=== PATIENT | female | born 1955 | race Caucasian/White ===

== ENCOUNTER 2016-08-08 07:01 | Observation (INO) | payer OTHER ==
[2016-08-08] MEDS ORDERED: Lopressor 25MG Tab PO ONE (07:10)
[2016-08-08] MEDS ORDERED: BABY ASPIRIN 81 MG CHEW PO ONE (07:10)
[2016-08-08] MEDS ORDERED: NITRO-BID 2% UD PACKETS TOP ONE (07:10)
--- NOTE | 2016-08-08 07:17 | ERPHSYRPT ---
- History of Present Illness Time Seen by Provider: 08/08/16 07:09 Historian: patient, family Exam Limitations: no limitations Patient Subjective Stated Complaint: PT REPORTS CHEST PAIN RADIATING TO BILATERAL NECK ET UPPER BACK BEGINNING YESTERDAY-PAIN INCREASES WITH DEEP BREATHING Triage Nursing Assessment: PT PALE WARM ET DRY-A & O X 3-RESP EASY ET NONLABORED -RIGHT RADIAL PULSE REGULAR ET STRONG Physician History: patient complains of CP, onset yesterday am; woke her up; some relief with tylenol; no asa or ntg; stayed constant until worsened this am and came in; some neck and jaw pain last thursday; no sob; no fever; no trauma; no prior hx; strong family hx of heart disease; no nausea or diaphoresis; no other complaints ; no syncope Timing/Duration: yesterday, day(s) (episode of neck and jaw pain Thursday), gradual onset, worse Activities at Onset: rest Quality: aching Location: substernal Chest Pain Radiation: no radiation Severity of Pain-Max: moderate (6/10) Severity of Pain-Current: moderate (6/10) Modifying Factors: Improves With: breathing (aggravates pain), exertion ( aggravates pain), lying down (helps) Associated Symptoms: heartburn, hurts to breathe Prior Chest Pain/Cardiac Workup: no prior chest pain, no prior cardiac workup Nitro Today/Relief: no nitro taken today, provided by ED Aspirin Treatment Today: no aspirin today, provided by ED Allergies/Adverse Reactions: duloxetine [From Cymbalta] Allergy (Intermediate, Verified 08/08/16 07:14) Home Medications: Lisinopril 20 mg [Zestril 20 MG] 20 mg PO DAILY 05/05/15 [History] Phenytoin Sod Extended 100 mg* [Dilantin 100 MG] 100 mg PO 5XD 05/05/15 [ History] Sennosides [Senna Laxative] 8.6 mg PO DAILY 05/05/15 [History] Nitroglycerin 0.4 mg (Ed) [Nitrostat 0.4 MG (ED)] 0.4 mg SL UD 05/07/15 [ History] Dexlansoprazole [Dexilant] 60 mg PO DAILY 12/06/15 [History] Methylphenidate HCl [Ritalin] 20 mg PO TID 08/08/16 [History] Sertraline HCl [Zoloft] 150 mg PO DAILY 08/08/16 [History] Tramadol HCl 50 mg [Ultram 50 mg] 50 mg PO BID 08/08/16 [History] Trospium Chloride [Trospium Chloride ER] 60 mg PO DAILY 08/08/16 [History] Hx Tetanus, Diphtheria Vaccination/Date Given: No Hx Influenza Vaccination/Date Given: Yes (2015) Hx Pneumococcal Vaccination/Date Given: Yes Immunizations Up to Date: Yes - Review of Systems Constitutional: No Symptoms Eyes: No Symptoms Ears, Nose, & Throat: No Symptoms Respiratory: No Cough, No Cyanosis, No Dyspnea, No Wheezing Cardiac: Chest Pain, No Edema, No Palpitations, No Syncope Abdominal/Gastrointestinal: No Abdominal Pain, No Nausea, No Vomiting, No Diarrhea Genitourinary Symptoms: No Symptoms Musculoskeletal: Arthralgias, No Neck Pain, No Fall, No Injury Skin: No Symptoms Neurological: Seizure (history), No Focal Weakness, No Paralysis, No Parasthesia , No Speech Changes Psychological: No Symptoms Endocrine: No Symptoms Hematologic/Lymphatic: No Symptoms Immunological/Allergic: No Symptoms - Past Medical History Pertinent Past Medical History: Yes Neurological History: Seizures ENT History: Other Cardiac History: Angina, Hypertension Respiratory History: No Pertinent History Endocrine Medical History: No Pertinent History Musculoskeletal History: Fibromyalgia, Fractures, Osteoporosis GI Medical History: GERD, Other History: Other Psycho-Social History: Depression Female Reproductive Disorders: No Pertinent History Other Medical History: BLISTER BEHIND L RETINA\. constipation - Past Surgical History Past Surgical History: Yes Neuro Surgical History: No Pertinent History Cardiac: No Pertinent History Respiratory: No Pertinent History Gastrointestinal: Other Genitourinary: No Pertinent History Musculoskeletal: Joint Replacement, Orthopedic Surgery Female Surgical History: Tubal Ligation Other Surgical History: gastroplasty, right shoulder, bilateral hip/knee surgeries. - Social History Smoking Status: Former smoker Exposure to second hand smoke: No Alcohol Use: None Drug Use: none Patient Lives Alone: No Significant Family History: heart disease, hypertension - Female History Hx Now: No - Nursing Vital Signs Temperature: 98.1 F Temperature Source: Oral Pulse Rate: 99 Respiratory Rate: 22 Pain Intensity: 6 - Physical Exam General Appearance: moderate distress, alert, thin Eye Exam: PERRL/EOMI, eyes nml inspection, No photophobia Ears, Nose, Throat Exam: normal ENT inspection, TMs normal, pharynx normal, moist mucous membranes Neck Exam: normal inspection, non-tender, supple, full range of motion, No meningismus, No carotid bruit, No JVD Respiratory Exam: normal breath sounds, lungs clear, airway intact, No chest tenderness, No respiratory distress, No crackles/rales, No rhonchi, No wheezing , No pleural rub Cardiovascular Exam: regular rate/rhythm, normal heart sounds, normal peripheral pulses, tachycardia (101), capillary refill <2 sec, No murmur, No friction rub Gastrointestinal/Abdomen Exam: soft, normal bowel sounds, No tenderness, No distention, No mass, No guarding, No pulsatile mass, No rebound, No organomegaly Pelvic Exam: deferred Rectal Exam: deferred Back Exam: normal inspection, normal range of motion, No CVA tenderness, No vertebral tenderness, No rash Extremity Exam: normal inspection, normal range of motion, pelvis stable, No franky's sign, No pedal edema Neurologic Exam: alert, oriented x 3, cooperative, career services coordinator II-XII nml as tested, normal mood/affect, nml cerebellar function, nml station & gait Skin Exam: normal color, warm, dry, No rash SpO2 Interpretation: normal SpO2: 98 Oxygen Delivery: Room Air - Course Nursing assessment & vital signs reviewed: Yes EKG Interpreted by Me: RATE (84), Sinus Rhythm, NORMAL AXIS, NORMAL INTERVALS, NORMAL QRS, NORMAL ST-T, Other (compared to old EKG from 02-04-12; no change) Rhythm Strip: Rate (84), Normal Sinus Rhythm - Radiology Exams Chest X-ray Interpretation: Interpreted by me, Negative, No Pneumonia, No Pneumothorax , Nml Heart Size, No Infiltrates, Nml Mediastinum, Other (old surgical repair left shoulder) Ordered Tests: Active Orders 24 hr Category Date Time Status Art Objects 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 STAT Care 08/08/16 07:10 Active EKG-ER Only STAT Care 08/08/16 07:10 Active IV Insertion STAT Care 08/08/16 07:10 Active Oxygen-ED Only NASAL CANNULA 2 lpm Care 08/08/16 07:10 Active Pulse Oximetry (ED) STAT Care 08/08/16 07:10 Active Re-Check Vital Signs STAT Care 08/08/16 07:10 Active CHEST 1 VIEW (PORTABLE) Stat Exams 08/08/16 07:10 Taken CBC W DIFF Stat Lab 08/08/16 07:27 Completed CMP Stat Lab 08/08/16 07:27 Completed NT PRO BNP Stat Lab 08/08/16 07:27 Completed PROTIME WITH INR Stat Lab 08/08/16 07:27 Completed TROPONIN Q3H Lab 08/08/16 07:15 Completed TROPONIN Q3H Lab 08/08/16 10:15 Ordered TROPONIN Q3H Lab 08/08/16 13:15 Ordered TROPONIN Q3H Lab 08/08/16 16:15 Ordered TROPONIN Q3H Lab 08/08/16 19:15 Ordered Transfer Order Routine Transfer 08/08/16 08:38 Ordered Medication Summary Generic Name Dose Route Start Last Admin Trade Name Freq PRN Reason Stop Dose Admin Sodium Chloride 1,000 mls @ 50 mls/hr 08/08/16 07:15 08/08/16 07:38 Sodium Chloride 0.9% 1000 Ml IV 09/07/16 07:14 50 mls/hr .Q20H PASCUAL Administration Discontinued Medications Generic Name Dose Route Start Last Admin Trade Name Freq PRN Reason Stop Dose Admin Aspirin 324 mg 08/08/16 07:10 08/08/16 07:38 Baby Aspirin 81 Mg Chew PO 08/08/16 07:11 324 mg STAT ONE Administration Aspirin Confirm 08/08/16 07:36 Baby Aspirin 81 Mg Chew Administered 08/08/16 07:37 Dose 324 mg .ROUTE .STK-MED ONE Famotidine 20 mg 08/08/16 08:15 Pepcid 20 Mg Vial IV 08/08/16 08:16 STAT ONE Sodium Chloride Confirm 08/08/16 07:36 Sodium Chloride 0.9% 1000 Ml Administered 08/08/16 07:37 Dose 1,000 mls @ ud .ROUTE .STK-MED ONE Metoprolol Tartrate 25 mg 08/08/16 07:10 08/08/16 07:38 Lopressor 25mg Tab PO 08/08/16 07:11 25 mg STAT ONE Administration Metoprolol Tartrate Confirm 08/08/16 07:36 Lopressor 25mg Tab Administered 08/08/16 07:37 Dose 25 mg .ROUTE .STK-MED ONE Morphine Sulfate 2 mg 08/08/16 08:15 Morphine Sulfate 2 Mg Inj IV 08/08/16 08:16 STAT ONE Nitroglycerin 1 gm 08/08/16 07:10 08/08/16 07:38 Nitro-Bid 2% Ud Packets TOP 08/08/16 07:11 1 gm STAT ONE Administration Nitroglycerin Confirm 08/08/16 07:36 Nitro-Bid 2% Ud Packets Administered 08/08/16 07:37 Dose 1 gm .ROUTE .STK-MED ONE Ondansetron HCl 4 mg 08/08/16 08:15 Zofran 4 Mg/2 Ml Vial IV 08/08/16 08:16 STAT ONE Lab/Rad Data: Laboratory Result Diagrams 08/08/16 07:27 08/08/16 07:27 Laboratory Results 08/08/16 08/08/16 08/08/16 Range/Units 07:27 07:27 07:27 WBC 5.4 (4.0-10.5) K/mm3 RBC 4.38 (4.1-5.4) M/mm3 Hgb 10.8 L (12.0-16.0) gm/dl Hct 35.1 (35-47) % MCV 80.1 (78-100) fl MCH 24.6 L (26-32) pg MCHC 30.8 L (32-36) g/dl RDW 15.1 H (11.5-14.0) % Plt Count 259 (150-450) K/mm3 MPV 9.5 (6-9.5) fl Gran % 65.8 (36.0-66.0) % Lymphocytes % 19.4 L (24.0-44.0) % Monocytes % 9.9 (0.0-12.0) % Eosinophils % 4.5 (0.00-5.0) % Basophils % 0.4 (0.0-0.4) % Basophils # 0.02 (0-0.4) INR 0.95 (0.8-3.0) Sodium 142 (136-145) mEq/L Potassium 3.8 (3.5-5.1) mEq/L Chloride 103 (98-107) mEq/L Carbon Dioxide 24.5 (21-32) mEq/L Anion Gap 18.2 H (5-15) MEQ/L BUN 4 L (9-20) mg/dL Creatinine 0.55 (0.55-1.30) mg/dl Estimated GFR > 60 ML/MIN Glucose 95 (70-110) MG/DL Calcium 9.0 (8.5-10.1) mg/dL Total Bilirubin 0.2 (0.2-1.0) mg/dL AST 24 (15-37) U/L ALT 19 (12-78) U/L Alkaline Phosphatase 81 (46-116) U/L Troponin I (0.000-0.056) ng/ml NT-Pro-B Natriuret Pep 98 (0-125) pg/ml Serum Total Protein 7.3 (6.4-8.2) gm/dL Albumin 3.5 (3.4-5.0) g/dL 08/08/16 Range/Units 07:15 WBC (4.0-10.5) K/mm3 RBC (4.1-5.4) M/mm3 Hgb (12.0-16.0) gm/dl Hct (35-47) % MCV (78-100) fl MCH (26-32) pg MCHC (32-36) g/dl RDW (11.5-14.0) % Plt Count (150-450) K/mm3 MPV (6-9.5) fl Gran % (36.0-66.0) % Lymphocytes % (24.0-44.0) % Monocytes % (0.0-12.0) % Eosinophils % (0.00-5.0) % Basophils % (0.0-0.4) % Basophils # (0-0.4) INR (0.8-3.0) Sodium (136-145) mEq/L Potassium (3.5-5.1) mEq/L Chloride (98-107) mEq/L Carbon Dioxide (21-32) mEq/L Anion Gap (5-15) MEQ/L BUN (9-20) mg/dL Creatinine (0.55-1.30) mg/dl Estimated GFR ML/MIN Glucose (70-110) MG/DL Calcium (8.5-10.1) mg/dL Total Bilirubin (0.2-1.0) mg/dL AST (15-37) U/L ALT (12-78) U/L Alkaline Phosphatase (46-116) U/L Troponin I < 0.017 (0.000-0.056) ng/ml NT-Pro-B Natriuret Pep (0-125) pg/ml Serum Total Protein (6.4-8.2) gm/dL Albumin (3.4-5.0) g/dL reviewed - Progress Progress: improved (after meds), re-examined (after meds) Air Movement: good Progress Note: 08/08/16 07:19 EKG done and wnl; lab and cxr pending; O2 applied; meds given; sats good; at bedside; will monitor and recheck 08/08/16 07:36 CXR NAD; CBC wnl wbc; anemia H/;H = 10.8/35.1 low indices; VS ok 08/08/16 07:52 recheck and vS improved; pain getting some relief, INR wnl; other labs pending 08/08/16 08:16 rechecked; renal fx, lytes; troponin all wnl; pain improved but still present; vs ok; will medicate and recheck; will consult dr Kalpana Osuna for disposition 08/08/16 08:21 Dr Kalpana Osuna consulted and will admit; Patient and family notified 08/08/16 08:43 patient notified of admission; questions answered Blood Culture(s) Obtained: No Antibiotics given: No Discussed with : Tommy (Consulted and accepted for admission) Counseled pt/family regarding: lab results, diagnosis, need for follow-up, rad results - Departure Time of Disposition: 08:45 Departure Disposition: Observation Clinical Impression: Chest pain at rest, Anemia, Hypertension Condition: Serious Critical Care Time: No Referrals: RENAY OSUNA [Primary Care Provider] -
[2016-08-08 07:31] LABS: BASOPHIL % 0.4 % (0.0-0.4); Eosinophil % 4.5 % (0.00-5.0); Granulocytes % 65.8 % (36.0-66.0); Lymphocytes % 19.4 % (24.0-44.0); Mean Cell Volume 80.1 fl (78-100); Mean Platelet Volume 9.5 fl (6-9.5); Monocytes % 9.9 % (0.0-12.0); Platelet Count 259 K/mm3 (150-450); Red Blood Count 4.38 M/mm3 (4.1-5.4); Red Cell Distribution Width 15.1 % (11.5-14.0); White Blood Count 5.4 K/mm3 (4.0-10.5)
[2016-08-08 07:32] LABS: Mean Corpuscular Hemoglobin 24.6 pg (26-32)
[2016-08-08] MEDS ORDERED: Sodium Chloride 0.9% 1000 ML 1,000 ML ONE (07:36)
[2016-08-08] MEDS ORDERED: NITRO-BID 2% UD PACKETS ONE (07:36)
[2016-08-08] MEDS ORDERED: Lopressor 25MG Tab ONE (07:36)
[2016-08-08] MEDS ORDERED: BABY ASPIRIN 81 MG CHEW ONE (07:36)
[2016-08-08] MEDS: Sodium Chloride 0.9% 1000 ML 1,000 ML IV SCH (07:38)
[2016-08-08 07:43] LABS: INR 0.95 (0.8-3.0); PROTIME 10.7 SECONDS (9.95-12.35)
[2016-08-08 07:57] LABS: ALBUMIN 3.5 g/dL (3.4-5.0); ALKALINE PHOSPHATASE 81 U/L (46-116); ANION GAP 18.2 MEQ/L (5-15); BILIRUBIN,TOTAL 0.2 mg/dL (0.2-1.0); BLOOD UREA NITROGEN 4 mg/dL (9-20); CHLORIDE 103 mEq/L (98-107); Carbon Dioxide 24.5 mEq/L (21-32); Glucose 95 MG/DL (70-110); Potassium 3.8 mEq/L (3.5-5.1); SGOT/AST 24 U/L (15-37); SGPT/ALT 19 U/L (12-78); SODIUM 142 mEq/L (136-145); Total Protein 7.3 gm/dL (6.4-8.2)
[2016-08-08] MEDS ORDERED: MORPHINE SULFATE 2 MG INJ IV ONE (08:15)
[2016-08-08] MEDS ORDERED: Pepcid 20 MG VIAL IV ONE ×2 (08:15→08:46)
[2016-08-08] MEDS ORDERED: Zofran 4 MG/2 ML VIAL IV ONE (08:15)
[2016-08-08] MEDS ORDERED: Zofran 4 MG/2 ML VIAL ONE (08:45)
[2016-08-08] MEDS ORDERED: MORPHINE SULFATE 2 MG INJ ONE (08:46)
--- NOTE | 2016-08-08 09:04 | XRAY ---
Indication: Chest pain. Comparison: July 22, 2010 Portable chest remains clear. Heart and mediastinal structures within normal limits for AP portable technique. Bony thorax intact again with osteopenia and degenerative changes. There is now old left proximal humeral fracture with intact orthopedic hardware. Impression: Nonacute chest with chronic features.
[2016-08-08] MEDS ORDERED: Senokot-S Tablet PO PRN (09:50)
[2016-08-08] MEDS ORDERED: MILK OF MAGNESIA 30 ML PO PRN (09:50)
[2016-08-08] MEDS ORDERED: MAALOX ES 30 ML UNIT DOSE PO PRN (09:50)
[2016-08-08] MEDS: MORPHINE SULFATE 2 MG INJ IV PRN ×3 (11:37→19:59)
[2016-08-08] MEDS: NITRO-BID 2% UD PACKETS TOP SCH ×2 (12:58→22:18)
[2016-08-08] MEDS ORDERED: SENOKOT 8.6 MG PO PRN (14:31)
[2016-08-08] MEDS: Dilantin 100 MG PO SCH ×3 (15:08→22:18)
[2016-08-08] MEDS: ULTRAM 50 MG PO PRN ×2 (15:19→22:28)
[2016-08-08] MEDS ORDERED: solu-MEDROL 125 MG IV ONE (17:12)
--- NOTE | 2016-08-08 17:15 | PCM.HP ---
History of Present Illness - Chief Complaint Chief Complaint: CHEST PAIN R/O Date: 08/08/16 History of Present Illness: is a 61 year old female. who has been having intermittent chest pains with deep breathing, but also pains in her neck and then some aching in her shoulder joints as well. She denies coughing or shortness of breath or orthopnea. She has not had swelling or calf pain. She had a cardiac cath many years ago and was told she has some disease but no intervention at that time and no f/u testing since then. She Has no fever, chills and no new medications. - Review of Systems Constitutional: No Fever, No Chills Eyes: No Symptoms Ears, Nose, & Throat: No Symptoms Respiratory: No Cough, No Short Of Breath Cardiac: Chest Pain, No Edema, No Palpitations, No Syncope, No Orthopnea, No PND Abdominal/Gastrointestinal: No Abdominal Pain, No Nausea, No Vomiting, No Diarrhea Genitourinary Symptoms: No Dysuria Musculoskeletal: No Back Pain, No Neck Pain Skin: No Rash Neurological: No Dizziness, No Focal Weakness, No Sensory Changes Psychological: No Symptoms Endocrine: No Symptoms Hematologic/Lymphatic: No Symptoms Immunological/Allergic: No Symptoms Medications & Allergies Home Medications: Home Medication List Dexlansoprazole [Dexilant] 60 mg PO DAILY 08/08/16 [History Confirmed 08/08/16] Estradiol [Estrace] 1 mg PO DAILY 08/08/16 [History Confirmed 08/08/16] Lisinopril 20 mg [Zestril 20 MG] 20 mg PO DAILY 08/08/16 [History Confirmed 08/08/16] Methylphenidate HCl [Ritalin] 20 mg PO TID 08/08/16 [History Confirmed 08/08/16] Phenytoin Sod Extended 100 mg* [Dilantin 100 MG] 100 mg PO 5XD 08/08/16 [ History Confirmed 08/08/16] Sennosides [Senna] 1 - 2 tab PO DAILY 08/08/16 [History Confirmed 08/08/16] Sertraline HCl 50 mg [Zoloft 50 mg Tablet] 150 mg PO DAILY 08/08/16 [ History Confirmed 08/08/16] Tramadol HCl 50 mg [Ultram 50 mg] 50 mg PO BID 08/08/16 [History Confirmed 08/08/16] Trospium Chloride [Trospium Chloride ER] 60 mg PO BID 08/08/16 [History Confirmed 08/08/16] Allergies/Adverse Reactions: Allergies Allergy/AdvReac Type Severity Reaction Status Date / Time duloxetine [From Cymbalta] Allergy Intermediate Verified 08/08/16 07:14 - Past Medical History Past Medical History: Yes Neurological History: Seizures ENT History: Other Cardiac History: Angina, Hypertension Respiratory History: No Pertinent History Endocrine Medical History: No Pertinent History Musculoskelatal History: Fibromyalgia, Fractures, Osteoporosis GI Medical History: GERD, Other History: Other Pyscho-Social History: Depression Reproductive Disorders: No Pertinent History Comment: BLISTER BEHIND BOTH RETINA\. NARCOLEPSY. constipation - Female History Are you now?: No - Past Surgical History Past Surgical History: Yes Neuro Surgical History: No Pertinent History Cardiac History: No Pertinent History Respiratory Surgery: No Pertinent History GI Surgical History: Other Genitourinary Surgical Hx: No Pertinent History Musculskeletal Surgical Hx: Joint Replacement, Orthopedic Surgery Female Surgical History: Tubal Ligation Other Surgical History: gastroplasty, right shoulder, bilateral hip/knee surgeries. LT ARM, LT FOOT - Social History Smoking Status: Former smoker Exposure to second hand smoke: No Alcohol: None Drug Use: none Significant Family History: heart disease, hypertension - Physical Exam Vital Signs: Vital Signs - 24 hr Temp Pulse Pulse Resp BP Pulse Ox 08/08/16 14:53 56 L 18 98 08/08/16 11:34 98.1 F 75 18 157/70 92 L 08/08/16 10:05 97.6 F 68 18 146/76 99 08/08/16 09:02 70 16 109/63 100 08/08/16 08:45 98.1 F 99 H 22 98 08/08/16 07:45 74 16 145/62 99 08/08/16 07:18 99 08/08/16 07:11 98.1 F 08/08/16 07:03 99 H 95 H 22 162/77 98 Oxygen-Last 24 hours O2 Percentage 2 Liters = 28% O2 Percentage 2 Liters = 28% O2 Percentage 2 Liters = 28% General Appearance: no apparent distress, alert Neurologic Exam: alert, oriented x 3, cooperative, normal mood/affect, nml cerebellar function, nml station & gait, sensation nml, No motor deficits Eye Exam: PERRL/EOMI, eyes nml inspection Ears, Nose, Throat Exam: normal ENT inspection, TMs normal, pharynx normal, moist mucous membranes Neck Exam: normal inspection, non-tender, supple, full range of motion Respiratory Exam: normal breath sounds, lungs clear, No respiratory distress Cardiovascular Exam: regular rate/rhythm, normal heart sounds, normal peripheral pulses Gastrointestinal/Abdomen Exam: soft, normal bowel sounds, No tenderness, No mass Back Exam: normal inspection, normal range of motion, No CVA tenderness, No vertebral tenderness Extremity Exam: normal inspection, normal range of motion, pelvis stable Skin Exam: normal color, warm, dry, No rash Lymphatic Exam: No adenopathy Results - Labs Lab/Micro Results: Lab Results-Last 24 Hours 08/08/16 08/08/16 Range/Units 11:00 13:15 Troponin I < 0.017 < 0.017 (0.000-0.056) ng/ml - Other Procedures and Tests Respiratory Therapy 08/08/16 14:53 Oxygen NASAL CANNULA 2 lpm 08/08/16 15:06 EKG ONCE 08/09/16 05:00 EKG ONCE 08/10/16 05:00 EKG ONCE 08/11/16 05:00 EKG ONCE Assessment/Plan (1) Chest pain Current Visit: Yes Status: Chronic Assessment & Plan: with her hormone therapy will add on a D-Dimer she has no other vital sign abnormalities so will hold off the CT right now unless the D-dimer is positive. The troponins have been negative and serial ekg remains normal. With the pleuritic nature pain and the also arthralgias like pain in her shoulders she will give a dose of solumedrol to see if this helps she has aspirin lovenox and teds for dvt ppx. Code(s): R07.9 - CHEST PAIN, UNSPECIFIED (2) Anemia Current Visit: Yes Status: Acute Assessment & Plan: check iron levels Code(s): D64.9 - ANEMIA, UNSPECIFIED (3) Hypertension Current Visit: Yes Status: Acute Code(s): I10 - ESSENTIAL (PRIMARY) HYPERTENSION (4) Fibromyalgia Current Visit: Yes Status: Chronic (5) Narcolepsy Current Visit: Yes Status: Chronic Code(s): G47.419 - NARCOLEPSY WITHOUT CATAPLEXY (6) Seizure Current Visit: Yes Status: Chronic Code(s): R56.9 - UNSPECIFIED CONVULSIONS (7) Osteoporosis Current Visit: Yes Status: Chronic Code(s): M81.0 - AGE-RELATED OSTEOPOROSIS W/O CURRENT PATHOLOGICAL FRACTURE (8) GERD (gastroesophageal reflux disease) Current Visit: Yes Status: Chronic Code(s): K21.9 - GASTRO-ESOPHAGEAL REFLUX DISEASE WITHOUT ESOPHAGITIS (9) Depression Current Visit: Yes Status: Chronic Code(s): F32.9 - MAJOR DEPRESSIVE DISORDER, SINGLE EPISODE, UNSPECIFIED
[2016-08-08] MEDS: TYLENOL 325 MG PO PRN (18:44)
[2016-08-08] MEDS ORDERED: TROSPIUM CHLORIDE 60 MG PO SCH (22:00)
[2016-08-08] MEDS: Pepcid 20 MG PO SCH (22:18)
[2016-08-09] MEDS: Sodium Chloride 0.9% 1000 ML 1,000 ML IV SCH ×2 (04:10→23:42)
[2016-08-09] MEDS: MORPHINE SULFATE 2 MG INJ IV PRN ×5 (04:37→22:54)
[2016-08-09] MEDS: Zofran 4 MG/2 ML VIAL IV PRN ×2 (04:50→09:07)
[2016-08-09] MEDS: TYLENOL 325 MG PO PRN (04:50)
[2016-08-09] MEDS: NITRO-BID 2% UD PACKETS TOP SCH (06:04)
[2016-08-09] MEDS: Dilantin 100 MG PO SCH ×5 (06:04→22:40)
[2016-08-09] MEDS: ENOXAPARIN SODIUM SQ SCH (09:14)
[2016-08-09] MEDS: Ecotrin 325 MG PO SCH (09:17)
[2016-08-09] MEDS: ZOLOFT 50 MG TABLET PO SCH (09:17)
[2016-08-09] MEDS: Pepcid 20 MG PO SCH ×2 (09:17→22:40)
[2016-08-09] MEDS: Protonix 40MG Tablet PO SCH (09:17)
[2016-08-09] MEDS: Ditropan XL 5 MG PO SCH (09:17)
[2016-08-09] MEDS: Zestril 20 MG PO SCH (09:17)
[2016-08-09] MEDS ORDERED: NON-FORMULARY ITEM (Dexlansoprazole [Dexilant] 60 MG) PO SCH (10:00)
[2016-08-09] MEDS ORDERED: PNEUMOVAX 23 IM ONE (10:00)
[2016-08-09] MEDS: Phenergan 25 MG INJ IV PRN (10:00)
--- NOTE | 2016-08-09 10:25 | PCM.NOTE ---
Date and Time: 08/09/16 1019 Subjective Assessment: She has had some nausea and vomitied x 2 today. She denies any nausea or vomiting at home. She denies diarrhea or abdominal pain. She reports her pain is between her shoulders. She denies any recent falls. She states that she used to be on percocet but because of her insurance, she cannot be on pain medication until she sees a paint tinter which is scheduled for early September 2016. She would like to be on a regular diet. She denies shortness of breath or current chest pain. She reports she has a hx of fibromyalgia. - Review of Systems Constitutional: No Symptoms Eyes: No Symptoms Ears, Nose, & Throat: No Symptoms Respiratory: No Symptoms Cardiac: No Symptoms Abdominal/Gastrointestinal: No Symptoms Genitourinary Symptoms: No Symptoms Musculoskeletal: Back Pain, Neck Pain Skin: No Symptoms Neurological: No Symptoms Objective Exam General Appearance: no apparent distress, alert Neurologic Exam: alert, cooperative, normal mood/affect Skin Exam: normal color, warm, dry, No rash Lymphatic Exam: inguinal node tender (R) Respiratory Exam: normal breath sounds, No crackles/rales, No rhonchi, No wheezing Cardiovascular Exam: regular rate/rhythm, normal heart sounds, No murmur, No friction rub, No gallop Gastrointestinal/Abdomen Exam: soft, normal bowel sounds, No tenderness, No distention, No mass, No guarding Extremity Exam: normal inspection, other (no c/c/e) Back Exam: No rash, No point tenderness OBJECTIVE DATA Vital Signs: Vital Signs - 24 hr Temp Pulse Resp BP Pulse Ox 08/09/16 08:08 97 08/09/16 07:13 97.6 F 68 20 125/58 97 08/09/16 04:00 98.1 F 73 16 114/66 98 08/08/16 23:40 97.4 F 92 H 22 122/58 94 L 08/08/16 19:48 97.8 F 75 18 136/66 97 08/08/16 19:39 78 22 96 08/08/16 16:00 97.1 F 71 18 138/65 95 08/08/16 14:53 56 L 18 98 08/08/16 11:34 98.1 F 75 18 157/70 92 L Oxygen-Last 24 hours O2 Percentage 2 Liters = 28% O2 Percentage 2 Liters = 28% O2 Percentage 2 Liters = 28% O2 Percentage 2 Liters = 28% Pain Assessment - Last Documented Pain Intensity 6 Pain Scale Used 0-10 Pain Scale Intake and Output: Intake & Output 08/07/16 08/08/16 08/09/16 08/10/16 06:59 06:59 06:59 06:59 Intake Total 1987 360 Output Total 4300 Balance -2313 360 Weight 65.544 kg Lab Results: Lab Results-Last 24 Hours 08/08/16 08/08/16 08/08/16 Range/Units 11:00 13:15 16:29 ESR (0-20) mm/hr D-Dimer (0.00-0.49) mg/L Iron (50-175) ug/dl TIBC (250-450) ug/dl Iron Saturation (20-39) % Ferritin (8-388) Troponin I < 0.017 < 0.017 < 0.017 (0.000-0.056) ng/ml Triglycerides (30-200) mg/dL Cholesterol (100-200) mg/dL LDL Cholesterol (5-99) mg/dL HDL Cholesterol (35-60) mg/dL Heart Disease Risk Ratio 08/08/16 08/08/16 08/08/16 Range/Units 16:30 16:30 20:00 ESR (0-20) mm/hr D-Dimer (0.00-0.49) mg/L Iron 25 L (50-175) ug/dl TIBC 386 (250-450) ug/dl Iron Saturation 6.5 L (20-39) % Ferritin 7 L (8-388) Troponin I < 0.017 (0.000-0.056) ng/ml Triglycerides (30-200) mg/dL Cholesterol (100-200) mg/dL LDL Cholesterol (5-99) mg/dL HDL Cholesterol (35-60) mg/dL Heart Disease Risk Ratio 08/08/16 08/08/16 08/09/16 Range/Units 20:00 20:00 04:55 ESR 35 H (0-20) mm/hr D-Dimer 0.367 (0.00-0.49) mg/L Iron (50-175) ug/dl TIBC (250-450) ug/dl Iron Saturation (20-39) % Ferritin (8-388) Troponin I (0.000-0.056) ng/ml Triglycerides 68 (30-200) mg/dL Cholesterol 177 (100-200) mg/dL LDL Cholesterol 72 (5-99) mg/dL HDL Cholesterol 102 H (35-60) mg/dL Heart Disease Risk Ratio 1.7 Radiology Exams: Radiology Procedures Category Date Time Status LUMBAR LIMITED (2 OR 3 VIEWS) Routine Exams 08/09/16 10:18 Ordered Multi-Disciplinary Progress Notes: Multi-Disciplinary Progress Notes 08/09/16 02:22 Respiratory Note by Roberto Carlos Dasilva DOCUMENTED AND COMPLETED AN EKG THAT I CONFIRMED WAS DONE IN [facility]ARE [facility] . CHARGE SHOULD DROP WHEN CHARGES ARE DONE FOR 08/09/16. Initialized on 08/09/16 02:22 - END OF NOTE Assessment/Plan (1) Chest pain at rest Current Visit: Yes Status: Acute Assessment & Plan: She has ruled out for acute AK. EKG with sinus bradycardia this AM. No ST or T wave changes. Serial troponins have been negative and no events on telemetry. D/C nitro paste. Code(s): R07.9 - CHEST PAIN, UNSPECIFIED (2) Back pain Current Visit: Yes Status: Acute Assessment & Plan: Will check thoracic spine X-ray to rule out compression fracture and amylase and lipase to rule out pancreatitis. Code(s): M54.9 - DORSALGIA, UNSPECIFIED (3) Fibromyalgia Current Visit: Yes Status: Chronic (4) Vomiting alone Current Visit: Yes Status: Acute Assessment & Plan: Continue zofran and phenergan. May improve with removal of nitro paste. Code(s): R11.11 - VOMITING WITHOUT NAUSEA (5) Iron deficiency anemia Current Visit: Yes Status: Acute Assessment & Plan: Start ferrous sulfate and check stool for blood. Code(s): D50.9 - IRON DEFICIENCY ANEMIA, UNSPECIFIED
[2016-08-09 10:50] LABS: LIPASE 101 U/L (73-393)
[2016-08-09] MEDS: FEOSOL 325 MG PO SCH ×2 (14:00→22:40)
[2016-08-09] MEDS: ULTRAM 50 MG PO PRN ×2 (14:00→22:39)
--- NOTE | 2016-08-09 20:30 | XRAY ---
Indication: Upper back pain. No known injury. Comparison: None Frontal/lateral thoracic spine demonstrates 12 typical rib bearing thoracic segments with mild osteopenia, minimal multilevel anterior endplate spurring, minimal scoliosis, minimal T10/T11 anterior wedging deformity either developmental versus old injury, and epigastric postsurgical changes. No other bony, articular, or soft tissue abnormalities.
[2016-08-10] MEDS: MORPHINE SULFATE 2 MG INJ IV PRN ×5 (02:22→13:03)
[2016-08-10] MEDS: Dilantin 100 MG PO SCH ×5 (06:14→22:36)
[2016-08-10] MEDS: TYLENOL 325 MG PO PRN ×2 (08:37→17:03)
[2016-08-10] MEDS: Zestril 20 MG PO SCH (09:31)
[2016-08-10] MEDS: ENOXAPARIN SODIUM SQ SCH (09:31)
[2016-08-10] MEDS: Ditropan XL 5 MG PO SCH (09:31)
[2016-08-10] MEDS: ZOLOFT 50 MG TABLET PO SCH (09:31)
[2016-08-10] MEDS: Pepcid 20 MG PO SCH ×2 (09:32→22:36)
[2016-08-10] MEDS: FEOSOL 325 MG PO SCH ×3 (09:32→22:36)
[2016-08-10] MEDS: Protonix 40MG Tablet PO SCH (09:32)
[2016-08-10] MEDS: Ecotrin 325 MG PO SCH (09:32)
[2016-08-10] MEDS: Phenergan 25 MG INJ IV PRN (10:02)
--- NOTE | 2016-08-10 10:48 | PCM.NOTE ---
Date and Time: 08/10/16 1043 Subjective Assessment: She reports she has pain at the bottom of her ribs in her abdomen on both sides but maybe a little worse on the right side. She reports she continues to have nausea. She was able to eat yesterday. She denies diarrhea. She reports the pain in her abdomen is a hard ache and is constant. She reports she had dyspnea when she was off of her oxygen when she had pain. She has had a little bit of a dry cough. She is not sure if her upper abdominal pain is worse with eating or not. She is concerned about her gallbladder. - Review of Systems Constitutional: No Symptoms Eyes: No Symptoms Ears, Nose, & Throat: No Symptoms Respiratory: Cough Cardiac: No Symptoms Abdominal/Gastrointestinal: Abdominal Pain, Nausea, Vomiting, No Diarrhea, No Constipation Genitourinary Symptoms: No Symptoms Musculoskeletal: Other (chronic pain) Skin: No Symptoms Objective Exam General Appearance: other (nauseated, holding trash can) Neurologic Exam: alert, cooperative, normal mood/affect Skin Exam: normal color, warm, dry, No rash Respiratory Exam: normal breath sounds, lungs clear, No respiratory distress, No crackles/rales, No rhonchi, No wheezing Cardiovascular Exam: regular rate/rhythm, normal heart sounds, No murmur, No friction rub, No gallop Gastrointestinal/Abdomen Exam: soft, normal bowel sounds, tenderness, other ( mild right upper quadrant tenderness, no rigidity), No distention, No mass, No guarding Extremity Exam: normal inspection, other (no c/c/e) OBJECTIVE DATA Vital Signs: Vital Signs - 24 hr Temp Pulse Resp BP Pulse Ox 08/10/16 07:50 97 08/10/16 07:15 98.5 F 96 H 22 138/64 96 08/10/16 03:59 98.6 F 90 20 142/56 96 08/09/16 23:37 99.3 F 94 H 18 135/65 96 08/09/16 19:56 98 H 16 97 08/09/16 19:36 99.4 F 86 20 116/64 96 08/09/16 16:04 97.8 F 96 H 18 110/53 97 08/09/16 11:31 97.7 F 55 L 20 89/68 98 Oxygen-Last 24 hours O2 Percentage 2 Liters = 28% O2 Percentage 2 Liters = 28% O2 Percentage 2 Liters = 28% Pain Assessment - Last Documented Pain Intensity 4 Pain Scale Used 0-10 Pain Scale Intake and Output: Intake & Output 08/08/16 08/09/16 08/10/16 08/11/16 06:59 06:59 06:59 06:59 Intake Total 1986 2955 540 Output Total 5917 1238 1950 Balance -2313 -2793 -810 Weight 65.544 kg 67.132 kg Lab Results: Lab Results-Last 24 Hours 08/09/16 Range/Units 05:00 Amylase 25 (25-115) U/L Lipase 101 (73-393) U/L Radiology Exams: Radiology Procedures Category Date Time Status GALLBLADDER [US] Routine Exams 08/10/16 10:40 Ordered THORACIC SPINE (AP,LAT,SWIMM) Routine Exams 08/09/16 10:31 Completed Multi-Disciplinary Progress Notes: Multi-Disciplinary Progress Notes 08/10/16 08:06 Respiratory Note by Era Miguel room air spo2 97 no sob will leave o2 off. Initialized on 08/10/16 08:06 - END OF NOTE Assessment/Plan (1) Chest pain at rest Current Visit: Yes Status: Acute Assessment & Plan: Ruled out for acute MA. EKG normal today. With continued nausea, will check troponin again this AM. If this is negative, can discontinue tele. Code(s): R07.9 - CHEST PAIN, UNSPECIFIED (2) Back pain Current Visit: Yes Status: Acute Assessment & Plan: Amylase and lipase were normal yesterday. Code(s): M54.9 - DORSALGIA, UNSPECIFIED (3) Fibromyalgia Current Visit: Yes Status: Chronic (4) Vomiting alone Current Visit: Yes Status: Acute Assessment & Plan: Continue phenergan as needed. Zofran does not seem to help with her nausea. Code(s): R11.11 - VOMITING WITHOUT NAUSEA (5) Iron deficiency anemia Current Visit: Yes Status: Acute Assessment & Plan: Iron started. Code(s): D50.9 - IRON DEFICIENCY ANEMIA, UNSPECIFIED (6) Abdominal pain Current Visit: Yes Status: Acute Assessment & Plan: Check gallbladder US today. If negative, consider HIDA scan or upper endoscopy. Check CMP and CBC today. Code(s): R10.9 - UNSPECIFIED ABDOMINAL PAIN
[2016-08-10 11:14] LABS: BASOPHIL % 0.4 % (0.0-0.4); Eosinophil % 2.5 % (0.00-5.0); Granulocytes % 64.9 % (36.0-66.0); Mean Cell Volume 82.4 fl (78-100); Mean Platelet Volume 8.9 fl (6-9.5); Monocytes % 11.2 % (0.0-12.0); Platelet Count 242 K/mm3 (150-450); Red Blood Count 3.81 M/mm3 (4.1-5.4); Red Cell Distribution Width 15.3 % (11.5-14.0); White Blood Count 6.9 K/mm3 (4.0-10.5)
[2016-08-10 12:11] LABS: ALBUMIN 2.9 g/dL (3.4-5.0); ALKALINE PHOSPHATASE 66 U/L (46-116); BILIRUBIN,TOTAL 0.2 mg/dL (0.2-1.0); BLOOD UREA NITROGEN 3 mg/dL (9-20); CHLORIDE 105 mEq/L (98-107); Carbon Dioxide 28.2 mEq/L (21-32); Glucose 110 MG/DL (70-110); Potassium 3.7 mEq/L (3.5-5.1); SGOT/AST 17 U/L (15-37); SGPT/ALT 15 U/L (12-78); SODIUM 143 mEq/L (136-145); Total Protein 6.6 gm/dL (6.4-8.2)
[2016-08-10 12:28] LABS: Mean Corpuscular Hemoglobin 24.6 pg (26-32)
[2016-08-10] MEDS ORDERED: Sodium Chloride 0.9% 500 ML 500 ML IV ONE (14:35)
[2016-08-10] MEDS: ULTRAM 50 MG PO PRN (15:54)
[2016-08-10] MEDS ORDERED: CITROMA 296 ML PO ONE (16:13)
[2016-08-10] MEDS: NORCO 5/325 MG PO PRN ×2 (18:27→22:36)
--- NOTE | 2016-08-10 20:07 | XRAY ---
Indication: Right upper quadrant pain. Two-dimensional right upper quadrant abdominal sonogram performed. Comparison: September 18, 2015 Gallbladder again moderately distended without gallstones, wall thickening, or pericholecystic fluid. Common bile duct measures 5.5 mm. Bowel gas obscures the pancreas. Visualized portions of the liver homogeneous in echogenicity. No ascites. Right kidney measures 11.2 cm in length and appears sonographically normal. Impression: Again distended gallbladder without gallstones or biliary distention. Pancreas obscured due to overlying bowel gas. CT may yield further information if there remains further clinical concern. Comment: Preliminary report was given.
[2016-08-11] MEDS: NORCO 5/325 MG PO PRN ×4 (02:56→15:17)
[2016-08-11] MEDS: Sodium Chloride 0.9% 10 ML FLUSH Syringe IV SCH ×2 (06:16→14:03)
[2016-08-11] MEDS: Dilantin 100 MG PO SCH ×3 (06:16→14:01)
[2016-08-11] MEDS ORDERED: CITROMA 296 ML PO PRN (08:00)
[2016-08-11] MEDS: Ditropan XL 5 MG PO SCH (10:03)
[2016-08-11] MEDS: ENOXAPARIN SODIUM SQ SCH (10:04)
[2016-08-11] MEDS: Pepcid 20 MG PO SCH (10:04)
[2016-08-11] MEDS: FEOSOL 325 MG PO SCH ×2 (10:04→14:01)
[2016-08-11] MEDS: ZOLOFT 50 MG TABLET PO SCH (10:04)
[2016-08-11] MEDS: Ecotrin 325 MG PO SCH (10:04)
[2016-08-11] MEDS: Protonix 40MG Tablet PO SCH (10:04)
--- NOTE | 2016-08-11 13:35 | XRAY ---
Indication: Neck, chest, and upper back pain. Multiple contiguous axial images obtained through the chest using 80 cc Isovue 370 contrast and PE protocol. Comparison: None There is good opacification of the pulmonary arteries. No filling defect or pulmonary embolus. Heart is not enlarged. No pericardial effusion. Aorta is normal in course and caliber. Incidental aberrant right subclavian artery coursing retroesophageal. Right hilar calcified node. No pathologic mediastinal/hilar lymphadenopathy. Small hiatal hernia. Examination of the lung parenchyma demonstrates bilateral dependent atelectasis, left base fibrosis/scarring, and tiny left effusion. No suspicious pulmonary mass, nodule, infiltrate, or consolidation. Bony thorax intact with minimal degenerative changes throughout the spine. Limited upper abdomen demonstrates previous gastric bypass surgery, moderate scattered colonic fecal debris, and mild fatty liver. Impression: 1. Negative for pulmonary embolus. 2. Bilateral atelectasis, left base fibrosis/scarring, and tiny left effusion. No acute cardiopulmonary abnormalities. 3. Incidental fatty liver, small hiatal hernia, previous gastric bypass surgery, fecal stasis, fatty liver, and aberrant right subclavian artery. CT DI 17.54.
[2016-08-11 15:20] VITALS: BP 132/77; PULSE 78; O2SAT 96
--- NOTE | 2016-08-11 17:51 | PCM.DCORD ---
- Discharge Discharge Date: 08/11/16 Disposition: Home, Self-Care Condition: Stable Prescriptions: New Prednisone 10 mg [Deltasone 10 mg] 10 mg PO DAILY #26 tablet Continue Estradiol [Estrace] 1 mg PO DAILY Tramadol HCl 50 mg [Ultram 50 mg] 50 mg PO BID Sennosides [Senna] 1 - 2 tab PO DAILY Trospium Chloride [Trospium Chloride ER] 60 mg PO BID Sertraline HCl 50 mg [Zoloft 50 mg Tablet] 150 mg PO DAILY Phenytoin Sod Extended 100 mg* [Dilantin 100 MG] 100 mg PO 5XD Methylphenidate HCl [Ritalin] 20 mg PO TID Dexlansoprazole [Dexilant] 60 mg PO DAILY Discontinued Lisinopril 20 mg [Zestril 20 MG] 20 mg PO DAILY Follow up with: RENAY OSUNA [Primary Care Provider] -
--- NOTE | 2016-08-12 18:17 | PCM.DS ---
Discharge Summary Date of Admission: 08/08/16 09:48 Date of Discharge: 08/11/16 Admitting Physician: RENAY OSUNA Primary Care Provider: RENAY OSUNA Allergies Allergies duloxetine [From Cymbalta] Allergy (Intermediate, Verified 08/08/16 07:14) Hospital Summary - Hospital Course Hospital Course: She presented with pain with breathing in the chest and neck as well as some nausea and intermittent upper abdominal pains as well. She was placed in observation for chest pain rule out D dimer was done that was negative her troponins were trended and negative there were no ekg changes. She was given solumedrol the first nigth with no change but developed more nausea and vomiting over the weekend and ruq pain that showed distended gallbladder but otherwise unremarkable exam. She was still having the symptoms not much better on Thursday a CT PE protocol was done that did not show any significant cause for the pain. She was stable at this time and was discharged with a prednisone taper for pleuritic pain and will set up outpatient hida to further evaluate for possible chronic cholecystitis contributing. She has chronic constipation and did not have a bowel movement while in the hospital and she states she only typically goes once a week for the last many years. She reports a normal colonoscopy she thinks 5 years ago no previous egd. Her blood pressure was running low and her lisinopril was d/c and remained in the normal range after this. - Vitals & Intake/Output Vital Signs: Vital Signs Temperature 97.8 F 08/11/16 15:19 Pulse Rate 78 08/11/16 15:19 Respiratory Rate 18 08/11/16 15:19 Blood Pressure 132/77 08/11/16 15:19 O2 Sat by Pulse Oximetry 96 08/11/16 15:19 Oxygen-Last Documented O2 Percentage 2 Liters = 28% Intake & Output: Intake & Output 08/10/16 08/11/16 08/12/16 08/13/16 11:59 11:59 11:59 11:59 Intake Total 3380 2010 600 Output Total 7000 3600 1000 Balance -5409 -4336 -400 Weight 67.132 kg - Lab Result Diagrams: 08/10/16 11:11 08/10/16 11:11 - Radiology Exams Ordered Rad Exams-Entire Visit: Radiology Procedures Category Date Time Status CHEST WITH CONTRAST [CT] Routine Exams 08/11/16 07:57 Completed - Procedures and Test Procedures and Tests throughout Hospitalization: Therapy Orders & Screens 08/08/16 14:53 Oxygen NASAL CANNULA 2 lpm Comment: Diagnosis: CHEST PAIN R/O 08/08/16 15:06 EKG ONCE Comment: Diagnosis: CHEST PAIN R/O 08/09/16 05:00 EKG ONCE Comment: Diagnosis: CHEST PAIN R/O 08/10/16 05:00 EKG ONCE Comment: Diagnosis: CHEST PAIN R/O 08/11/16 05:00 EKG ONCE Comment: Diagnosis: CHEST PAIN R/O Discharge Exam General Appearance: no apparent distress Neurologic Exam: alert, oriented x 3, cooperative, other (she has rhythmic movements of mouth and tongue consistent with tardive dyskinesia), No confusion Skin Exam: warm, dry, No rash Eye Exam: pale conjunctivae, No scleral icterus Ears, Nose, Throat Exam: pharynx normal, No dry mucous membranes Neck Exam: non-tender, supple Respiratory Exam: lungs clear, No chest tenderness, No respiratory distress Cardiovascular Exam: regular rate/rhythm, No murmur Gastrointestinal/Abdomen Exam: soft, normal bowel sounds, tenderness (minimal), No distention, No mass Extremity Exam: normal inspection, No calf tenderness, No pedal edema Final Diagnosis/Problem List - Final Discharge Diagnosis/Problem (1) Chest pain Status: Chronic (2) Anemia Status: Acute (3) Hypertension Status: Acute (4) Fibromyalgia Status: Chronic (5) Narcolepsy Status: Chronic (6) Seizure Status: Chronic (7) Osteoporosis Status: Chronic (8) GERD (gastroesophageal reflux disease) Status: Chronic (9) Depression Status: Chronic - Discharge Discharge Date: 08/11/16 Disposition: Home, Self-Care Condition: Stable Prescriptions: New Prednisone 10 mg [Deltasone 10 mg] 10 mg PO DAILY #26 tablet Continue Estradiol [Estrace] 1 mg PO DAILY Tramadol HCl 50 mg [Ultram 50 mg] 50 mg PO BID Sennosides [Senna] 1 - 2 tab PO DAILY Trospium Chloride [Trospium Chloride ER] 60 mg PO BID Sertraline HCl 50 mg [Zoloft 50 mg Tablet] 150 mg PO DAILY Phenytoin Sod Extended 100 mg* [Dilantin 100 MG] 100 mg PO 5XD Methylphenidate HCl [Ritalin] 20 mg PO TID Dexlansoprazole [Dexilant] 60 mg PO DAILY Discontinued Lisinopril 20 mg [Zestril 20 MG] 20 mg PO DAILY Instructions: Atypical Chest Pain Follow up with: RENAY OSUNA [Primary Care Provider] - Call for Appointment (FOLLOW-UP IN 1 WEEK, CALL FOR APT IN AM ) Forms: Discharge Instructions
== END 2016-08-11 18:30 | disposition home or self-care (01) ==
LOC: ED 07:01 → MED SURG 09:48
PROVIDERS: ADMIT Family Medicine; ATTEND Family Medicine
DX: R07.9 Chest pain, unspecified (principal); D50.9 Iron deficiency anemia, unspecified; I10 Essential (primary) hypertension; M79.7 Fibromyalgia; G47.419 Narcolepsy without cataplexy; R56.9 Unspecified convulsions; M81.0 Age-related osteoporosis without current pathological fracture; K21.9 Gastro-esophageal reflux disease without esophagitis; F32.9 Major depressive disorder, single episode, unspecified; M54.9 Dorsalgia, unspecified; R11.11 Vomiting without nausea; R10.9 Unspecified abdominal pain; Z79.899 Other long term (current) drug therapy
CPT/HCPCS: 36000; 36415; 71010; 71260; 72072; 76705; 80053; 82150; 82728; 83540; 83550; 83690; 83880; 84484; 85025; 85379; 85610; 85652; 90732; 93005; 93041; 93268; 94760; 96360; 96361; 96374; 96375; 99284; 99285; G0378; J1650; J2270; J2405; J2550; J2930

== ENCOUNTER 2018-01-09 12:20 | Emergency (ER) | payer OTHER ==
[2018-01-09 12:30] VITALS: BP 170/96; PULSE 62; O2SAT 99
[2018-01-09] MEDS ORDERED: solu-MEDROL 125 MG IM ONE (12:38)
[2018-01-09] MEDS ORDERED: solu-MEDROL 125 MG ONE (12:39)
--- NOTE | 2018-01-09 12:44 | ERPHSYRPT ---
- History of Present Illness Time Seen by Provider: 01/09/18 12:32 Source: patient Exam Limitations: no limitations Patient Subjective Stated Complaint: Lower back pain with radiation down right hip Triage Nursing Assessment: Pt presents to the ED with complaints of lower back pain with radiation down right leg, worse with movement. Pt states hx of complaint x1 year with worsening yesterday. Pt states "I just need a shot and some steroids." Pt denies new injury, no distress noted, skin pwd Physician History: 62-year-old white female who states she has chronic back pain radiating down her posterior right hip. Arrives with complaint of worsening pain since yesterday she denies any new injury. She states that she has had an MRI about a year ago. She states that she has gotten injections of steroids and then sent home with steroids in the past secondary to this from her family doctor. She is not having any neurologic changes. Pain is located in the right low sacral area and radiates down her right hip. Past medical history includes joint replacement (bilateral knees, fibromyalgia, fractures, osteoporosis, GERD, depression, she states she had a blister behind her left retina in the past, constipation Past surgical history includes tubal ligation, Adan plasty, right shoulder surgery, bilateral hip surgeries, bilateral knee replacements social history former smoker Timing/Duration: other (chronic pain in her back worse since yesterday) Severity: moderate Modifying Factors: Improves With: nothing Associated Symptoms: denies symptoms Allergies/Adverse Reactions: duloxetine [From Cymbalta] Allergy (Intermediate, Verified 01/09/18 12:26) amitriptyline [From Elavil] Allergy (Verified 01/09/18 12:26) Home Medications: Dexlansoprazole [Dexilant] 60 mg PO DAILY 08/08/16 [History] Estradiol [Estrace] 1 mg PO DAILY 08/08/16 [History] Phenytoin Sod Extended 100 mg* [Dilantin 100 MG] 100 mg PO 5XD 08/08/16 [ History] Trospium Chloride [Trospium Chloride ER] 60 mg PO DAILY 08/08/16 [History] Fluticasone Propionate [Flonase NASAL] 16 gm NS DAILY 11/21/16 [History] Amlodipine Besylate 5 mg PO DAILY 01/09/18 [History] Ferrous Sulfate 325 mg PO DAILY 01/09/18 [History] Metoprolol Succinate [Toprol Xl] 50 mg PO DAILY 01/09/18 [History] Hx Tetanus, Diphtheria Vaccination/Date Given: No Hx Influenza Vaccination/Date Given: Yes Hx Pneumococcal Vaccination/Date Given: Yes Immunizations Up to Date: Yes - Review of Systems Constitutional: No Fever, No Chills Eyes: No Symptoms Ears, Nose, & Throat: No Symptoms Respiratory: No Cough, No Dyspnea Cardiac: No Chest Pain, No Edema, No Syncope Abdominal/Gastrointestinal: No Abdominal Pain, No Nausea, No Vomiting, No Diarrhea Genitourinary Symptoms: No Dysuria Musculoskeletal: Back Pain Skin: No Rash Neurological: No Dizziness, No Focal Weakness, No Sensory Changes Psychological: No Symptoms Endocrine: No Symptoms All Other Systems: Reviewed and Negative - Past Medical History Pertinent Past Medical History: Yes Neurological History: Seizures ENT History: Other Cardiac History: No Pertinent History Respiratory History: No Pertinent History Endocrine Medical History: No Pertinent History Musculoskeletal History: Arthritis, Fibromyalgia, Fractures, Osteoporosis GI Medical History: GERD, Other History: Other Psycho-Social History: Depression Female Reproductive Disorders: No Pertinent History Other Medical History: Partial seizures - Past Surgical History Past Surgical History: Yes Neuro Surgical History: No Pertinent History Cardiac: No Pertinent History Respiratory: No Pertinent History Gastrointestinal: Other Genitourinary: No Pertinent History Musculoskeletal: Joint Replacement, Orthopedic Surgery Female Surgical History: Tubal Ligation Other Surgical History: gastroplasty, right shoulder, bilateral hip/knee surgeries. LT ARM, LT FOOT - Social History Smoking Status: Former smoker Exposure to second hand smoke: Yes Alcohol Use: None Drug Use: none Patient Lives Alone: No Significant Family History: heart disease, hypertension - Female History Hx Now: No - Nursing Vital Signs Nursing Vital Signs: Initial Vital Signs Temperature 97.5 F 01/09/18 12:25 Pulse Rate 62 01/09/18 12:25 Respiratory Rate 15 01/09/18 12:25 Blood Pressure 170/96 01/09/18 12:25 O2 Sat by Pulse Oximetry 99 01/09/18 12:25 Pain Scale Pain Intensity [Back] 6 Pain Intensity 6 - Physical Exam General Appearance: mild distress Eye Exam: PERRL/EOMI, eyes nml inspection Ears, Nose, Throat Exam: normal ENT inspection, TMs normal, pharynx normal, moist mucous membranes Neck Exam: normal inspection, non-tender, supple, full range of motion Respiratory Exam: normal breath sounds, lungs clear, No respiratory distress Cardiovascular Exam: regular rate/rhythm, normal heart sounds, normal peripheral pulses Gastrointestinal/Abdomen Exam: soft, normal bowel sounds, No tenderness, No mass Back Exam: other (tender with palpation low sacral area midline) Extremity Exam: normal inspection, normal range of motion, pelvis stable Neurologic Exam: alert, oriented x 3, cooperative, packing clerk II-XII nml as tested, normal mood/affect, nml cerebellar function, nml station & gait, sensation nml, No motor deficits Skin Exam: normal color, warm, dry, No rash Lymphatic Exam: No adenopathy SpO2 Interpretation: normal (99%) SpO2: 99 Oxygen Delivery: Room Air - Course Nursing assessment & vital signs reviewed: Yes Ordered Tests: Medication Summary Generic Name Dose Route Start Last Admin Trade Name Mpq PRN Reason Stop Dose Admin Methylprednisolone Sodium Succinate 125 mg 01/09/18 12:38 Solu-Medrol 125 Mg IM 01/09/18 12:39 STAT ONE - Progress Progress: improved Progress Note: 01/09/18 12:42 62-year-old white female with history of chronic back pain radiating down her right leg who has had an MRI in the past. Arrives with complaint of similar pain since yesterday she denies any new injuries. She states she usually receives steroids injections for this and prednisone. She does not want any pain medications at this time she is requesting a steroid injection and prednisone. On physical examination she is tender in the low mid sacral region she has full range of motion to extremities. Sensation is intact to the lower extremities dorsal pedal posterior tibial pulses are intact 2 over 4 . She has good capillary refill to her toes. Will go ahead and give patient Solu-Medrol 125 mg IV set patient up with a prednisone 20 mg 2 tablets orally for 3 days then 1 tablet orally for 3 days. Patient to follow back up with her family doctor. Return for acute distress or for severe symptoms. - Departure Time of Disposition: 12:45 Departure Disposition: Home Clinical Impression: Back pain Qualifiers: Back pain location: low back pain Chronicity: unspecified Back pain laterality : right Sciatica presence: with sciatica Sciatica laterality: sciatica of right side Qualified Code(s): M54.41 - Lumbago with sciatica, right side Condition: Fair Critical Care Time: No Referrals: RENAY OSUNA [Primary Care Provider] - Instructions: Sciatica (DC) Additional Instructions: Return home. Prednisone as directed. Follow-up with your family doctor. Cold packs to area 24-48 hours. Return for acute distress or for severe symptoms.
== END 2018-01-09 12:54 | disposition home or self-care (01) ==
LOC: ED 12:20
DX: M54.41 Lumbago with sciatica, right side (principal); Z79.899 Other long term (current) drug therapy
CPT/HCPCS: 96372; 99283; J2930

== ENCOUNTER 2019-03-14 10:28 | Day surgery (SDC) | payer MEDICARE ==
[~2019-03-14 10:28] MED LIST: Sodium Chloride 0.9% 1000 ML 1,000 ML ONE
[2019-03-14] MEDS ORDERED: Sodium Chloride 0.9% 1000 ML 1,000 ML IV SCH (10:30)
[2019-03-14] MEDS ORDERED: Sodium Chloride 0.9% 1000 ML 1,000 ML ONE (12:34)
[2019-03-14] MEDS ORDERED: DIPRIVAN 200 MG/20 ML IV ONE (12:56)
[2019-03-14 13:53] VITALS: PULSE 92
[2019-03-14 14:24] VITALS: BP 110/61
[2019-03-14 14:36] VITALS: O2SAT 94
--- NOTE | 2019-03-15 09:55 | OP ---
SURGERY DATE: 03/14/19 SURGERY TIME: 1304 PREOPERATIVE DIAGNOSIS: 1. ABDOMINAL PAIN. 2. NAUSEA. 3. DECREASED APPETITE. POSTOPERATIVE DIAGNOSIS: 1. ANATOMICAL CHANGES CONSISTENT WITH PRIOR GASTRIC BYPASS SURGERY WITH GASTRITIS. 2. MODERATE SIZED 4 CM HIATAL HERNIA. 3. GASTROESOPHAGEAL REFLUX DISEASE WITH MILD DISTAL ESOPHAGITIS. PROCEDURE: 1. EGD with biopsies. SURGEON: Dr. Blanka Blanton. ANESTHESIA: MAC. ESTIMATED BLOOD LOSS: Minimal. COMPLICATIONS: None. SPECIMENS: 1. Distal esophageal biopsies, rule out Jacobo's disease. PROCEDURE DETAILS: This is a patient who presents due to multiple abdominal complaints. She has had prior EGD with Dr. Clark. However, continues to have symptoms despite having her gallbladder removed and she is having some nausea as well as some decreased appetite as well. Risks, benefits, and alternatives regarding EGD consent all confirmed with her and reviewed. She was then brought back to the endoscopy suite. Laid in the left lateral decubitus position. Complete time-out performed. The scope gently introduced into the mouth, oropharynx, down into the esophagus and into the stomach pouch. Her esophagus had some distal inflammatory changes consistent with reflux esophagitis, possible some early Jacobo's disease posteriorly. Her stomach pouch appeared to be to me slightly larger than a standard 30 ounce pouch, but not much bigger than this and it was somewhat linear likely because the stomach is up in the chest due to the hiatal hernia. I am unable to really closely visualize the cardiac aspect of the stomach because I can't retroflex due to the gastric bypass surgery, but she does have immediately encountered inflammation throughout her stomach pouch as well as one small AVM that didn't appear to have any old blood or new blood on it. This was very tiny and looked like a small telangiectasia here, but she did have some old blood by the area of inflammation close to the anastomosis. Her anastomosis was widely patent. The candy cane limb looks normal. The jejunal limb looks normal. I do not see any ulcers here. The scope was then carefully withdrawn. I didn't find any other lesions. She does have some extra gastric folds likely consistent with her multiple surgeries, but I do not see any masses concerning for malignancy. As we withdraw the scope to the distal esophagus, I took multiple distal esophageal biopsies to rule out Jacobo's disease. These sites are hemostatic and then the scope was completely removed. The patient has an approximate 4 cm sliding type hiatal hernia.
== END 2019-03-14 14:30 | disposition home or self-care (01) ==
LOC: SDC 10:28
PROVIDERS: ATTEND Surgery
DX: K29.70 Gastritis, unspecified, without bleeding (principal); K44.9 Diaphragmatic hernia without obstruction or gangrene; K21.0 Gastro-esophageal reflux disease with esophagitis; Z98.84 Bariatric surgery status
CPT/HCPCS: J2704

== ENCOUNTER 2019-08-21 20:18 | Emergency (ER) | payer MEDICARE ==
--- NOTE | 2019-08-21 21:09 | ERPHSYRPT ---
- History of Present Illness Time Seen by Provider: 08/21/19 21:05 Source: patient, family Exam Limitations: no limitations Patient Subjective Stated Complaint: pt states that she was walking from the bathroom to dinning room and just fell, pt states she has a walker and is suppose to use it, pt states that she started new medication for seizures, pt states that medication makes her dizzy, pt states that she call MD and he advised she stop taking it, the new medication is lamtrigine 100 mg BID, pt states thursday was her last dose, pt states that left foot hurts Triage Nursing Assessment: pt was wheeled into the er, pt is axo x3, pt has laceration to rt eyebrow, laceration measures 2 cm x 0.5 cm, scant amout of blood present, pt is hypertensive, no deformities present to left foot, PERRL Physician History: pt got dizzy and fell which has been side effect of new med; no LOC but hit right roman catholic with small lac - neuro is intact ; tender neck and left foot; abd abd chest all nontender other ext nontender with full ROM; Occurred: just prior to arrival Reason for Fall: lost balance, became dizzy Injuries/Pain Location: head, face, neck, lower extremity (left foot) Loss of Consciousness: no loss of consciousness Severity of Pain-Max: mild Severity of Pain-Current: mild Modifying Factors: Improves With: nothing Associated Symptoms (Fall): denies symptoms Allergies/Adverse Reactions: duloxetine [From Cymbalta] Allergy (Intermediate, Verified 08/21/19 20:50) amitriptyline [From Elavil] Allergy (Verified 08/21/19 20:50) Home Medications: Dexlansoprazole [Dexilant] 60 mg PO DAILY 08/08/16 [History] Phenytoin Sod Extended 100 mg* [Dilantin 100 MG] 100 mg PO 5XD 08/08/16 [ History] Amlodipine Besylate 5 mg PO DAILY 01/09/18 [History] Metoprolol Succinate [Toprol Xl] 50 mg PO DAILY 01/09/18 [History] Albuterol 2 puffs IH Q4H PRN PRN 08/21/19 [History] Fexofenadine/Pseudoephedrine [Betina-D 12 Hour Tablet] 1 tab PO BID 08/21/19 [ History] Fluticasone/Salmeterol Disc [Advair 250-50 Diskus 14 Dose] 1 puff IH DAILY 08/21/19 [History] Teriparatide [Forteo] 600 mg SQ 08/21/19 [History] Tramadol HCl 50 mg [Ultram 50 mg] 50 mg PO BID 08/21/19 [History] lamoTRIgine [Lamotrigine] 100 mg PO DAILY 08/21/19 [History] Hx Tetanus, Diphtheria Vaccination/Date Given: No Hx Influenza Vaccination/Date Given: Yes Hx Pneumococcal Vaccination/Date Given: No - Review of Systems Constitutional: No Fever, No Chills Eyes: No Symptoms Ears, Nose, & Throat: No Symptoms Respiratory: No Cough, No Dyspnea Cardiac: No Chest Pain, No Edema, No Syncope Abdominal/Gastrointestinal: No Abdominal Pain, No Nausea, No Vomiting, No Diarrhea Genitourinary Symptoms: No Dysuria Musculoskeletal: Neck Pain, Fall, Injury, Joint Pain (left foot), No Back Pain Skin: No Rash Neurological: Dizziness (prior to fall), Headache, No Focal Weakness, No Sensory Changes Psychological: No Symptoms Endocrine: No Symptoms All Other Systems: Reviewed and Negative - Past Medical History Pertinent Past Medical History: Yes Neurological History: Seizures ENT History: Other Cardiac History: Hypertension Respiratory History: COPD Endocrine Medical History: No Pertinent History Musculoskeletal History: Arthritis, Fibromyalgia, Fractures, Osteoporosis GI Medical History: GERD, Other History: Other Psycho-Social History: Depression Female Reproductive Disorders: No Pertinent History Other Medical History: Partial seizures, liver disease - Past Surgical History Past Surgical History: Yes Neuro Surgical History: No Pertinent History Cardiac: No Pertinent History Respiratory: No Pertinent History Gastrointestinal: Cholecystectomy, Other Genitourinary: No Pertinent History Musculoskeletal: Joint Replacement, Orthopedic Surgery Female Surgical History: Tubal Ligation Other Surgical History: gastroplasty, right shoulder, bilateral hip/knee surgeries. LT ARM fx with hdwe, LT and RT FOOT with hdwe - Social History Smoking Status: Former smoker Exposure to second hand smoke: No Alcohol Use: None Drug Use: none Patient Lives Alone: No Significant Family History: heart disease, hypertension - Female History Hx Now: No - Nursing Vital Signs Nursing Vital Signs: Initial Vital Signs Temperature 97.8 F 08/21/19 20:35 Respiratory Rate 18 08/21/19 20:35 Blood Pressure 160/75 08/21/19 20:35 Pain Scale Pain Intensity 7 - [place] Com[place] Score Best Eye Response (Chey): (4) open spontaneously Best Verbal Response ([place]): (5) oriented Best Motor Response ([place]): (6) obeys commands [place] Total: 15 - Physical Exam General Appearance: no apparent distress, alert Head Injury: lacerations (right lateral above eye) Eye Exam: PERRL/EOMI ENT Exam: airway nml Neck Exam: normal inspection, pain on movement of neck, tenderness, tender lateral Respiratory/Chest Exam: normal breath sounds, No chest tenderness, No respiratory distress Cardiovascular Exam: normal heart sounds, regular rate/rhythm Gastrointestinal Exam: soft, No tenderness, No distention, No guarding, No ecchymosis Back Exam: normal inspection, No vertebral tenderness Extremity Exam: normal inspection, pelvis stable, joint swelling (left dorsal lateral foot), No deformities Peripheral Pulses: carotid (R): 2+, carotid (L): 2+, femoral (R): 2+, femoral (L ): 2+, dorsalis-pedis (R): 2+, dorsalis-pedis (L): 2+ Neurologic Exam: alert, oriented x 3, cooperative, maintenance apprentice 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 nml as tested, sensation nml, No motor deficits Skin Exam: normal color, warm, dry Procedures - Laceration/Wound Repair Right Frontal Wound Location: Right, forehead Wound Length (cm): 3 Wound's Depth, Shape: linear Wound Explored: no foreign body noted Irrigated: Yes (NS) Hibiclens Prep: No Anesthesia: local, 1% Lidocaine Volume Anesthetic (ccs): 2 Wound Debrided: minimal Wound Repaired With: sutures Suture Size/Type: 5-0, prolene Number of Sutures: 3 Layer Closure?: No Sterile Dressing Applied?: Yes Splint Applied?: No Sling Applied?: No - Course Nursing assessment & vital signs reviewed: Yes Ordered Tests: Active Orders 24 hr Category Date Time Status Sutures STAT Care 08/21/19 21:13 Active FOOT (MINIMUM 3 VIEWS) Stat Exams 08/21/19 21:10 Taken TROPONIN Q3H Lab 08/22/19 00:15 Ordered TROPONIN Q3H Lab 08/22/19 03:15 Ordered TROPONIN Q3H Lab 08/22/19 06:15 Ordered TROPONIN Q3H Lab 08/22/19 09:15 Ordered Medication Summary Discontinued Medications Generic Name Dose Route Start Last Admin Trade Name Jason PRN Reason Stop Dose Admin Diphtheria/Tetanus/Acell Pertussis 0.5 ml 08/21/19 21:13 08/21/19 22:02 Adacel Vial IM 08/21/19 21:14 0.5 ml .ONCE ONE Administration Diphtheria/Tetanus/Acell Pertussis Confirm 08/21/19 22:01 Adacel Vial Administered 08/21/19 22:02 Dose 0.5 ml IM .STK-MED ONE Sodium Chloride 1,000 mls @ 999 mls/hr 08/21/19 21:11 08/21/19 21:41 Sodium Chloride 0.9% 1000 Ml IV 08/21/19 22:11 Not Given .Q1H1M STA Lidocaine HCl Confirm 08/21/19 22:21 Xylocaine 1% Hcl 20 Ml Mdv Administered 08/21/19 22:22 Dose 1 ml .ROUTE .STK-MED ONE - Progress Progress: improved, re-examined Progress Note: 08/21/19 21:33 pt declines dizziness w/u at this time and iv and any trauma w/u except left foot or any CT scans after risk /benefit discussed and has a normal mental status with the capacity to make this choice; 08/21/19 21:35 I explained that we could not well exclude much of the concerning pathology which could both relate to her dizziness episodes and effects from her fall and head trauma; 08/21/19 21:48 Counseled pt/family regarding: lab results, diagnosis, need for follow-up, rad results - Departure Departure Disposition: Home Clinical Impression: Laceration, Concussion, Sprain Condition: Good Critical Care Time: No Referrals: JUDY WALDEN DO [Primary Care Provider] - Instructions: Concussion, Adult (DC), Closed Head Injury (DC), Laceration Repair With Stitches (DC), Sprain (DC) Additional Instructions: sutures can be removed in [address] return meantime if any concerns use walker; elevate foot when possible and use ice; there may be ligament injury or occult fracture in the foot as well ; see you dr if foot not improving next few days; Prescriptions: Mupirocin [Bactroban OINTMENT] 22 gm TP BID #1 tube
[2019-08-21] MEDS ORDERED: Sodium Chloride 0.9% 1000 ML 1,000 ML IV STA (21:11)
[2019-08-21] MEDS ORDERED: Adacel Vial IM ONE ×2 (21:13→22:01)
[2019-08-21] MEDS ORDERED: XYLOCAINE 1% HCL 20 ML MDV ONE (22:21)
[2019-08-21 23:13] VITALS: BP 145/78; PULSE 77; O2SAT 100
--- NOTE | 2019-08-22 08:55 | XRAY ---
Indication: Pain following fall. Comparison: None 3 nonweightbearing views of the left foot demonstrates osteopenia and minimally bridging 5th metatarsal proximal shaft fracture with intact fixation screw. No other bony, articular, or soft tissue abnormalities.
== END 2019-08-21 23:13 | disposition home or self-care (01) ==
LOC: ED 20:18
DX: S01.81XA Laceration without foreign body of other part of head, initial encounter (principal); S06.0X9A Concussion with loss of consciousness of unspecified duration, initial encounter; S93.602A Unspecified sprain of left foot, initial encounter; W19.XXXA Unspecified fall, initial encounter; Z79.899 Other long term (current) drug therapy; R42 Dizziness and giddiness; R51 Headache; M54.2 Cervicalgia; M79.672 Pain in left foot
CPT/HCPCS: 12013; 73630; 90471; 90715; 99284

== ENCOUNTER 2020-03-24 09:44 | Emergency (ER) | payer MEDICARE ==
[2020-03-24] MEDS ORDERED: MORPHINE SULFATE 4 MG INJ IV ONE ×2 (10:16→12:52)
[2020-03-24] MEDS ORDERED: Zofran 4 MG/2 ML VIAL IV ONE ×2 (10:16→12:52)
[2020-03-24] MEDS ORDERED: MORPHINE SULFATE 4 MG INJ ONE ×2 (10:27→12:57)
[2020-03-24] MEDS ORDERED: Zofran 4 MG/2 ML VIAL ONE ×2 (10:27→12:57)
[2020-03-24 10:52] VITALS: O2SAT 98
[2020-03-24] MEDS ORDERED: ZOFRAN ODT 4 MG ONE (10:57)
[2020-03-24] MEDS ORDERED: NORCO 5/325 MG ONE (10:58)
[2020-03-24] MEDS ORDERED: ZOFRAN ODT 4 MG PO ONE (11:11)
[2020-03-24] MEDS ORDERED: NORCO 5/325 MG PO ONE (11:11)
[2020-03-24 11:24] LABS: Absolute Neutrophil Ct (ANC) 4.53 (1.4-6.9); BASOPHIL % 0.2 % (0.0-0.4); Basophil (Absolute #) 0.01 (0-0.4); Eosinophil % 4.6 % (0.00-5.0); Eosinophil (Absolute #) 0.28 (0-0.5); Hematocrit 41.1 % (35-47); Hemoglobin 13.4 gm/dl (12.0-16.0); Lymphocyte (Absolute #) 0.77 (1.0-4.6); Lymphocytes % 12.8 % (24.0-44.0); Mean Cell Volume 95.1 fl (78-100); Mean Corpuscular Hgb Concent. 32.6 g/dl (32-36); Mean Platelet Volume 10.4 fl (7.5-11.0); Monocyte (Absolute #) 0.44 (0.0-1.3); Monocytes % 7.3 % (0.0-12.0); Neutrophil % 75.1 % (36.0-66.0); Platelet Count 175 K/mm3 (150-450); Red Blood Count 4.32 M/mm3 (4.1-5.4)
[2020-03-24 11:36] LABS: ALBUMIN 4.7 g/dL (3.5-5.0); ALKALINE PHOSPHATASE 87 U/L (38-126); ANION GAP 13.2 MEQ/L (5-15); BLOOD UREA NITROGEN 12 mg/dL (7-17); CHLORIDE 99 mmol/L (98-107); Carbon Dioxide 27 mmol/L (22-30); Creatinine 1 0.43 mg/dL (0.52-1.04); EST GLOMERULAR FILTRATION RATE > 60.0 ML/MIN; Glucose 105 mg/dL (74-106); Potassium 4.5 mmol/L (3.5-5.1); SGOT/AST 71 U/L (14-36); SGPT/ALT 50 U/L (0-35); SODIUM 135 mmol/L (137-145); Total Protein 7.9 g/dL (6.3-8.2)
[2020-03-24 11:47] LABS: Slide Review 1 YES
--- NOTE | 2020-03-24 12:11 | ERPHSYRPT ---
- History of Present Illness Time Seen by Provider: 03/24/20 10:06 Source: patient, EMS Exam Limitations: no limitations Patient Subjective Stated Complaint: Pt states "I fell last night around 10 pm and hit my head and back. My right upper back is killing me." Triage Nursing Assessment: Pt presented alert and oriented X 3, skin pwd Pt able to move all extremeties. Pt has hematoma noted to right buddhist area. Her right upper back is tender to touch, no bruising, no swelling noted. Physician History: 65 years old female with history of hypertension, hyperlipidemia COPD, issues with balance at her baseline presented in the ER with chief complaint of right posterior back/ chest pain after she had a ground-level fall when trying to grab her walker and her legs gave away yesterday. She hit her chest against the table edge and hit her head against the floor. No loss of consciousness. She has a small bruise on the right buddhist area. Denies any dizziness lightheadedness, nausea vomiting or diarrhea. No abdominal pain. Denies any palpitations or shortness of breath. Pain is moderate to severe intensity, sharp in nature, aggravated with minimal movements, deep breathing and better with being still. Occurred: yesterday Reason for Fall: lost balance Injuries/Pain Location: head, chest, back Loss of Consciousness: no loss of consciousness Quality: sharpness Severity of Pain-Max: moderate Severity of Pain-Current: moderate Modifying Factors: Improves With: movement Associated Symptoms (Fall): back pain, chest pain, headache, No abdominal pain, No confusion, No extremity injury, No muscle spasms, No neck pain, No shortness of breath, No slurred speech, No vision changes Allergies/Adverse Reactions: duloxetine [From Cymbalta] Allergy (Intermediate, Verified 08/21/19 20:50) amitriptyline [From Elavil] Allergy (Verified 08/21/19 20:50) Home Medications: Dexlansoprazole [Dexilant] 60 mg PO DAILY 08/08/16 [History] Phenytoin Sod Extended 100 mg* [Dilantin 100 MG] 100 mg PO 5XD 08/08/16 [History] Amlodipine Besylate 5 mg PO DAILY 01/09/18 [History] Metoprolol Succinate [Toprol Xl] 50 mg PO DAILY 01/09/18 [History] Albuterol 2 puffs IH Q4H PRN PRN 08/21/19 [History] Fexofenadine/Pseudoephedrine [Betina-D 12 Hour Tablet] 1 tab PO BID 08/21/19 [History] Fluticasone/Salmeterol Disc [Advair 250-50 Diskus 14 Dose] 1 puff IH DAILY 08/21/19 [History] Teriparatide [Forteo] 600 mg SQ DAILY 08/21/19 [History] Tramadol HCl 50 mg [Ultram 50 mg] 50 mg PO BID 08/21/19 [History] lamoTRIgine [Lamotrigine] 100 mg PO DAILY 08/21/19 [History] Hx Tetanus, Diphtheria Vaccination/Date Given: No Hx Influenza Vaccination/Date Given: Yes Hx Pneumococcal Vaccination/Date Given: No Immunizations Up to Date: Yes Travel Risk - International Travel Have you traveled outside of the country in past 3 weeks: No - Coronavirus Screening Are you exhibiting any of the following symptoms?: No Close contact with a COVID-19 positive Pt in past 14-21 Days: No - Review of Systems Constitutional: No Symptoms Eyes: No Symptoms Ears, Nose, & Throat: No Symptoms Respiratory: No Symptoms Abdominal/Gastrointestinal: No Symptoms Genitourinary Symptoms: No Symptoms Musculoskeletal: Back Pain, Injury Skin: No Symptoms Neurological: Headache Psychological: No Symptoms Endocrine: No Symptoms Hematologic/Lymphatic: No Symptoms Immunological/Allergic: No Symptoms - Past Medical History Pertinent Past Medical History: Yes Neurological History: Seizures ENT History: Other Cardiac History: Hypertension Respiratory History: COPD Endocrine Medical History: No Pertinent History Musculoskeletal History: Arthritis, Fibromyalgia, Fractures, Osteoporosis GI Medical History: GERD, Other History: Other Psycho-Social History: Depression Female Reproductive Disorders: No Pertinent History Other Medical History: Partial seizures, liver disease - Past Surgical History Past Surgical History: Yes Neuro Surgical History: No Pertinent History Cardiac: No Pertinent History Respiratory: No Pertinent History Gastrointestinal: Cholecystectomy, Other Genitourinary: No Pertinent History Musculoskeletal: Joint Replacement, Orthopedic Surgery Female Surgical History: Tubal Ligation Other Surgical History: gastroplasty, right shoulder, bilateral hip/knee surgeries. LT ARM fx with hdwe, LT and RT FOOT with hdwe - Social History Smoking Status: Former smoker Exposure to second hand smoke: No Alcohol Use: None Drug Use: none Patient Lives Alone: No Significant Family History: heart disease, hypertension - Female History Hx Now: No - Nursing Vital Signs Nursing Vital Signs: Initial Vital Signs Temperature 98.4 F 03/24/20 09:45 Pulse Rate 69 03/24/20 09:45 Respiratory Rate 20 03/24/20 09:45 Blood Pressure 157/67 03/24/20 09:45 O2 Sat by Pulse Oximetry 97 03/24/20 09:45 Pain Scale Pain Intensity [Right Back] 10 Pain Intensity 6 - [place] Coma Score Best Eye Response (Chey): (4) open spontaneously Best Verbal Response ([place]): (5) oriented Best Motor Response ([place]): (6) obeys commands [place] Total: 15 - Physical Exam General Appearance: no apparent distress, alert Head Injury: contusions (Nickel sized area in the right temporal area with bruising and contusion. No step in deformity.), tenderness, No raccoon eyes, No swelling Eye Exam: PERRL/EOMI, eyes nml inspection ENT Exam: airway nml, evidence of ENT injury, No dental injury Neck Exam: supple, trachea midline, full range of motion, normal alignment Respiratory/Chest Exam: chest tenderness (To lower posterior chest wall. 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 as tested, normal mood/affect, nml cerebellar function, sensation nml, No motor deficits Skin Exam: normal color SpO2 Interpretation: normal SpO2: 98 O2 Delivery: Room Air - Course EKG Interpreted by Me: RATE (60), Sinus Rhythm, NORMAL AXIS, NORMAL INTERVALS, NORMAL QRS Ordered Tests: Active Orders 24 hr Category Date Time Status Zapata [Catheter-Story Zapata] STAT Care 03/24/20 13:00 Completed IV Insertion STAT Care 03/24/20 10:16 Completed ABDOMEN AND PELVIS W/0 CONTRAS [CT] Stat Exams 03/24/20 13:22 Completed CERVICAL SPINE WO CONTRAST [CT] Stat Exams 03/24/20 11:33 Completed CHEST WITHOUT CONTRAST [CT] Stat Exams 03/24/20 11:33 Completed HEAD WITHOUT CONTRAST [CT] Stat Exams 03/24/20 11:29 Completed CBC W DIFF Stat Lab 03/24/20 10:15 Completed CMP Stat Lab 03/24/20 11:20 Completed TROPONIN Q3H Lab 03/24/20 10:15 Completed Medication Summary Discontinued Medications Generic Name Dose Route Start Last Admin Trade Name Mpq PRN Reason Stop Dose Admin Hydrocodone Bitart/Acetaminophen Confirm 03/24/20 10:58 [place] 5/325 Mg Administered 03/24/20 10:59 Dose 1 tab .ROUTE .STK-MED ONE Hydrocodone Bitart/Acetaminophen 1 tab 03/24/20 11:11 03/24/20 11:12 [place] 5/325 Mg PO 03/24/20 11:12 1 tab STAT ONE Administration Sodium Chloride 1,000 mls @ 125 mls/hr 03/24/20 13:00 03/24/20 13:01 Sodium Chloride 0.9% 1000 Ml IV 04/23/20 12:59 125 mls/hr .Q8H PASCUAL Administration Sodium Chloride Confirm 03/24/20 12:57 Sodium Chloride 0.9% 1000 Ml Administered 03/24/20 12:58 Dose 1,000 mls @ ud .ROUTE .STK-MED ONE Morphine Sulfate 4 mg 03/24/20 10:16 03/24/20 10:54 Morphine Sulfate 4 Mg Inj IV 03/24/20 10:17 Not Given STAT ONE Morphine Sulfate Confirm 03/24/20 10:27 Morphine Sulfate 4 Mg Inj Administered 03/24/20 10:28 Dose 4 mg .ROUTE .STK-MED ONE Morphine Sulfate 4 mg 03/24/20 12:52 03/24/20 13:01 Morphine Sulfate 4 Mg Inj IV 03/24/20 12:53 4 mg STAT ONE Administration Morphine Sulfate Confirm 03/24/20 12:57 Morphine Sulfate 4 Mg Inj Administered 03/24/20 12:58 Dose 4 mg .ROUTE .STK-MED ONE Ondansetron HCl 4 mg 03/24/20 10:16 03/24/20 10:54 Zofran 4 Mg/2 Ml Vial IV 03/24/20 10:17 Not Given STAT ONE Ondansetron HCl Confirm 03/24/20 10:27 Zofran 4 Mg/2 Ml Vial Administered 03/24/20 10:28 Dose 4 mg .ROUTE .STK-MED ONE Ondansetron HCl Confirm 03/24/20 10:57 Zofran Odt 4 Mg Administered 03/24/20 10:58 Dose 4 mg .ROUTE .STK-MED ONE Ondansetron HCl 4 mg 03/24/20 11:11 03/24/20 11:12 Zofran Odt 4 Mg PO 03/24/20 11:12 4 mg STAT ONE Administration Ondansetron HCl 4 mg 03/24/20 12:52 03/24/20 13:01 Zofran 4 Mg/2 Ml Vial IV 03/24/20 12:53 4 mg STAT ONE Administration Ondansetron HCl Confirm 03/24/20 12:57 Zofran 4 Mg/2 Ml Vial Administered 03/24/20 12:58 Dose 4 mg .ROUTE .STK-MED ONE Lab/Rad Data: Laboratory Result Diagrams 03/24/20 10:15 03/24/20 11:20 Laboratory Results 03/24/20 03/24/20 03/24/20 Range/Units 11:20 10:15 10:15 WBC 6.0 (4.0-10.5) K/mm3 RBC 4.32 (4.1-5.4) M/mm3 Hgb 13.4 (12.0-16.0) gm/dl Hct 41.1 (35-47) % MCV 95.1 (78-100) fl MCH 31.0 (26-32) pg MCHC 32.6 (32-36) g/dl RDW 13.0 (11.5-14.0) % Plt Count 175 (150-450) K/mm3 MPV 10.4 (7.5-11.0) fl Gran % 75.1 H (36.0-66.0) % Eos # (Auto) 0.28 (0-0.5) Absolute Lymphs (auto) 0.77 L (1.0-4.6) Absolute Monos (auto) 0.44 (0.0-1.3) Lymphocytes % 12.8 L (24.0-44.0) % Monocytes % 7.3 (0.0-12.0) % Eosinophils % 4.6 (0.00-5.0) % Basophils % 0.2 (0.0-0.4) % Absolute Granulocytes 4.53 (1.4-6.9) Basophils # 0.01 (0-0.4) Sodium 135 L (137-145) mmol/L Potassium 4.5 (3.5-5.1) mmol/L Chloride 99 (98-107) mmol/L Carbon Dioxide 27 (22-30) mmol/L Anion Gap 13.2 (5-15) MEQ/L BUN 12 (7-17) mg/dL Creatinine 0.43 L (0.52-1.04) mg/dL Estimated GFR > 60.0 ML/MIN Glucose 105 (74-106) mg/dL Calcium 10.0 (8.4-10.2) mg/dL Total Bilirubin 0.50 (0.2-1.3) mg/dL AST 71 H (14-36) U/L ALT 50 H (0-35) U/L Alkaline Phosphatase 87 (38-126) U/L Troponin I < 0.012 (0.000-0.034) ng/mL Serum Total Protein 7.9 (6.3-8.2) g/dL Albumin 4.7 (3.5-5.0) g/dL Slides for Path Review YES - Progress Progress: improved, pain not gone completely, re-examined Progress Note: 03/24/20 12:19 65 years old is evaluated for ground-level fall with hitting her chest/back against a table and hitting her head against the ground with no loss of consciousness. She has remarkable tenderness in the right posterior chest and some in the spine. She is given symptomatic treatment for pain. She is maint aining oxygen saturation at room air around 95%. Not in any distress. Stable vitals. Nonfocal neuro exam. I have obtained CT head which showed 10 x 6 mm area of hyper attenuation in left frontal lobe worrisome for intraparenchymal hemorrhage. CT cervical spine is negative. CT chest showed nondisplaced fracture of right L1 and L2 transverse process and also displaced fractures of right posterior ninth/10th/11th/12th rib. Patient is feeling better on reevaluation. . Discussed with Carlton Haines at [facility], patient is not accepted because [facility] is on diversion because of lack of ICU beds. [facility] is called, discussed with Dr. Betancur and patient is accepted for transfer. Patient agrees with plan. Discussed with .: Other Will see patient in: ED Counseled pt/family regarding: lab results, diagnosis, rad results - Departure Departure Disposition: Transfer Clinical Impression: Intracranial bleed, Multiple rib fractures involving four or more ribs Lumbar transverse process fracture Qualifiers: Encounter type: initial encounter Fracture type: closed Qualified Code(s): S32.009A - Unspecified fracture of unspecified lumbar vertebra, initial encounter for closed fracture Fall Qualifiers: Encounter type: initial encounter Qualified Code(s): W19.XXXA - Unspecified fall, initial encounter Condition: Fair Critical Care Time: Yes Critical Care Time(excluding separately billable procedures): Critical 75-104 mins Referrals: JUDY WALDEN DO [Primary Care Provider] -
[2020-03-24] MEDS ORDERED: Sodium Chloride 0.9% 1000 ML 1,000 ML ONE (12:57)
[2020-03-24 13:00] VITALS: BP 161/78; PULSE 65
[2020-03-24] MEDS ORDERED: Sodium Chloride 0.9% 1000 ML 1,000 ML IV SCH (13:00)
--- NOTE | 2020-03-24 17:52 | XRAY ---
Indication: Right frontal/temporal pain and abrasion following fall. Multiple contiguous axial images obtained through the head without contrast. Comparison: None. Age-appropriate global atrophy. Query subcentimeter focus of subtle subcortical hyperattenuation in the left frontal lobe, possible parenchymal contusion/hemorrhage. No abnormal extra-axial fluid collection or mass effect. Fourth ventricle is midline without hydrocephalus. [place]-white matter differentiation preserved. Tiny left frontal scalp soft tissue swelling/hematoma. Bony calvarium intact. Paranasal sinuses and mastoid air cells are clear. Impression: Tiny left frontal scalp soft tissue swelling/hematoma. Query underlying subcentimeter left frontal lobe contusion/hemorrhage. Comment: Preliminary interpretation was made by [facility]. No critical discrepancy.
--- NOTE | 2020-03-24 17:54 | XRAY ---
Indication: Neck pain following fall. Multiple contiguous axial images obtained through the cervical spine. Sagittal and coronal reformatted images obtained. Comparison: None. Axial images negative for acute fracture, suspicious bony lesions, or spinal canal stenosis. Minimal C3-C4 and C5-C6 endplate spurring. Mild/moderate multilevel bilateral degenerative facet hypertrophy. Sagittal and coronal reformatted images demonstrates normal alignment with minimal C3-C4 disc space narrowing. No acute compression fracture, subluxation, or jumped facet. Normal appearing craniocervical junction. Visualized noncontrasted soft tissues demonstrates moderate bilateral carotid calcifications. CT head and CT chest reported separately. Impression: 1. Negative acute fracture/subluxation. 2. Incidental multilevel degenerative changes and bilateral carotid calcifications. Comment: Preliminary interpretation was made by [facility]. No critical discrepancy.
--- NOTE | 2020-03-24 17:58 | XRAY ---
Indication: Right posterior rib pain following fall. Multiple contiguous axial images obtained through the chest without contrast as ordered. Comparison: August 11, 2016. Osseous structures remain demineralized with mild degenerative changes throughout the spine and old proximal left humerus fracture. There are mildly displaced fractures of the posterior right 9-12 ribs with small hemothorax. Remaining lungs are hyperinflated with minimal left base dependent atelectasis. No suspicious pulmonary mass, infiltrates, or pneumothorax. Heart is not enlarged. Aorta remains mildly atherosclerotic without aneurysmal dilatation. Stable right hilar calcified node. No pathologic mediastinal lymphadenopathy. Stable small hiatal hernia. CT abdomen/pelvis reported separately. Impression: 1. New right posterior 9-12 rib fractures with hemothorax. 2. Stable hiatal hernia, chronic bony findings, and old granulomatous disease. Comment: Preliminary interpretation was made by [facility]. No critical discrepancy.
--- NOTE | 2020-03-24 18:05 | XRAY ---
Indication: Right posterior rib pain following fall. Multiple contiguous axial images obtained through the abdomen and pelvis without contrast as ordered. Comparison: March 01, 2019. CT chest reported separately. Again gastric bypass surgery, cholecystectomy, and hysterectomy. Noncontrasted stomach and bowel loops appear nonobstructed. Interval worsening moderate diffuse fecal debris throughout again greatest in the transverse colon. No free fluid/air. New Zapata catheter drains the urinary bladder. Remaining liver, pancreas, spleen, adrenal glands, kidneys, ureters, and bladder appear unremarkable for noncontrast exam. Stable moderate aortoiliac calcifications without AAA. Osseous structures again demonstrates osteopenia, mild degenerative changes throughout the spine, mild dextroscoliosis, and old bilateral proximal femur fractures. New finding for old right L1 and L2 transverse process fractures. Impression: 1. Worsening fecal stasis. 2. New findings for old right L1/L2 transverse process fractures and Zapata catheter in situ. 3. Remaining CT abdomen/pelvis without contrast exam is negative. Comment: Preliminary interpretation was made by [facility]. No critical discrepancy.
== END 2020-03-24 13:50 | disposition short-term general hospital (02) ==
LOC: ED 09:44
DX: S32.009A Unspecified fracture of unspecified lumbar vertebra, initial encounter for closed fracture (principal); I62.9 Nontraumatic intracranial hemorrhage, unspecified; S22.41XA Multiple fractures of ribs, right side, initial encounter for closed fracture; I10 Essential (primary) hypertension; E78.5 Hyperlipidemia, unspecified; J44.9 Chronic obstructive pulmonary disease, unspecified; W01.190A Fall on same level from slipping, tripping and stumbling with subsequent striking against furniture, initial encounter; M54.9 Dorsalgia, unspecified; R07.9 Chest pain, unspecified; R51 Headache; Z79.899 Other long term (current) drug therapy
CPT/HCPCS: 36000; 36415; 70450; 71250; 72125; 74176; 80053; 84484; 85025; 96374; 96375; 99285; J2270; J2405; Q0162; A9270-GY

== ENCOUNTER 2020-07-24 08:02 | Day surgery (SDC) | payer MEDICARE ==
[~2020-07-24 08:02] MED LIST changes: +Ak-Dilate OPHTHALMIC*** 1.065 ML, Cyclogyl 1% OPHTH SOL 5 ML 1.065 ML, GATIFLOXACIN 0.5... OP ONE; +BETADINE 5% OPHTHALMIC 30 ML OP ONE; +Lactated Ringers 1,000 ML IV ONE; +Lactated Ringers 1,000 ML IV SCH; +NON-FORMULARY ITEM OP ONE; -Sodium Chloride 0.9% 1000 ML 1,000 ML ONE; +TETRACAINE 0.5% STERI-UNIT SOL OP ONE; +cefUROXime sodium 0.005 GM in Sodium Chloride Flush 30 ML*** 0.5 ML IJ SCH
[2020-07-24] MEDS ORDERED: Epinephrine Preservative Free 1 MG/ML INTRAOP ONE (09:00)
[2020-07-24] MEDS ORDERED: LIDOCAINE HCL 1% 50 MG/5 ML VL PF IJ ONE (09:00)
[2020-07-24] MEDS ORDERED: Zofran 4 MG/2 ML VIAL IV PRN (09:00)
[2020-07-24] MEDS ORDERED: ACETAZOLAMIDE 250 MG TABLET PO ONE (09:00)
[2020-07-24] MEDS ORDERED: DIPRIVAN 200 MG/20 ML IV ONE (10:43)
[2020-07-24 11:54] VITALS: BP 144/85; PULSE 81; O2SAT 99
== END 2020-07-24 12:00 | disposition home or self-care (01) ==
LOC: SDC 08:02
PROVIDERS: ATTEND Ophthalmology
DX: H25.811 Combined forms of age-related cataract, right eye (principal); J44.9 Chronic obstructive pulmonary disease, unspecified; Z79.899 Other long term (current) drug therapy; R56.9 Unspecified convulsions; M79.7 Fibromyalgia
CPT/HCPCS: C1780; J0171; J2001; J2704; A9270-GY

== ENCOUNTER 2020-09-18 07:52 | Day surgery (SDC) | payer MEDICARE ==
[2020-09-18] MEDS ORDERED: Lactated Ringers 1,000 ML IV ONE (08:11)
[2020-09-18] MEDS ORDERED: NON-FORMULARY ITEM OP ONE (08:30)
[2020-09-18] MEDS ORDERED: TETRACAINE 0.5% STERI-UNIT SOL OP ONE ×2 (08:30)
[2020-09-18] MEDS ORDERED: Lactated Ringers 1,000 ML IV SCH (08:30)
[2020-09-18] MEDS ORDERED: BETADINE 5% OPHTHALMIC 30 ML OP ONE (08:30)
[2020-09-18] MEDS ORDERED: cefUROXime sodium 0.005 GM in Sodium Chloride Flush 30 ML*** 0.5 ML IJ SCH (08:30)
[2020-09-18] MEDS ORDERED: Ak-Dilate OPHTHALMIC*** 1.065 ML, Cyclogyl 1% OPHTH SOL 5 ML 1.065 ML, GATIFLOXACIN 0.5... OP ONE ×4 (08:30)
[2020-09-18] MEDS ORDERED: ROBINUL ONE (09:24)
[2020-09-18] MEDS ORDERED: DIPRIVAN 200 MG/20 ML IV ONE (09:24)
[2020-09-18] MEDS ORDERED: ACETAZOLAMIDE 250 MG TABLET PO ONE ×2 (09:30→13:00)
[2020-09-18] MEDS ORDERED: Zofran 4 MG/2 ML VIAL IV PRN ×2 (09:30→13:00)
[2020-09-18] MEDS ORDERED: Epinephrine Preservative Free 1 MG/ML INTRAOP ONE (10:00)
[2020-09-18] MEDS ORDERED: LIDOCAINE HCL 1% 50 MG/5 ML VL PF IJ ONE (10:00)
[2020-09-18 11:19] VITALS: O2SAT 97
[2020-09-18 11:34] VITALS: BP 134/88; PULSE 70
== END 2020-09-18 11:30 | disposition home or self-care (01) ==
LOC: SDC 07:52
PROVIDERS: ATTEND Ophthalmology
DX: H25.812 Combined forms of age-related cataract, left eye (principal)
CPT/HCPCS: C1780; J0171; J2001; J2704; A9270-GY

== ENCOUNTER 2020-12-19 15:53 | Day surgery (SDC) | payer MEDICARE ==
[2012-06-12 17:07] VITALS: BP 142/81
[2020-12-19] MEDS ORDERED: Xylocaine 1% Vial 30 ML PF IJ ONE (15:54)
[2020-12-19] MEDS ORDERED: Decadron 4 MG INJ IV ONE (15:54)
[2020-12-19] MEDS ORDERED: Sodium Chloride 0.9(Preservative Free) 10 ML IJ ONE (15:54)
[2020-12-19] MEDS ORDERED: Lactated Ringers 1,000 ML IV ONE (16:07)
--- NOTE | 2020-12-19 18:53 | XRAY ---
Indication: Cervical JAIME. Intraoperative fluoroscopy provided for 35 seconds. Single digital spot image submitted for interpretation demonstrates posterior needle tip projecting cervical thoracic junction. Small amount of contrast injected for needle tip placement. Correlate with intraoperative findings/report.
--- NOTE | 2020-12-20 10:13 | XRAY ---
35 seconds of fluoroscopy was used in surgery for a cervical JAIME.
== END 2020-12-19 18:04 | disposition home or self-care (01) ==
LOC: SDC-PAIN 15:53
PROVIDERS: ATTEND Psychiatry & Neurology Pain Medicine
DX: M54.12 Radiculopathy, cervical region (principal); F41.9 Anxiety disorder, unspecified; F32.9 Major depressive disorder, single episode, unspecified; I10 Essential (primary) hypertension; J44.9 Chronic obstructive pulmonary disease, unspecified; Z79.899 Other long term (current) drug therapy
CPT/HCPCS: 62321; 72040; 77003; J1100; J2001; Q9966

== ENCOUNTER 2021-01-23 14:48 | Day surgery (SDC) | payer MEDICARE ==
[2012-06-12 17:07] VITALS: BP 142/81
[2021-01-23] MEDS ORDERED: Decadron 4 MG INJ IV ONE (14:49)
[2021-01-23] MEDS ORDERED: LIDOCAINE HCL 2% 100 MG/5 ML IJ ONE (14:49)
[2021-01-23] MEDS ORDERED: DIPRIVAN 200 MG/20 ML IV ONE (15:56)
[2021-01-23] MEDS ORDERED: Lactated Ringers 1,000 ML IV ONE (15:57)
--- NOTE | 2021-01-23 16:54 | XRAY ---
27 seconds fluoroscopy time in surgery for left C2-C5 MBB.
--- NOTE | 2021-01-23 17:00 | XRAY ---
Indication: Left C2-C5 MBB. Intraoperative fluoroscopy provided for 27 seconds. 2 digital spot image submitted for interpretation demonstrates posterior needle tips projecting over the expected left C2-C5 nerve roots. Correlate with intraoperative findings/report.
== END 2021-01-23 16:40 | disposition home or self-care (01) ==
LOC: SDC-PAIN 14:48
PROVIDERS: ATTEND Psychiatry & Neurology Pain Medicine
DX: M47.812 Spondylosis without myelopathy or radiculopathy, cervical region (principal); Z79.899 Other long term (current) drug therapy
CPT/HCPCS: 64490; 64491; 64492; 72040; 77002; J1100; J2704

== ENCOUNTER 2021-03-27 14:46 | Day surgery (SDC) | payer MEDICARE ==
[2012-06-12 17:07] VITALS: BP 142/81
[2021-03-27] MEDS ORDERED: Decadron 4 MG INJ IJ ONE (14:47)
[2021-03-27] MEDS ORDERED: BUPIVACAINE 0.5% VIAL IJ ONE (14:47)
[2021-03-27] MEDS ORDERED: DIPRIVAN 200 MG/20 ML IV ONE (16:15)
[2021-03-27] MEDS ORDERED: Lactated Ringers 1,000 ML IV ONE (16:18)
--- NOTE | 2021-03-28 11:20 | XRAY ---
28 seconds fluoroscopy time in surgery for left C2-C5 MBB.
--- NOTE | 2021-03-30 23:13 | XRAY ---
Indication: Left C2-C3, C3-C4, and C4-C5 MBB. Intraoperative fluoroscopy was provided for 28 seconds. 2 digital spot images submitted for interpretation demonstrate posterior needle tips projected over the expected left C2-C5 nerve roots. Correlate with intraoperative findings/report.
== END 2021-03-27 16:45 | disposition home or self-care (01) ==
LOC: SDC-PAIN 14:46
PROVIDERS: ATTEND Psychiatry & Neurology Pain Medicine
DX: M47.812 Spondylosis without myelopathy or radiculopathy, cervical region (principal); Z79.899 Other long term (current) drug therapy
CPT/HCPCS: 64490; 64491; 64492; 72040; 77002; J1100; J2704

== ENCOUNTER 2021-04-24 14:45 | Day surgery (SDC) | payer MEDICARE ==
[2012-06-12 17:07] VITALS: BP 142/81
[2021-04-24] MEDS ORDERED: LIDOCAINE HCL 2% 100 MG/5 ML IJ ONE (14:46)
[2021-04-24] MEDS ORDERED: Decadron 4 MG INJ IV ONE (14:46)
[2021-04-24] MEDS ORDERED: Lactated Ringers 1,000 ML IV ONE (16:32)
[2021-04-24] MEDS ORDERED: DIPRIVAN 200 MG/20 ML IV ONE (16:44)
--- NOTE | 2021-04-24 20:39 | XRAY ---
Indication: Right C2-C5 MBB. Intraoperative fluoroscopy provided for 17 seconds. 2 digital spot images submitted for interpretation demonstrate posterior needle tips projecting over the expected right C2-C5 nerve roots. Correlate with intraoperative findings/report.
--- NOTE | 2021-04-25 14:59 | XRAY ---
17 seconds of fluoroscopy was used in surgery for a right C2-C5 MBB.
== END 2021-04-24 17:10 | disposition home or self-care (01) ==
LOC: SDC-PAIN 14:45
PROVIDERS: ATTEND Psychiatry & Neurology Pain Medicine
DX: M47.812 Spondylosis without myelopathy or radiculopathy, cervical region (principal); Z79.899 Other long term (current) drug therapy
CPT/HCPCS: 64490; 64491; 64492; 72040; 77002; J1100; J2704

== ENCOUNTER 2022-08-08 12:19 | Observation (INO) | payer MEDICARE ==
--- NOTE | 2022-08-08 13:13 | ERPHSYRPT ---
- History of Present Illness Time Seen by Provider: 08/08/22 13:07 Historian: patient, family, EMS Exam Limitations: no limitations Patient Subjective Stated Complaint: C/O chest pain and SOB that started approx one hour prior to arriving to the ER. Patient indicates she was exerting herself at home doing household things and washing her hair when she suddenly got dizzy, broke out into a sweat, became SOB, and started having chest pain. Triage Nursing Assessment: Patient arrived by ambulance. She was wearing 02 @ 2L per N/C upon arrival with labored breathing noted. 02 sats 87% on the 2 L while patient was speaking with nurse but would increase to 97% when patient was silent and focusing on her breathing. Patient's 02 increased to 4L while she was speaking with staff to do initial assessment. NO cough noted. Lungs clear with right lower lobe slightly diminished and slight wheezing noted with expiration to left upper lobe. She is alert and oriented and answering questions appropriately. Edema noted to BLE with left a little worse that the right. Physician History: Independent interviews with pt, EMS and family confirm Hx: Pt developed CP today with dizziness and new O2 requirement. Had aching all over yesterday. No fever, cough or exposures to anyone sick known. Diaphoretic [employer], Took NTG at home partial relief and again by EMS partial relief, given [facility] today. PMHx of fibromyalgia but this was different. Denies any prior cardiac Hx. CHest clear, Neuro without deficits. Fund benign. Abd soft nontender without peritoneal signs or masses. Ext without edema. No rash. Ordered CBC, CMP, Trops EKG, Covid/Flu/RSV, CXR BNP, D DImer, reviewed results and discussed with pt and family. Timing/Duration: today Activities at Onset: activity (washing hair) Quality: burning, fullness, pressure Location: substernal, central Chest Pain Radiation: no radiation Severity of Pain-Max: moderate Severity of Pain-Current: moderate Modifying Factors: Improves With: nitroglycerin, oxygen Associated Symptoms: heartburn, shortness of breath, dizziness Prior Chest Pain/Cardiac Workup: no prior chest pain Nitro Today/Relief: 0.4 mg x 2, provided by EMS, provided at home, mild relief Aspirin Treatment Today: 81 mg x 4, provided by EMS Allergies/Adverse Reactions: amitriptyline [From Elavil] Allergy (Severe, Verified 08/08/22 12:25) aggitation/angry duloxetine [From Cymbalta] Allergy (Severe, Verified 08/08/22 12:25) Nausea and Vomiting Home Medications: Dexlansoprazole [Dexilant] 60 mg PO DAILY 08/08/16 [History] Metoprolol Succinate [Toprol Xl] 25 mg PO DAILY 01/09/18 [History] Albuterol 2 puffs IH Q4H PRN PRN 08/21/19 [History] Fexofenadine/Pseudoephedrine [Betina-D 12 Hour Tablet] 1 tab PO BID 08/21/19 [History] Tramadol HCl 50 mg [Ultram 50 mg] 50 mg PO TID 08/21/19 [History] Escitalopram Oxalate [Lexapro] 10 mg PO DAILY 07/17/20 [History] Meloxicam 1 tab PO DAILY 07/17/20 [History] Hx Tetanus, Diphtheria Vaccination/Date Given: Yes Hx Influenza Vaccination/Date Given: Yes Hx Pneumococcal Vaccination/Date Given: No Immunizations Up to Date: Yes Travel Risk - International Travel Have you traveled outside of the country in past 3 weeks: No - Coronavirus Screening Are you exhibiting any of the following symptoms?: Yes Symptoms: Shortness of Breath Close contact with a COVID-19 positive Pt in past 14-21 Days: No - Vaccine Status Have you recieved a Covid-19 vaccination: No - Review of Systems Constitutional: No Fever, No Chills Eyes: No Symptoms Ears, Nose, & Throat: No Symptoms Respiratory: Dyspnea, No Cough Cardiac: Chest Pain, No Edema, No Syncope Abdominal/Gastrointestinal: No Abdominal Pain, No Nausea, No Vomiting, No Diarrhea Genitourinary Symptoms: No Dysuria Musculoskeletal: No Back Pain, No Neck Pain Skin: No Rash Neurological: Dizziness, No Focal Weakness, No Sensory Changes Psychological: No Symptoms Endocrine: No Symptoms Hematologic/Lymphatic: No Symptoms Immunological/Allergic: No Symptoms All Other Systems: Reviewed and Negative - Past Medical History Pertinent Past Medical History: Yes Neurological History: Seizures ENT History: Cataracts, Macular Degeneration, Other Cardiac History: Hypertension Respiratory History: COPD Endocrine Medical History: No Pertinent History, Liver Disease Musculoskeletal History: Arthritis, Fibromyalgia, Fractures, Osteoporosis GI Medical History: GERD, Gallbladder Disease, Other History: Other Psycho-Social History: Depression Female Reproductive Disorders: No Pertinent History Other Medical History: Partial seizures, Brain bleed from fall on march - Past Surgical History Past Surgical History: Yes Neuro Surgical History: No Pertinent History Cardiac: No Pertinent History Respiratory: No Pertinent History Gastrointestinal: Cholecystectomy, Other Genitourinary: No Pertinent History Musculoskeletal: Joint Replacement, Orthopedic Surgery Female Surgical History: Tubal Ligation Other Surgical History: gastroplasty, right shoulder, bilateral hip/knee surgeries, colonoscopy, LT and RT FOOT - Social History Smoking Status: Former smoker Exposure to second hand smoke: No Alcohol Use: None Drug Use: none Patient Lives Alone: No Significant Family History: heart disease, hypertension - Nursing Vital Signs Nursing Vital Signs: Initial Vital Signs Temperature 97.3 F 08/08/22 12:28 Pulse Rate 85 08/08/22 12:28 Respiratory Rate 14 08/08/22 12:28 Blood Pressure 113/56 08/08/22 12:28 O2 Sat by Pulse Oximetry 98 08/08/22 12:28 Pain Scale Pain Intensity 0 - Physical Exam General Appearance: no apparent distress, alert Eye Exam: PERRL/EOMI, eyes nml inspection Ears, Nose, Throat Exam: normal ENT inspection, moist mucous membranes Neck Exam: normal inspection, non-tender, supple, full range of motion Respiratory Exam: normal breath sounds, lungs clear, No respiratory distress Cardiovascular Exam: regular rate/rhythm, normal heart sounds, normal peripheral pulses Gastrointestinal/Abdomen Exam: soft, No tenderness, No mass Pelvic Exam: deferred Rectal Exam: deferred Back Exam: normal inspection, No CVA tenderness, No vertebral tenderness Extremity Exam: normal inspection, normal range of motion Neurologic Exam: alert, oriented x 3, cooperative, normal mood/affect, sensation nml, No motor deficits Skin Exam: normal color, warm, dry SpO2 Interpretation: hypoxic SpO2: 98 O2 Delivery: Nasal Cannula - Course Nursing assessment & vital signs reviewed: Yes EKG Interpreted by Me: Sinus Rhythm, NORMAL AXIS, NORMAL INTERVALS, NORMAL QRS, NORMAL ST-T - Radiology Exams Chest X-ray Interpretation: Reviewed by me, Discussed w/ radiologist, No Infiltrates, Other (chronic per radiology reading) Ordered Tests: Active Orders 24 hr Category Date Time Status EKG-ER Only STAT Care 08/08/22 13:17 Active IV Insertion STAT Care 08/08/22 13:17 Active CHEST 1 VIEW (PORTABLE) Stat Exams 08/08/22 13:18 Completed AMYLASE Stat Lab 08/08/22 13:45 Completed CBC W DIFF Stat Lab 08/08/22 13:45 Completed CMP Stat Lab 08/08/22 13:45 Completed D-DIMER QUANTITATIVE Stat Lab 08/08/22 13:45 Completed LIPASE Stat Lab 08/08/22 13:45 Completed Lactic Acid Stat Lab 08/08/22 13:39 Completed NT PRO BNP Stat Lab 08/08/22 13:45 Completed TROPONIN Q4H Lab 08/08/22 13:45 Completed TROPONIN Q4H Lab 08/08/22 15:15 Received TROPONIN Q4H Lab 08/08/22 21:30 Ordered UA W/RFX UR CULTURE Stat Lab 08/08/22 15:05 Completed Medication Summary Generic Name Dose Route Start Last Admin Trade Name Freq PRN Reason Stop Dose Admin Sodium Chloride 1,000 mls @ 100 mls/hr 08/08/22 13:30 08/08/22 13:39 Sodium Chloride 0.9% 1000 Ml IV 09/07/22 13:29 100 mls/hr .Q10H PASCUAL Administration Discontinued Medications Generic Name Dose Route Start Last Admin Trade Name Freq PRN Reason Stop Dose Admin Diphenhydramine HCl 25 mg 08/08/22 13:17 08/08/22 13:41 Diphenhydramine Hcl 50 Mg/Ml Vial IV 08/08/22 13:18 25 mg STAT ONE Administration Diphenhydramine HCl Confirm 08/08/22 13:38 Diphenhydramine Hcl 50 Mg/Ml Vial Administered 08/08/22 13:39 Dose 50 mg .ROUTE .STK-MED ONE Famotidine 20 mg 08/08/22 13:17 08/08/22 13:41 Famotidine 20 Mg/1 Vial IV 08/08/22 13:18 20 mg STAT ONE Administration Famotidine Confirm 08/08/22 13:38 Famotidine 20 Mg/1 Vial Administered 08/08/22 13:39 Dose 20 mg IV .STK-MED ONE Morphine Sulfate 4 mg 08/08/22 13:17 08/08/22 13:41 Morphine Sulfate 4 Mg/Ml Injection IV 08/08/22 13:18 4 mg STAT ONE Administration Morphine Sulfate Confirm 08/08/22 13:38 Morphine Sulfate 4 Mg/Ml Injection Administered 08/08/22 13:39 Dose 4 mg .ROUTE .STK-MED ONE Ondansetron HCl 4 mg 08/08/22 13:17 08/08/22 13:41 Ondansetron Hcl 4 Mg/2 Ml Vial IV 08/08/22 13:18 4 mg STAT ONE Administration Ondansetron HCl Confirm 08/08/22 13:38 Ondansetron Hcl 4 Mg/2 Ml Vial Administered 08/08/22 13:39 Dose 4 mg .ROUTE .STK-MED ONE Ondansetron HCl 4 mg 08/08/22 16:34 08/08/22 17:08 Ondansetron Hcl 4 Mg/2 Ml Vial IV 08/08/22 16:35 4 mg STAT ONE Administration Ondansetron HCl Confirm 08/08/22 17:07 Ondansetron Hcl 4 Mg/2 Ml Vial Administered 08/08/22 17:08 Dose 4 mg .ROUTE .STK-MED ONE Lab/Rad Data: Laboratory Result Diagrams 08/08/22 13:45 08/08/22 13:45 Laboratory Results 08/08/22 08/08/22 08/08/22 Range/Units 15:05 14:07 13:45 WBC (4.0-10.5) x10^3/uL RBC (4.1-5.4) x10^6/uL Hgb (12.0-16.0) g/dL Hct (35-47) % MCV (78-100) fL MCH (26-32) pg MCHC (32-36) g/dL RDW (11.5-14.0) % Plt Count (150-450) x10^3/uL MPV (7.5-11.0) fL Gran % (36.0-66.0) % Immature Gran % (Auto) (0.00-0.4) % Nucleat RBC Rel Count (0.00-0.1) % Eos # (Auto) (0-0.5) x10^3/uL Immature Gran # (Auto) (0.00-0.03) x10^3u/L Absolute Lymphs (auto) (1.0-4.6) x10^3/uL Absolute Monos (auto) (0.0-1.3) x10^3/uL Absolute Nucleated RBC (0.00-0.01) x10^3u/L Lymphocytes % (24.0-44.0) % Monocytes % (0.0-12.0) % Eosinophils % (0.00-5.0) % Basophils % (0.0-0.4) % Absolute Granulocytes (1.4-6.9) x10^3/uL Basophils # (0-0.4) x10^3/uL D-Dimer 0.29 (0.0-0.50) mg/L Sodium (137-145) mmol/L Potassium (3.5-5.1) mmol/L Chloride (98-107) mmol/L Carbon Dioxide (22-30) mmol/L Anion Gap (5-15) MEQ/L BUN (7-17) mg/dL Creatinine (0.52-1.04) mg/dL Estimated GFR ML/MIN Glucose (74-106) mg/dL Lactic Acid (0.4-2.0) Calcium (8.4-10.2) mg/dL Total Bilirubin (0.2-1.3) mg/dL AST (14-36) U/L ALT (0-35) U/L Alkaline Phosphatase (38-126) U/L Troponin I (0.000-0.034) ng/mL NT-Pro-B Natriuret Pep (0-900) pg/mL Serum Total Protein (6.3-8.2) g/dL Albumin (3.5-5.0) g/dL Amylase (30-110) U/L Lipase (23-300) U/L Urine Color Dark Yellow A (Yellow) Urine Appearance Clear (Clear) Urine pH 5.0 (4.6-8.0) Ur Specific [place] >=1.030 A (1.005-1.030) Urine Protein Trace A (Negative) Urine Glucose (UA) Negative (Negative) mg/dL Urine Ketones 15 A (Negative) Urine Blood Negative (Negative) Urine Nitrite Negative (Negative) Urine Bilirubin Negative (Negative) Urine Urobilinogen 0.2 (0.2) mg/dL Ur Leukocyte Esterase Trace A (Negative) U Hyaline Cast (Auto) 3-5 A (0-2) /LPF Urine Microscopic RBC 0-2 (0-5) /HPF Urine Microscopic WBC 3-5 (0-5) /HPF Ur Epithelial Cells None Seen (None Seen) /HPF Urine Bacteria None Seen (None Seen) /HPF Urine Culture Reflexed NO (NO) Influenza Type A Ag NEGATIVE (NEGATIVE) Influenza Type B Ag NEGATIVE (NEGATIVE) RSV (PCR) NEGATIVE (Negative) SARS-CoV-2 (PCR) NEGATIVE (NEGATIVE) 08/08/22 08/08/22 08/08/22 Range/Units 13:45 13:45 13:45 WBC 9.5 (4.0-10.5) x10^3/uL RBC 4.10 (4.1-5.4) x10^6/uL Hgb 12.5 (12.0-16.0) g/dL Hct 39.0 (35-47) % MCV 95.1 (78-100) fL MCH 30.5 (26-32) pg MCHC 32.1 (32-36) g/dL RDW 13.5 (11.5-14.0) % Plt Count 264 (150-450) x10^3/uL MPV 8.5 (7.5-11.0) fL Gran % 84.4 H (36.0-66.0) % Immature Gran % (Auto) 0.6 H (0.00-0.4) % Nucleat RBC Rel Count 0.0 (0.00-0.1) % Eos # (Auto) 0.08 (0-0.5) x10^3/uL Immature Gran # (Auto) 0.06 H (0.00-0.03) x10^3u/L Absolute Lymphs (auto) 0.88 L (1.0-4.6) x10^3/uL Absolute Monos (auto) 0.46 (0.0-1.3) x10^3/uL Absolute Nucleated RBC 0.00 (0.00-0.01) x10^3u/L Lymphocytes % 9.2 L (24.0-44.0) % Monocytes % 4.8 (0.0-12.0) % Eosinophils % 0.8 (0.00-5.0) % Basophils % 0.2 (0.0-0.4) % Absolute Granulocytes 8.02 H (1.4-6.9) x10^3/uL Basophils # 0.02 (0-0.4) x10^3/uL D-Dimer (0.0-0.50) mg/L Sodium 135 L (137-145) mmol/L Potassium 3.8 (3.5-5.1) mmol/L Chloride 106 (98-107) mmol/L Carbon Dioxide 22 (22-30) mmol/L Anion Gap 10.6 (5-15) MEQ/L BUN 14 (7-17) mg/dL Creatinine 0.49 L (0.52-1.04) mg/dL Estimated GFR > 60.0 ML/MIN Glucose 101 (74-106) mg/dL Lactic Acid (0.4-2.0) Calcium 9.5 (8.4-10.2) mg/dL Total Bilirubin 0.40 (0.2-1.3) mg/dL AST 45 H (14-36) U/L ALT 41 H (0-35) U/L Alkaline Phosphatase 67 (38-126) U/L Troponin I < 0.012 (0.000-0.034) ng/mL NT-Pro-B Natriuret Pep 251 (0-900) pg/mL Serum Total Protein 7.1 (6.3-8.2) g/dL Albumin 4.1 (3.5-5.0) g/dL Amylase 44 (30-110) U/L Lipase 43 (23-300) U/L Urine Color (Yellow) Urine Appearance (Clear) Urine pH (4.6-8.0) Ur Specific [place] (1.005-1.030) Urine Protein (Negative) Urine Glucose (UA) (Negative) mg/dL Urine Ketones (Negative) Urine Blood (Negative) Urine Nitrite (Negative) Urine Bilirubin (Negative) Urine Urobilinogen (0.2) mg/dL Ur Leukocyte Esterase (Negative) U Hyaline Cast (Auto) (0-2) /LPF Urine Microscopic RBC (0-5) /HPF Urine Microscopic WBC (0-5) /HPF Ur Epithelial Cells (None Seen) /HPF Urine Bacteria (None Seen) /HPF Urine Culture Reflexed (NO) Influenza Type A Ag (NEGATIVE) Influenza Type B Ag (NEGATIVE) RSV (PCR) (Negative) SARS-CoV-2 (PCR) (NEGATIVE) 08/08/22 Range/Units 13:39 WBC (4.0-10.5) x10^3/uL RBC (4.1-5.4) x10^6/uL Hgb (12.0-16.0) g/dL Hct (35-47) % MCV (78-100) fL MCH (26-32) pg MCHC (32-36) g/dL RDW (11.5-14.0) % Plt Count (150-450) x10^3/uL MPV (7.5-11.0) fL Gran % (36.0-66.0) % Immature Gran % (Auto) (0.00-0.4) % Nucleat RBC Rel Count (0.00-0.1) % Eos # (Auto) (0-0.5) x10^3/uL Immature Gran # (Auto) (0.00-0.03) x10^3u/L Absolute Lymphs (auto) (1.0-4.6) x10^3/uL Absolute Monos (auto) (0.0-1.3) x10^3/uL Absolute Nucleated RBC (0.00-0.01) x10^3u/L Lymphocytes % (24.0-44.0) % Monocytes % (0.0-12.0) % Eosinophils % (0.00-5.0) % Basophils % (0.0-0.4) % Absolute Granulocytes (1.4-6.9) x10^3/uL Basophils # (0-0.4) x10^3/uL D-Dimer (0.0-0.50) mg/L Sodium (137-145) mmol/L Potassium (3.5-5.1) mmol/L Chloride (98-107) mmol/L Carbon Dioxide (22-30) mmol/L Anion Gap (5-15) MEQ/L BUN (7-17) mg/dL Creatinine (0.52-1.04) mg/dL Estimated GFR ML/MIN Glucose (74-106) mg/dL Lactic Acid 1.1 (0.4-2.0) Calcium (8.4-10.2) mg/dL Total Bilirubin (0.2-1.3) mg/dL AST (14-36) U/L ALT (0-35) U/L Alkaline Phosphatase (38-126) U/L Troponin I (0.000-0.034) ng/mL NT-Pro-B Natriuret Pep (0-900) pg/mL Serum Total Protein (6.3-8.2) g/dL Albumin (3.5-5.0) g/dL Amylase (30-110) U/L Lipase (23-300) U/L Urine Color (Yellow) Urine Appearance (Clear) Urine pH (4.6-8.0) Ur Specific [place] (1.005-1.030) Urine Protein (Negative) Urine Glucose (UA) (Negative) mg/dL Urine Ketones (Negative) Urine Blood (Negative) Urine Nitrite (Negative) Urine Bilirubin (Negative) Urine Urobilinogen (0.2) mg/dL Ur Leukocyte Esterase (Negative) U Hyaline Cast (Auto) (0-2) /LPF Urine Microscopic RBC (0-5) /HPF Urine Microscopic WBC (0-5) /HPF Ur Epithelial Cells (None Seen) /HPF Urine Bacteria (None Seen) /HPF Urine Culture Reflexed (NO) Influenza Type A Ag (NEGATIVE) Influenza Type B Ag (NEGATIVE) RSV (PCR) (Negative) SARS-CoV-2 (PCR) (NEGATIVE) - Progress Progress: improved, re-examined Air Movement: good Progress Note: 08/08/22 17:34 discussed with pt and consulted Dr. Bassett, and all agree best to place in hospital [facility] eval for new O2 requirement and CP overnight. Blood Culture(s) Obtained: No Antibiotics given: No Counseled pt/family regarding: lab results, diagnosis, need for follow-up, rad results - Departure Departure Disposition: Observation Clinical Impression: Chest pain, new Oxygen requirement Condition: Good Critical Care Time: No Referrals: JUDY WALDEN, [Primary Care Provider] - Follow up/PCP as directed
[2022-08-08] MEDS ORDERED: Zofran 4 MG/2 ML VIAL IV ONE ×2 (13:17→16:34)
[2022-08-08] MEDS ORDERED: Pepcid 20 MG VIAL IV ONE ×2 (13:17→13:38)
[2022-08-08] MEDS ORDERED: BENADRYL 50 MG/ML IV ONE (13:17)
[2022-08-08] MEDS ORDERED: MORPHINE SULFATE 4 MG INJ IV ONE (13:17)
[2022-08-08] MEDS ORDERED: Sodium Chloride 0.9% 1000 ML 1,000 ML IV SCH (13:30)
[2022-08-08] MEDS ORDERED: BENADRYL 50 MG/ML ONE (13:38)
[2022-08-08] MEDS ORDERED: Zofran 4 MG/2 ML VIAL ONE ×2 (13:38→17:07)
[2022-08-08] MEDS ORDERED: MORPHINE SULFATE 4 MG INJ ONE (13:38)
[2022-08-08] MEDS ORDERED: Sodium Chloride 0.9% 1000 ML 1,000 ML ONE (13:39)
[2022-08-08 13:42] LABS: Absolute Neutrophil Ct (ANC) 8.02 x10^3/uL (1.4-6.9); BASOPHIL % 0.2 % (0.0-0.4); Basophil (Absolute #) 0.02 x10^3/uL (0-0.4); Eosinophil % 0.8 % (0.00-5.0); Eosinophil (Absolute #) 0.08 x10^3/uL (0-0.5); Hemoglobin 12.5 g/dL (12.0-16.0); IMMATURE GRAN # 0.06 x10^3u/L (0.00-0.03); IMMATURE GRAN % 0.6 % (0.00-0.4); Lymphocyte (Absolute #) 0.88 x10^3/uL (1.0-4.6); Lymphocytes % 9.2 % (24.0-44.0); Mean Cell Volume 95.1 fL (78-100); Mean Corpuscular Hemoglobin 30.5 pg (26-32); Mean Corpuscular Hgb Concent. 32.1 g/dL (32-36); Mean Platelet Volume 8.5 fL (7.5-11.0); Monocyte (Absolute #) 0.46 x10^3/uL (0.0-1.3); Monocytes % 4.8 % (0.0-12.0); Neutrophil % 84.4 % (36.0-66.0); Platelet Count 264 x10^3/uL (150-450); Red Cell Distribution Width 13.5 % (11.5-14.0); White Blood Count 9.5 x10^3/uL (4.0-10.5)
--- NOTE | 2022-08-08 13:53 | XRAY ---
Indication: Chest pain. Comparison: December 26, 2021 Portable chest remains hyperinflated and clear. Heart not enlarged. Bony thorax intact again with osteopenia, degenerative changes, old bilateral rib fractures, and old left humerus fracture with intact hardware. Stable epigastric suture material. Impression: Continued nonacute hyperinflated chest with chronic features.
[2022-08-08 14:08] LABS: ALBUMIN 4.1 g/dL (3.5-5.0); ALKALINE PHOSPHATASE 67 U/L (38-126); AMYLASE 44 U/L (30-110); ANION GAP 10.6 MEQ/L (5-15); BLOOD UREA NITROGEN 14 mg/dL (7-17); CHLORIDE 106 mmol/L (98-107); Calcium 9.5 mg/dL (8.4-10.2); Carbon Dioxide 22 mmol/L (22-30); Creatinine 1 0.49 mg/dL (0.52-1.04); EST GLOMERULAR FILTRATION RATE > 60.0 ML/MIN; Glucose 101 mg/dL (74-106); LIPASE 43 U/L (23-300); NT PRO BNP 251 pg/mL (0-900); Potassium 3.8 mmol/L (3.5-5.1); SGOT/AST 45 U/L (14-36); SGPT/ALT 41 U/L (0-35); SODIUM 135 mmol/L (137-145); Total Protein 7.1 g/dL (6.3-8.2)
[2022-08-08 14:44] LABS: INFLUENZA A NEGATIVE (NEGATIVE); INFLUENZA B NEGATIVE (NEGATIVE); RESPIRATORY SYNCTIAL VIRUS NEGATIVE (Negative); SARS-CoV-2 Xpert Express NEGATIVE (NEGATIVE)
[2022-08-08 15:47] LABS: Appearance Clear (Clear); Bacteria None Seen /HPF (None Seen); Bilirubin Negative (Negative); Blood Negative (Negative); Epithelial Cells None Seen /HPF (None Seen); Glucose, Urine Negative (Negative); Ketones 15 (Negative); Leukocyte Esterase Trace (Negative); Nitrite Negative (Negative); Protein,Urine Dip Trace (Negative); RBC 0-2 /HPF (0-5); Specific Gravity >=1.030 (1.005-1.030); Urobilinogen 0.2 mg/dL (0.2)
[2022-08-08 16:12] LABS: ADD URINE CULTURE? NO (NO)
[2022-08-08] MEDS ORDERED: Senokot-S Tablet PO PRN (18:02)
[2022-08-08] MEDS ORDERED: HUMULIN R SQ PRN (18:02)
[2022-08-08] MEDS ORDERED: solu-MEDROL 60 MG, Sterile H2O 10 ml 2 ML IV SCH ×2 (18:02)
[2022-08-08] MEDS ORDERED: MILK OF MAGNESIA 30 ML PO PRN (18:02)
[2022-08-08] MEDS ORDERED: TYLENOL 325 MG PO PRN (18:02)
[2022-08-08] MEDS ORDERED: MAALOX ES 30 ML UNIT DOSE PO PRN (18:02)
[2022-08-08] MEDS: Sodium Chloride 0.9% 500 ML 500 ML IV SCH (18:40)
[2022-08-08] MEDS ORDERED: DUONEB 0.5-3 MG/3 ml Neb IH SCH (19:00)
[2022-08-08] MEDS: MORPHINE SULFATE 4 MG INJ IV PRN (19:49)
[2022-08-08] MEDS: Pepcid 20 MG VIAL IV SCH (21:15)
[2022-08-08] MEDS ORDERED: VENTOLIN COMMON CANISTER IH PRN (22:26)
[2022-08-09] MEDS: MORPHINE SULFATE 4 MG INJ IV PRN ×3 (00:57→13:36)
[2022-08-09] MEDS: Zofran 4 MG/2 ML VIAL IV PRN ×2 (00:58→20:24)
[2022-08-09 06:07] LABS: Hematocrit 37.6 % (35-47); Mean Cell Volume 95.2 fL (78-100); Mean Corpuscular Hemoglobin 30.4 pg (26-32); Mean Corpuscular Hgb Concent. 31.9 g/dL (32-36); Mean Platelet Volume 8.6 fL (7.5-11.0); Platelet Count 227 x10^3/uL (150-450); Red Blood Count 3.95 x10^6/uL (4.1-5.4); Red Cell Distribution Width 13.7 % (11.5-14.0); White Blood Count 5.8 x10^3/uL (4.0-10.5)
[2022-08-09 06:40] LABS: Potassium 3.7 mmol/L (3.5-5.1)
[2022-08-09 06:53] LABS: ALBUMIN 3.8 g/dL (3.5-5.0); ALKALINE PHOSPHATASE 100 U/L (38-126); BLOOD UREA NITROGEN 7 mg/dL (7-17); CHLORIDE 104 mmol/L (98-107); Calcium 8.5 mg/dL (8.4-10.2); Carbon Dioxide 28 mmol/L (22-30); Cholesterol 113 mg/dL (50-200); Creatinine 1 0.43 mg/dL (0.52-1.04); EST GLOMERULAR FILTRATION RATE > 60.0 ML/MIN; Glucose 88 mg/dL (74-106); HDL CHOLESTEROL 66 mg/dL (40-60); LDL, DIRECT < 36 mg/dL (30-100); Risk Ratio 1.7; SGOT/AST 279 U/L (14-36); SGPT/ALT 122 U/L (0-35); SODIUM 136 mmol/L (137-145); TRIGLYCERIDE 69 mg/dL (30-150); Total Protein 6.8 g/dL (6.3-8.2)
[2022-08-09 07:01] LABS: ANION GAP 7.2 MEQ/L (5-15)
[2022-08-09] MEDS ORDERED: MORPHINE SULFATE 4 MG INJ ONE (07:18)
[2022-08-09] MEDS: ZOFRAN ODT 4 MG PO PRN ×2 (07:20→13:36)
[2022-08-09] MEDS: Advair Hfa 115/21 Common canister IH SCH ×2 (08:01→19:36)
[2022-08-09] MEDS ORDERED: NON-FORMULARY ITEM (Albuterol [Albuterol] 17 GM Aerosol) IH PRN (08:13)
[2022-08-09] MEDS ORDERED: VENTOLIN COMMON CANISTER IH PRN (08:32)
[2022-08-09] MEDS: Ocuvite Tablet PO SCH ×2 (08:46→21:01)
[2022-08-09] MEDS: MELOXICAM PO SCH (08:46)
[2022-08-09] MEDS: Ecotrin 325 MG PO SCH (08:46)
[2022-08-09] MEDS: Toprol-Xl 25MG Tablets PO SCH (08:47)
[2022-08-09] MEDS: Protonix 40MG Tablet PO SCH (08:47)
[2022-08-09] MEDS: ULTRAM 50 MG PO SCH ×3 (08:47→21:01)
[2022-08-09] MEDS: Pepcid 20 MG VIAL IV SCH ×2 (08:47→21:01)
[2022-08-09] MEDS: THERAGRAN MULTIVITAMIN PO SCH (08:47)
[2022-08-09] MEDS: Robaxin PO SCH ×3 (08:47→21:01)
[2022-08-09] MEDS: Vitamin B-12 500 MCG PO SCH (08:47)
[2022-08-09] MEDS: CLARITIN-D 24HR TABLET PO SCH (08:48)
[2022-08-09] MEDS: Lexapro PO SCH (08:53)
[2022-08-09] MEDS ORDERED: FOLIC ACID PO SCH (10:00)
[2022-08-09] MEDS ORDERED: [UNRECOGNIZED DRUG - OTHER] PO SCH (10:00)
[2022-08-09] MEDS ORDERED: FEXOFENADINE PO SCH (10:00)
[2022-08-09] MEDS ORDERED: PSEUDOEPHEDRINE PO SCH (10:00)
[2022-08-09] MEDS ORDERED: [UNRECOGNIZED DRUG - OTHER] PO SCH (10:00)
[2022-08-09] MEDS ORDERED: NON-FORMULARY ITEM (Vit A/Vit C/Vit E/Zinc/Copper [Preservision Areds Softgel] 1 EACH Caps PO SCH (10:00)
[2022-08-09] MEDS ORDERED: DEXLANSOPRAZOLE 60 MG PO SCH (10:00)
--- NOTE | 2022-08-09 15:50 | PCM.HP ---
History of Present Illness - Chief Complaint Chief Complaint: Shortness of Breath History of Present Illness: is a 67 year old female pt of Dr. Alvarado with THALIA and hx bariatric surgery who was admitted through ER [facility] chest pain and dizziness. Her troponins have been normal x 3. Hgb 12.0. Two days ago she was stiff and sore and it hurt to move. Yesterday it worsened, but she got up to do dishes and "work it out," then went to stand at the bathroom sink and felt sick, and sweaty. Chest had burning 10/10 pain bilaterally radiating to the arms and back. She had to have help back to her chair. Also c/o increased bilat LE edema. She has no personal hx CAD but her F and brothers have it. She did have an echo recently, but doesn't think she's had any stress tests. Currently, her chest/arms/back/and legs have 7/10 pain. Having some nausea. - Review of Systems Cardiac: Chest Pain, Other (diaphoresis) Abdominal/Gastrointestinal: Abdominal Pain (after eating, intermittently or if needs to have BM), Nausea, Diarrhea (yesterday, chronic), Constipation (BM q3-4 d) Genitourinary Symptoms: Other (recent UTI with micro hematuria) Neurological: Dizziness (felt presyncopal) Psychological: Depression (chronic), No Suicidal Ideations, No Homicidal Ideations Medications & Allergies Home Medications: Home Medication List Dexlansoprazole [Dexilant] 60 mg PO DAILY 08/08/16 [History Confirmed 08/08/22] Metoprolol Succinate [Toprol Xl] 25 mg PO DAILY 01/09/18 [History Confirmed 08/08/22] Albuterol 2 puffs IH Q4H PRN PRN 08/21/19 [History Confirmed 08/08/22] Fexofenadine/Pseudoephedrine [Betina-D 12 Hour Tablet] 1 tab PO DAILY 08/21/19 [History Confirmed 08/08/22] Tramadol HCl 50 mg [Ultram 50 mg] 50 mg PO TID 08/21/19 [History Confirmed 08/08/22] Escitalopram Oxalate [Lexapro] 10 mg PO DAILY 07/17/20 [History Confirmed 08/08/22] Meloxicam 7.5 mg PO DAILY 07/17/20 [History Confirmed 08/08/22] Cyanocobalamin 500 Mcg [Vitamin B-12 500 MCG] 1,000 mcg PO DAILY 08/08/22 [History Confirmed 08/08/22] Fluticasone/Umeclidin/Vilanter [Trelegy Ellipta 100-62.5-25] 1 puff IH DAILY 08/08/22 [History Confirmed 08/08/22] Mvit-Mins/Folic Acid/Soy Isofl [One-A-Day Menopause Formula Tb] 1 each PO BID 08/08/22 [History Confirmed 08/08/22] Ondansetron [Ondansetron Odt] 8 mg PO Q6H PRN 08/08/22 [History Confirmed 08/08/22] Vit A/Vit C/Vit E/Zinc/Copper [Preservision Areds Softgel] 1 each PO BID 08/08/22 [History Confirmed 08/08/22] methocarbamoL [Methocarbamol] 500 mg PO TID 08/08/22 [History Confirmed 08/08/22] Allergies/Adverse Reactions: Allergies Allergy/AdvReac Type Severity Reaction Status Date / Time amitriptyline [From Elavil] Allergy Severe aggitation/ Verified 08/08/22 12:25 angry duloxetine [From Cymbalta] Allergy Severe Nausea and Verified 08/08/22 12:25 Vomiting - Past Medical History Past Medical History: Yes Neurological History: Seizures ENT History: No Pertinent History, Macular Degeneration, Other Cardiac History: Hypertension Respiratory History: COPD, Sleep Apnea Endocrine Medical History: Liver Disease Musculoskelatal History: Arthritis, Fibromyalgia, Fractures, Osteoporosis GI Medical History: GERD History: No Pertinent History, Other Pyscho-Social History: Depression Reproductive Disorders: No Pertinent History Comment: Partial seizures, Brain bleed from fall on march - Female History Are you now?: No - Past Surgical History Past Surgical History: Yes Neuro Surgical History: No Pertinent History Cardiac History: No Pertinent History Respiratory Surgery: No Pertinent History GI Surgical History: Cholecystectomy, Other Genitourinary Surgical Hx: No Pertinent History Musculskeletal Surgical Hx: Joint Replacement, Orthopedic Surgery Female Surgical History: Tubal Ligation Other Surgical History: gastroplasty, right shoulder, bilateral hip/knee surgeries, colonoscopy, LT and RT FOOT - Social History Smoking Status: Former smoker How long have you smoked: 30 years Exposure to second hand smoke: No Alcohol: None Drug Use: none Significant Family History: heart disease, hypertension - Physical Exam Vital Signs: Vital Signs - 24 hr Temp Pulse Resp BP Pulse Ox 08/09/22 12:00 98.0 F 83 17 150/66 94 L 08/09/22 08:02 87 16 96 08/09/22 08:00 97.7 F 121 H 18 119/65 93 L 08/09/22 03:28 97.1 F 106 H 16 130/66 96 08/08/22 23:31 96.9 F 84 16 137/65 95 08/08/22 20:52 65 18 95 08/08/22 19:45 97.7 F 67 16 147/69 95 08/08/22 18:06 98.6 F 68 22 164/73 97 08/08/22 17:36 98 08/08/22 17:00 77 19 125/68 95 08/08/22 16:00 82 15 143/86 95 General Appearance: no apparent distress, alert Neurologic Exam: oriented x 3, cooperative, normal mood/affect Eye Exam: eyes nml inspection Ears, Nose, Throat Exam: moist mucous membranes Neck Exam: normal inspection, non-tender, No lymphadenopathy, No subcutaneous emphysema, No thyromegaly Respiratory Exam: normal breath sounds, lungs clear, No crackles/rales, No rhonchi, No wheezing Cardiovascular Exam: regular rate/rhythm, normal heart sounds, No murmur Gastrointestinal/Abdomen Exam: soft, normal bowel sounds, No tenderness, No distention, No mass, No guarding, No rebound Back Exam: normal inspection, No rash Extremity Exam: normal inspection, No pedal edema, No swelling Skin Exam: normal color, warm, dry, No rash Results - Labs Lab/Micro Results: Lab Results-Last 24 Hours 08/08/22 08/08/22 08/08/22 Range/Units 15:05 15:15 21:55 WBC (4.0-10.5) x10^3/uL RBC (4.1-5.4) x10^6/uL Hgb (12.0-16.0) g/dL Hct (35-47) % MCV (78-100) fL MCH (26-32) pg MCHC (32-36) g/dL RDW (11.5-14.0) % Plt Count (150-450) x10^3/uL MPV (7.5-11.0) fL Sodium (137-145) mmol/L Potassium (3.5-5.1) mmol/L Chloride (98-107) mmol/L Carbon Dioxide (22-30) mmol/L Anion Gap (5-15) MEQ/L BUN (7-17) mg/dL Creatinine (0.52-1.04) mg/dL Estimated GFR ML/MIN Glucose (74-106) mg/dL Calcium (8.4-10.2) mg/dL Total Bilirubin (0.2-1.3) mg/dL AST (14-36) U/L ALT (0-35) U/L Alkaline Phosphatase (38-126) U/L Troponin I < 0.012 < 0.012 (0.000-0.034) ng/mL Serum Total Protein (6.3-8.2) g/dL Albumin (3.5-5.0) g/dL Triglycerides (30-150) mg/dL Cholesterol (50-200) mg/dL LDL Cholesterol (30-100) mg/dL HDL Cholesterol (40-60) mg/dL Heart Disease Risk Ratio Urine Color Dark Yellow A (Yellow) Urine Appearance Clear (Clear) Urine pH 5.0 (4.6-8.0) Ur Specific [place] >=1.030 A (1.005-1.030) Urine Protein Trace A (Negative) Urine Glucose (UA) Negative (Negative) mg/dL Urine Ketones 15 A (Negative) Urine Blood Negative (Negative) Urine Nitrite Negative (Negative) Urine Bilirubin Negative (Negative) Urine Urobilinogen 0.2 (0.2) mg/dL Ur Leukocyte Esterase Trace A (Negative) U Hyaline Cast (Auto) 3-5 A (0-2) /LPF Urine Microscopic RBC 0-2 (0-5) /HPF Urine Microscopic WBC 3-5 (0-5) /HPF Ur Epithelial Cells None Seen (None Seen) /HPF Urine Bacteria None Seen (None Seen) /HPF Urine Culture Reflexed NO (NO) 08/09/22 08/09/22 Range/Units 05:55 05:55 WBC 5.8 (4.0-10.5) x10^3/uL RBC 3.95 L (4.1-5.4) x10^6/uL Hgb 12.0 (12.0-16.0) g/dL Hct 37.6 (35-47) % MCV 95.2 (78-100) fL MCH 30.4 (26-32) pg MCHC 31.9 L (32-36) g/dL RDW 13.7 (11.5-14.0) % Plt Count 227 (150-450) x10^3/uL MPV 8.6 (7.5-11.0) fL Sodium 136 L (137-145) mmol/L Potassium 3.7 (3.5-5.1) mmol/L Chloride 104 (98-107) mmol/L Carbon Dioxide 28 (22-30) mmol/L Anion Gap 7.2 (5-15) MEQ/L BUN 7 (7-17) mg/dL Creatinine 0.43 L (0.52-1.04) mg/dL Estimated GFR > 60.0 ML/MIN Glucose 88 (74-106) mg/dL Calcium 8.5 (8.4-10.2) mg/dL Total Bilirubin 0.40 (0.2-1.3) mg/dL AST 279 H (14-36) U/L ALT 122 H (0-35) U/L Alkaline Phosphatase 100 (38-126) U/L Troponin I (0.000-0.034) ng/mL Serum Total Protein 6.8 (6.3-8.2) g/dL Albumin 3.8 (3.5-5.0) g/dL Triglycerides 69 (30-150) mg/dL Cholesterol 113 (50-200) mg/dL LDL Cholesterol < 36 (30-100) mg/dL HDL Cholesterol 66 H (40-60) mg/dL Heart Disease Risk Ratio 1.7 Urine Color (Yellow) Urine Appearance (Clear) Urine pH (4.6-8.0) Ur Specific [place] (1.005-1.030) Urine Protein (Negative) Urine Glucose (UA) (Negative) mg/dL Urine Ketones (Negative) Urine Blood (Negative) Urine Nitrite (Negative) Urine Bilirubin (Negative) Urine Urobilinogen (0.2) mg/dL Ur Leukocyte Esterase (Negative) U Hyaline Cast (Auto) (0-2) /LPF Urine Microscopic RBC (0-5) /HPF Urine Microscopic WBC (0-5) /HPF Ur Epithelial Cells (None Seen) /HPF Urine Bacteria (None Seen) /HPF Urine Culture Reflexed (NO) - Radiology Impressions Radiology Exams & Impressions: Radiology Procedures Category Date Time Status CHEST 1 VIEW (PORTABLE) Stat Exams 08/08/22 13:18 Completed - Other Procedures and Tests Respiratory Therapy 08/08/22 18:02 Oxygen Nasal Cannula 2 lpm 08/08/22 20:51 Respiratory Therapy Assessment DAILY 08/10/22 05:00 EKG DAILY 08/11/22 05:00 EKG DAILY Assessment/Plan (1) Chest pain Current Visit: Yes Status: Chronic Qualifiers: Chest pain type: unspecified Qualified Code(s): R07.9 - Chest pain, unspecified Assessment & Plan: ND ruled out with 3 neg troponins. EKG NSR with on St changes. If felt better later, could d/c to home. Code(s): R07.9 - CHEST PAIN, UNSPECIFIED (2) Elevated liver enzymes Current Visit: Yes Status: Acute Assessment & Plan: Initially, AST and ALT were 45 and 41, but today are 279 and 122 - will recheck tomorrow. Code(s): R74.8 - ABNORMAL LEVELS OF OTHER SERUM ENZYMES (3) Hyponatremia Current Visit: Yes Status: Acute Assessment & Plan: mild, from 135 to 136 today. Code(s): E87.1 - HYPO-OSMOLALITY AND HYPONATREMIA (4) Myalgia Current Visit: Yes Status: Acute Assessment & Plan: If she were feeling fine, would be ok to send home, but still having quite a bit of pain. Could be a viral illness or a fibromyalgia flare. CK pending. Code(s): M79.10 - MYALGIA, UNSPECIFIED SITE (5) Back pain Current Visit: No Status: Acute Qualifiers: Back pain location: low back pain Chronicity: unspecified Back pain laterality: right Sciatica presence: with sciatica Sciatica laterality: sciatica of right side Qualified Code(s): M54.41 - Lumbago with sciatica, right side Code(s): M54.9 - DORSALGIA, UNSPECIFIED
[2022-08-09] MEDS: Sodium Chloride 0.9% 500 ML 500 ML IV SCH (16:47)
[2022-08-10] MEDS: Zofran 4 MG/2 ML VIAL IV PRN (03:46)
[2022-08-10 05:58] LABS: Absolute Neutrophil Ct (ANC) 3.39 x10^3/uL (1.4-6.9); BASOPHIL % 0.4 % (0.0-0.4); Basophil (Absolute #) 0.02 x10^3/uL (0-0.4); Eosinophil % 3.4 % (0.00-5.0); Eosinophil (Absolute #) 0.19 x10^3/uL (0-0.5); Hematocrit 33.5 % (35-47); Hemoglobin 10.8 g/dL (12.0-16.0); IMMATURE GRAN # 0.02 x10^3u/L (0.00-0.03); IMMATURE GRAN % 0.4 % (0.00-0.4); Lymphocyte (Absolute #) 1.31 x10^3/uL (1.0-4.6); Lymphocytes % 23.7 % (24.0-44.0); Mean Cell Volume 94.6 fL (78-100); Mean Corpuscular Hemoglobin 30.5 pg (26-32); Mean Corpuscular Hgb Concent. 32.2 g/dL (32-36); Monocytes % 10.8 % (0.0-12.0); Neutrophil % 61.3 % (36.0-66.0); Platelet Count 256 x10^3/uL (150-450); Red Blood Count 3.54 x10^6/uL (4.1-5.4); White Blood Count 5.5 x10^3/uL (4.0-10.5)
[2022-08-10 06:14] LABS: ALBUMIN 3.7 g/dL (3.5-5.0); ALKALINE PHOSPHATASE 94 U/L (38-126); ANION GAP 11.3 MEQ/L (5-15); BLOOD UREA NITROGEN 8 mg/dL (7-17); CHLORIDE 100 mmol/L (98-107); Calcium 8.8 mg/dL (8.4-10.2); Carbon Dioxide 28 mmol/L (22-30); Creatinine 1 0.39 mg/dL (0.52-1.04); EST GLOMERULAR FILTRATION RATE > 60.0 ML/MIN; Glucose 89 mg/dL (74-106); Potassium 3.9 mmol/L (3.5-5.1); SGOT/AST 91 U/L (14-36); SGPT/ALT 84 U/L (0-35); SODIUM 136 mmol/L (137-145); Total Protein 6.7 g/dL (6.3-8.2)
[2022-08-10] MEDS: Advair Hfa 115/21 Common canister IH SCH (06:53)
[2022-08-10 07:48] VITALS: BP 111/56; PULSE 73; O2SAT 97
[2022-08-10] MEDS: MELOXICAM PO SCH (08:44)
[2022-08-10] MEDS: Toprol-Xl 25MG Tablets PO SCH (08:44)
[2022-08-10] MEDS: Ocuvite Tablet PO SCH (08:44)
[2022-08-10] MEDS: Ecotrin 325 MG PO SCH (08:45)
[2022-08-10] MEDS: Lexapro PO SCH (08:45)
[2022-08-10] MEDS: ULTRAM 50 MG PO SCH (08:45)
[2022-08-10] MEDS: Protonix 40MG Tablet PO SCH (08:45)
[2022-08-10] MEDS: THERAGRAN MULTIVITAMIN PO SCH (08:45)
[2022-08-10] MEDS: CLARITIN-D 24HR TABLET PO SCH (08:45)
[2022-08-10] MEDS: Vitamin B-12 500 MCG PO SCH (08:45)
[2022-08-10] MEDS: Robaxin PO SCH (08:46)
[2022-08-10] MEDS: Pepcid 20 MG VIAL IV SCH (08:46)
[2022-08-10] MEDS: ZOFRAN ODT 4 MG PO PRN (08:50)
--- NOTE | 2022-08-10 09:57 | PCM.DS ---
Discharge Summary Date of Admission: 08/08/22 17:59 Admitting Physician: PAMELA CABEZAS Primary Care Provider: JUDY ALVARADO DO Allergies Allergies amitriptyline [From Elavil] Allergy (Severe, Verified 08/08/22 12:25) aggitation/angry duloxetine [From Cymbalta] Allergy (Severe, Verified 08/08/22 12:25) Nausea and Vomiting Hospital Summary - Hospital Course Hospital Course: is a 67 year old female pt of Dr. Alvarado with THALIA and hx bariatric surgery who was admitted through ER with chest pain and dizziness. Her troponins were normal x 3. EKG nonacute. After ruling out for DC the first day, she was still having burning chest pain, back pain, arm and leg pain. Her LFTs were elevated - in the 40s day 1, but >200 on day #2. Today they are back down to the 90s. She does not have a gallbladder. Today she says she has 7/10 back, arm, and leg pain, somewhat chronic in nature. Will discharge to home. She already has an appt with Dr. Alvarado on Thursday. Will recheck CMP in 1 wk. - Vitals & Intake/Output Vital Signs: Vital Signs Temperature 97.7 F 08/10/22 07:47 Pulse Rate 73 08/10/22 07:47 Respiratory Rate 17 08/10/22 07:47 Blood Pressure 111/56 08/10/22 07:47 O2 Sat by Pulse Oximetry 97 08/10/22 07:47 Intake & Output: Intake & Output 08/07/22 08/08/22 08/09/22 08/10/22 11:59 11:59 11:59 11:59 Intake Total 1087 1340 Output Total 800 1000 Balance 287 340 Weight 60.3 kg - Lab Result Diagrams: 08/10/22 05:20 08/10/22 05:20 Lab Results-Last 24 Hrs: Lab Results-Last 24 Hours 08/09/22 08/10/22 08/10/22 Range/Units 05:55 05:20 05:20 WBC 5.5 (4.0-10.5) x10^3/uL RBC 3.54 L (4.1-5.4) x10^6/uL Hgb 10.8 L (12.0-16.0) g/dL Hct 33.5 L (35-47) % MCV 94.6 (78-100) fL MCH 30.5 (26-32) pg MCHC 32.2 (32-36) g/dL RDW 14.0 (11.5-14.0) % Plt Count 256 (150-450) x10^3/uL MPV 9.0 (7.5-11.0) fL Gran % 61.3 (36.0-66.0) % Immature Gran % (Auto) 0.4 (0.00-0.4) % Nucleat RBC Rel Count 0.0 (0.00-0.1) % Eos # (Auto) 0.19 (0-0.5) x10^3/uL Immature Gran # (Auto) 0.02 (0.00-0.03) x10^3u/L Absolute Lymphs (auto) 1.31 (1.0-4.6) x10^3/uL Absolute Monos (auto) 0.60 (0.0-1.3) x10^3/uL Absolute Nucleated RBC 0.00 (0.00-0.01) x10^3u/L Lymphocytes % 23.7 L (24.0-44.0) % Monocytes % 10.8 (0.0-12.0) % Eosinophils % 3.4 (0.00-5.0) % Basophils % 0.4 (0.0-0.4) % Absolute Granulocytes 3.39 (1.4-6.9) x10^3/uL Basophils # 0.02 (0-0.4) x10^3/uL Sodium 136 L (137-145) mmol/L Potassium 3.9 (3.5-5.1) mmol/L Chloride 100 (98-107) mmol/L Carbon Dioxide 28 (22-30) mmol/L Anion Gap 11.3 (5-15) MEQ/L BUN 8 (7-17) mg/dL Creatinine 0.39 L (0.52-1.04) mg/dL Estimated GFR > 60.0 ML/MIN Glucose 89 (74-106) mg/dL Calcium 8.8 (8.4-10.2) mg/dL Total Bilirubin 0.40 (0.2-1.3) mg/dL AST 91 H (14-36) U/L ALT 84 H (0-35) U/L Alkaline Phosphatase 94 (38-126) U/L Creatine Kinase 36 (30-135) U/L Serum Total Protein 6.7 (6.3-8.2) g/dL Albumin 3.7 (3.5-5.0) g/dL - Radiology Exams Ordered Rad Exams-Entire Visit: Radiology Procedures Category Date Time Status CHEST 1 VIEW (PORTABLE) Stat Exams 08/08/22 13:18 Completed - Procedures and Test Procedures and Tests throughout Hospitalization: Therapy Orders & Screens 08/08/22 18:02 EKG Q8HX2,QAMX3,PRN Comment: Oxygen Nasal Cannula 2 lpm Comment: Respiratory Therapy Consult ONCE Comment: Reason For Exam: 08/08/22 20:51 Respiratory Therapy Assessment DAILY Comment: Diagnosis: Shortness of Breath 08/08/22 21:17 EKG ROUTINE Comment: Diagnosis: Shortness of Breath 08/09/22 05:00 EKG DAILY Comment: Diagnosis: Shortness of Breath 08/10/22 05:00 EKG DAILY Comment: Diagnosis: Shortness of Breath 08/11/22 05:00 EKG DAILY Comment: Diagnosis: Shortness of Breath Discharge Exam General Appearance: no apparent distress, alert Neurologic Exam: oriented x 3, cooperative Eye Exam: eyes nml inspection Ears, Nose, Throat Exam: moist mucous membranes Neck Exam: normal inspection Respiratory Exam: normal breath sounds, lungs clear, No crackles/rales, No rhonchi, No wheezing Cardiovascular Exam: regular rate/rhythm, normal heart sounds, No murmur Gastrointestinal/Abdomen Exam: soft, normal bowel sounds, No tenderness, No distention, No mass, No guarding, No rebound Back Exam: normal inspection, No rash Extremity Exam: normal inspection, No pedal edema, No swelling Skin Exam: normal color, warm, dry, No rash Final Diagnosis/Problem List - Final Discharge Diagnosis/Problem (1) Chest pain Current Visit: Yes Status: Resolved Code(s): R07.9 - CHEST PAIN, UNSPECIFIED (2) Elevated liver enzymes Current Visit: Yes Status: Acute Assessment & Plan: improved - recheck 1 wk Code(s): R74.8 - ABNORMAL LEVELS OF OTHER SERUM ENZYMES (3) Hyponatremia Current Visit: Yes Status: Acute Assessment & Plan: very mild, was 135 on admission and 136 the next 2 days. Code(s): E87.1 - HYPO-OSMOLALITY AND HYPONATREMIA (4) Myalgia Current Visit: Yes Status: Acute Code(s): M79.10 - MYALGIA, UNSPECIFIED SITE (5) Back pain Current Visit: No Status: Acute Code(s): M54.9 - DORSALGIA, UNSPECIFIED - Discharge Disposition: Home, Self-Care Condition: Good Prescriptions: Continue Dexlansoprazole [Dexilant] 60 mg PO DAILY Metoprolol Succinate [Toprol Xl] 25 mg PO DAILY Tramadol HCl 50 mg [Ultram 50 mg] 50 mg PO TID Albuterol 2 puffs IH Q4H PRN PRN PRN Reason: Shortness Of Breath Meloxicam 7.5 mg PO DAILY Escitalopram Oxalate [Lexapro] 10 mg PO DAILY Ondansetron [Ondansetron Odt] 8 mg PO Q6H PRN PRN Reason: Nausea Fluticasone/Umeclidin/Vilanter [Trelegy Ellipta 100-62.5-25] 1 puff IH DAILY methocarbamoL [Methocarbamol] 500 mg PO TID Cyanocobalamin 500 Mcg [Vitamin B-12 500 MCG] 1,000 mcg PO DAILY Vit A/Vit C/Vit E/Zinc/Copper [Preservision Areds Softgel] 1 each PO BID Mvit-Mins/Folic Acid/Soy Isofl [One-A-Day Menopause Formula Tb] 1 each PO BID Discontinued Fexofenadine/Pseudoephedrine [Betina-D 12 Hour Tablet] 1 tab PO DAILY Outpatient Orders: CMP Time Frame: 1 Week, Facility: [facility], Location: [facility] Instructions: Chest Pain That Is Not Caused by the Heart (DC), Preventing Falls in Older Adults Follow up with: JUDY ALVARADO DO [Primary Care Provider] -
[2022-08-10] MEDS ORDERED: Sodium Chloride 0.9% 1000 ML 0 ML ONE (12:10)
== END 2022-08-10 10:35 | disposition home or self-care (01) ==
LOC: ED 12:19 → MED SURG 17:59
PROVIDERS: ADMIT Family Medicine; ATTEND Family Medicine
DX: R07.9 Chest pain, unspecified (principal); R74.8 Abnormal levels of other serum enzymes; E87.1 Hypo-osmolality and hyponatremia; M79.10 Myalgia, unspecified site; M54.9 Dorsalgia, unspecified; R60.0 Localized edema; I10 Essential (primary) hypertension; Z79.899 Other long term (current) drug therapy; Z20.828 Contact with and (suspected) exposure to other viral communicable diseases; Z98.84 Bariatric surgery status
CPT/HCPCS: 0241U; 36415; 71045; 80053; 80061; 81001; 82150; 82550; 83605; 83690; 83721; 83880; 84484; 85025; 85027; 85379; 93005; 93268; 94640; 94760; 96374; 96375; 96376; 99285; G0378; J1200; J2270; J2405; Q0162; A9270-GY

== ENCOUNTER 2022-08-25 08:38 | Inpatient (IN) | payer MEDICARE ==
--- NOTE | 2022-08-25 08:45 | ERPHSYRPT ---
- History of Present Illness Time Seen by Provider: 08/25/22 08:45 Source: patient, family Exam Limitations: no limitations Physician History: This is a 67-year-old white female patient of Dr. Alvarado who presents with generalized pain. She has not fallen. She denies trauma. She denies chest pain and she is not short of breath. She has not had fevers. She denies cough. She was brought in by the ambulance service. Additional history was obtained from the patient's daughter and from the paramedics. Patient was started on Macrodantin 3 days ago to treat a urinary tract infection. Patient has been seen by medical providers several times within the dates 08/08/2022 to 08/25/2022. Specifically, the patient states she hurts everywhere but primarily left neck s pasms, right arm achiness and left flank pain. Patient has multiple medical issues including fibromyalgia, osteoporosis, arthritis, seizure disorder, hypertension, COPD, sleep apnea and gastroesophageal reflux disease. Timing/Duration: yesterday, intermittent, worse Severity: moderate Modifying Factors: Improves With: nothing Associated Symptoms: other (Generalized aches and pains), No nausea, No vomiting, No abdominal pain, No shortness of breath, No chest pain Allergies/Adverse Reactions: amitriptyline [From Elavil] Allergy (Severe, Verified 08/25/22 08:51) aggitation/angry duloxetine [From Cymbalta] Allergy (Severe, Verified 08/25/22 08:51) Nausea and Vomiting Home Medications: Dexlansoprazole [Dexilant] 60 mg PO DAILY 08/08/16 [History] Metoprolol Succinate [Toprol Xl] 25 mg PO DAILY 01/09/18 [History] Albuterol 2 puffs IH Q4H PRN PRN 08/21/19 [History] Tramadol HCl 50 mg [Ultram 50 mg] 50 mg PO TID 08/21/19 [History] Escitalopram Oxalate [Lexapro] 10 mg PO DAILY 07/17/20 [History] Meloxicam 7.5 mg PO DAILY 07/17/20 [History] Cyanocobalamin 500 Mcg [Vitamin B-12 500 MCG] 1,000 mcg PO DAILY 08/08/22 [History] Fluticasone/Umeclidin/Vilanter [Trelegy Ellipta 100-62.5-25] 1 puff IH DAILY 08/08/22 [History] Mvit-Mins/Folic Acid/Soy Isofl [One-A-Day Menopause Formula Tb] 1 each PO BID 08/08/22 [History] Ondansetron [Ondansetron Odt] 8 mg PO Q6H PRN 08/08/22 [History] Vit A/Vit C/Vit E/Zinc/Copper [Preservision Areds Softgel] 1 each PO BID 08/08/22 [History] methocarbamoL [Methocarbamol] 500 mg PO TID 08/08/22 [History] Nitrofurantoin Monohyd/M-Cryst [Nitrofurantoin [place]-Mcr 100 mg] 100 mg PO BID 08/25/22 [History] Hx Tetanus, Diphtheria Vaccination/Date Given: Yes Hx Influenza Vaccination/Date Given: Yes Hx Pneumococcal Vaccination/Date Given: No Travel Risk - International Travel Have you traveled outside of the country in past 3 weeks: No - Coronavirus Screening Are you exhibiting any of the following symptoms?: No Close contact with a COVID-19 positive Pt in past 14-21 Days: No - Vaccine Status Have you recieved a Covid-19 vaccination: No - Review of Systems Constitutional: No Symptoms Eyes: No Symptoms Ears, Nose, & Throat: No Symptoms Respiratory: No Symptoms Cardiac: No Symptoms Abdominal/Gastrointestinal: Nausea, Appetite Changes, No Abdominal Pain, No Vomiting, No Diarrhea, No Constipation Genitourinary Symptoms: No Symptoms Musculoskeletal: Arthralgias, Myalgias Skin: No Symptoms Neurological: No Symptoms Psychological: No Symptoms Endocrine: No Symptoms Hematologic/Lymphatic: No Symptoms Immunological/Allergic: No Symptoms All Other Systems: Reviewed and Negative - Past Medical History Pertinent Past Medical History: Yes Neurological History: Seizures ENT History: No Pertinent History, Macular Degeneration, Other Cardiac History: Hypertension Respiratory History: COPD, Sleep Apnea Endocrine Medical History: Liver Disease Musculoskeletal History: Arthritis, Fibromyalgia, Fractures, Osteoporosis GI Medical History: GERD History: No Pertinent History, Other Psycho-Social History: Depression Female Reproductive Disorders: No Pertinent History Other Medical History: Partial seizures, Brain bleed from fall on march - Past Surgical History Past Surgical History: Yes Neuro Surgical History: No Pertinent History Cardiac: No Pertinent History Respiratory: No Pertinent History Gastrointestinal: Cholecystectomy, Other Genitourinary: No Pertinent History Musculoskeletal: Joint Replacement, Orthopedic Surgery Female Surgical History: Tubal Ligation Other Surgical History: gastroplasty, right shoulder, bilateral hip/knee surgeries, colonoscopy, LT and RT FOOT - Social History Smoking Status: Former smoker How long have you smoked: 30 years Exposure to second hand smoke: No Alcohol Use: None Drug Use: none Patient Lives Alone: No Significant Family History: heart disease, hypertension - Nursing Vital Signs Nursing Vital Signs: Initial Vital Signs Temperature 97.1 F 08/25/22 08:40 Pulse Rate 82 08/25/22 08:40 Blood Pressure 135/69 08/25/22 08:40 O2 Sat by Pulse Oximetry 98 08/25/22 08:40 Pain Scale Pain Intensity [Neck] 10 Pain Intensity [Right Arm] 10 Pain Intensity [Left Arm] 10 Pain Intensity 6 - Physical Exam General Appearance: no apparent distress, alert, anxiety Eye Exam: PERRL/EOMI, eyes nml inspection Ears, Nose, Throat Exam: normal ENT inspection, moist mucous membranes Neck Exam: normal inspection, non-tender, supple, full range of motion Respiratory Exam: normal breath sounds, lungs clear, airway intact, No chest tenderness, No respiratory distress Cardiovascular Exam: regular rate/rhythm, normal heart sounds, normal peripheral pulses Gastrointestinal/Abdomen Exam: soft, normal bowel sounds, No tenderness Pelvic Exam: not done Rectal Exam: not done Back Exam: normal inspection, normal range of motion, No CVA tenderness, No vertebral tenderness Extremity Exam: normal inspection, normal range of motion, pelvis stable Neurologic Exam: alert, oriented x 3, cooperative, 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 tested, normal mood/affect, nml cerebellar function, nml station & gait, sensation nml Skin Exam: normal color, warm, dry Lymphatic Exam: No adenopathy SpO2 Interpretation: normal O2 Delivery: Room Air - Course Nursing assessment & vital signs reviewed: Yes EKG Interpreted by Me: RATE (84), Sinus Rhythm, NORMAL AXIS, NORMAL INTERVALS, NORMAL QRS, NORMAL ST-T, Other (No acute ischemia on today's twelve-lead EKG.) Ordered Tests: Active Orders 24 hr Category Date Time Status EKG-ER Only STAT Care 08/25/22 09:09 Active IV Insertion STAT Care 08/25/22 09:09 Active Pulse Oximetry (ED) STAT Care 08/25/22 09:09 Active cath [Cath for Specimen-Straight] STAT Care 08/25/22 12:27 Active CBC W DIFF Stat Lab 08/25/22 09:31 Completed CMP Stat Lab 08/25/22 09:31 Completed CULTURE,URINE Stat Lab 08/25/22 12:28 Received TROPONIN Q4H Lab 08/25/22 09:31 Completed TROPONIN Q4H Lab 08/25/22 13:15 Ordered TROPONIN Q4H Lab 08/25/22 17:15 Ordered UA W/RFX UR CULTURE Stat Lab 08/25/22 12:27 Completed Medication Summary Generic Name Dose Route Start Last Admin Trade Name Freq PRN Reason Stop Dose Admin Sodium Chloride 1,000 mls @ 100 mls/hr 08/25/22 09:15 08/25/22 11:02 Sodium Chloride 0.9% 1000 Ml IV 09/24/22 09:14 100 mls/hr .Q10H PASCUAL Administration Discontinued Medications Generic Name Dose Route Start Last Admin Trade Name Freq PRN Reason Stop Dose Admin Morphine Sulfate 4 mg 08/25/22 09:09 08/25/22 11:02 Morphine Sulfate 4 Mg/Ml Injection IV 08/25/22 09:10 4 mg STAT ONE Administration Morphine Sulfate Confirm 08/25/22 10:53 Morphine Sulfate 4 Mg/Ml Injection Administered 08/25/22 10:54 Dose 4 mg .ROUTE .STK-MED ONE Ondansetron HCl 4 mg 08/25/22 09:09 08/25/22 11:02 Ondansetron Hcl 4 Mg/2 Ml Vial IV 08/25/22 09:10 4 mg STAT ONE Administration Ondansetron HCl Confirm 08/25/22 10:53 Ondansetron Hcl 4 Mg/2 Ml Vial Administered 08/25/22 10:54 Dose 4 mg .ROUTE .STK-MED ONE Lab/Rad Data: Laboratory Result Diagrams 08/25/22 09:31 08/25/22 09:31 Laboratory Results 08/25/22 08/25/22 08/25/22 Range/Units 12:27 09:31 09:31 WBC (4.0-10.5) x10^3/uL RBC (4.1-5.4) x10^6/uL Hgb (12.0-16.0) g/dL Hct (35-47) % MCV (78-100) fL MCH (26-32) pg MCHC (32-36) g/dL RDW (11.5-14.0) % Plt Count (150-450) x10^3/uL MPV (7.5-11.0) fL Gran % (36.0-66.0) % Immature Gran % (Auto) (0.00-0.4) % Nucleat RBC Rel Count (0.00-0.1) % Eos # (Auto) (0-0.5) x10^3/uL Immature Gran # (Auto) (0.00-0.03) x10^3u/L Absolute Lymphs (auto) (1.0-4.6) x10^3/uL Absolute Monos (auto) (0.0-1.3) x10^3/uL Absolute Nucleated RBC (0.00-0.01) x10^3u/L Lymphocytes % (24.0-44.0) % Monocytes % (0.0-12.0) % Eosinophils % (0.00-5.0) % Basophils % (0.0-0.4) % Absolute Granulocytes (1.4-6.9) x10^3/uL Basophils # (0-0.4) x10^3/uL Sodium 140 (137-145) mmol/L Potassium 3.9 (3.5-5.1) mmol/L Chloride 105 (98-107) mmol/L Carbon Dioxide 23 (22-30) mmol/L Anion Gap 16.3 H (5-15) MEQ/L BUN 7 (7-17) mg/dL Creatinine 0.30 L (0.52-1.04) mg/dL Estimated GFR > 60.0 ML/MIN Glucose 106 (74-106) mg/dL Calcium 9.2 (8.4-10.2) mg/dL Total Bilirubin 0.60 (0.2-1.3) mg/dL AST 50 H (14-36) U/L ALT 42 H (0-35) U/L Alkaline Phosphatase 75 (38-126) U/L Troponin I < 0.012 (0.000-0.034) ng/mL Serum Total Protein 7.9 (6.3-8.2) g/dL Albumin 4.4 (3.5-5.0) g/dL Urine Color Yellow (Yellow) Urine Appearance Clear (Clear) Urine pH 5.5 (4.6-8.0) Ur Specific Slaughter >=1.030 A (1.005-1.030) Urine Protein 30 (Negative) Urine Glucose (UA) Negative (Negative) mg/dL Urine Ketones 15 A (Negative) Urine Blood Negative (Negative) Urine Nitrite Negative (Negative) Urine Bilirubin Negative (Negative) Urine Urobilinogen 0.2 (0.2) mg/dL Ur Leukocyte Esterase Moderate A (Negative) U Hyaline Cast (Auto) 3-5 A (0-2) /LPF Urine Microscopic RBC 0-2 (0-5) /HPF Urine Microscopic WBC 21-50 A (0-5) /HPF Ur Epithelial Cells None Seen (None Seen) /HPF Urine Bacteria None Seen (None Seen) /HPF Urine Culture Reflexed ORDERED SEPARATELY (NO) 08/25/22 Range/Units 09:31 WBC 9.7 (4.0-10.5) x10^3/uL RBC 4.10 (4.1-5.4) x10^6/uL Hgb 12.4 (12.0-16.0) g/dL Hct 40.0 (35-47) % MCV 97.6 (78-100) fL MCH 30.2 (26-32) pg MCHC 31.0 L (32-36) g/dL RDW 15.0 H (11.5-14.0) % Plt Count 332 (150-450) x10^3/uL MPV 8.6 (7.5-11.0) fL Gran % 79.8 H (36.0-66.0) % Immature Gran % (Auto) 0.9 H (0.00-0.4) % Nucleat RBC Rel Count 0.0 (0.00-0.1) % Eos # (Auto) 0.07 (0-0.5) x10^3/uL Immature Gran # (Auto) 0.09 H (0.00-0.03) x10^3u/L Absolute Lymphs (auto) 0.89 L (1.0-4.6) x10^3/uL Absolute Monos (auto) 0.89 (0.0-1.3) x10^3/uL Absolute Nucleated RBC 0.00 (0.00-0.01) x10^3u/L Lymphocytes % 9.2 L (24.0-44.0) % Monocytes % 9.2 (0.0-12.0) % Eosinophils % 0.7 (0.00-5.0) % Basophils % 0.2 (0.0-0.4) % Absolute Granulocytes 7.73 H (1.4-6.9) x10^3/uL Basophils # 0.02 (0-0.4) x10^3/uL Sodium (137-145) mmol/L Potassium (3.5-5.1) mmol/L Chloride (98-107) mmol/L Carbon Dioxide (22-30) mmol/L Anion Gap (5-15) MEQ/L BUN (7-17) mg/dL Creatinine (0.52-1.04) mg/dL Estimated GFR ML/MIN Glucose (74-106) mg/dL Calcium (8.4-10.2) mg/dL Total Bilirubin (0.2-1.3) mg/dL AST (14-36) U/L ALT (0-35) U/L Alkaline Phosphatase (38-126) U/L Troponin I (0.000-0.034) ng/mL Serum Total Protein (6.3-8.2) g/dL Albumin (3.5-5.0) g/dL Urine Color (Yellow) Urine Appearance (Clear) Urine pH (4.6-8.0) Ur Specific Slaughter (1.005-1.030) Urine Protein (Negative) Urine Glucose (UA) (Negative) mg/dL Urine Ketones (Negative) Urine Blood (Negative) Urine Nitrite (Negative) Urine Bilirubin (Negative) Urine Urobilinogen (0.2) mg/dL Ur Leukocyte Esterase (Negative) U Hyaline Cast (Auto) (0-2) /LPF Urine Microscopic RBC (0-5) /HPF Urine Microscopic WBC (0-5) /HPF Ur Epithelial Cells (None Seen) /HPF Urine Bacteria (None Seen) /HPF Urine Culture Reflexed (NO) - Progress Progress: improved, pain not gone completely, re-examined Progress Note: 08/25/22 13:28 This patient has medical issue of moderate complexity. She does have generalized pain she also has a significant urinary tract infection. The work- up was based on the evaluation of the patient's old records, her complaint, her history of present illness and the findings on physical examination. That prompted me to order the patient some intravenous fluids, obtain urinalysis and blood work. The patient's blood work results reveal that the patient has a urinary tract infection. She has no other urgent or emergent issues medically. Patient was advised of the results of the work-up. Based on her work-up results, we formulated a plan which is to have her drink plenty of fluids, take her antibiotics as prescribed and to follow-up with her primary care physician today by phone to make a follow-up appointment and for further evaluation and intervention if necessary. Counseled pt/family regarding: lab results, diagnosis, need for follow-up Medical Desision Making - External Record(s) Reviewed Records reviewed as a part of evaluation & management: Inpatient - Discussion of managment Reviewed:: Test results Agreed on:: Treatment plan, need for follow-up - Risk of complications Low Risk: Low risk of morbidity from additional dx testing or treatment - Departure Departure Disposition: Home Clinical Impression: Generalized pain, UTI (urinary tract infection) Condition: Stable Critical Care Time: No Referrals: JUDY ALVARADO DO [Primary Care Provider] - Follow up/PCP as directed Additional Instructions: Your medications as prescribed. Follow-up with your primary care provider for further evaluation and management of your generalized pain. Prescriptions: Levofloxacin [Levaquin 500 MG Tablet] 500 mg PO DAILY #7 tablet
[2022-08-25] MEDS ORDERED: Zofran 4 MG/2 ML VIAL IV ONE (09:09)
[2022-08-25] MEDS ORDERED: MORPHINE SULFATE 4 MG INJ IV ONE (09:09)
[2022-08-25] MEDS ORDERED: Sodium Chloride 0.9% 1000 ML 1,000 ML IV SCH (09:15)
[2022-08-25 10:00] LABS: Absolute Neutrophil Ct (ANC) 7.73 x10^3/uL (1.4-6.9); BASOPHIL % 0.2 % (0.0-0.4); Basophil (Absolute #) 0.02 x10^3/uL (0-0.4); Eosinophil % 0.7 % (0.00-5.0); Eosinophil (Absolute #) 0.07 x10^3/uL (0-0.5); Hemoglobin 12.4 g/dL (12.0-16.0); IMMATURE GRAN # 0.09 x10^3u/L (0.00-0.03); IMMATURE GRAN % 0.9 % (0.00-0.4); Lymphocyte (Absolute #) 0.89 x10^3/uL (1.0-4.6); Lymphocytes % 9.2 % (24.0-44.0); Mean Cell Volume 97.6 fL (78-100); Mean Corpuscular Hemoglobin 30.2 pg (26-32); Mean Platelet Volume 8.6 fL (7.5-11.0); Monocyte (Absolute #) 0.89 x10^3/uL (0.0-1.3); Monocytes % 9.2 % (0.0-12.0); Neutrophil % 79.8 % (36.0-66.0); Platelet Count 332 x10^3/uL (150-450); White Blood Count 9.7 x10^3/uL (4.0-10.5)
[2022-08-25 10:19] LABS: ALBUMIN 4.4 g/dL (3.5-5.0); ALKALINE PHOSPHATASE 75 U/L (38-126); ANION GAP 16.3 MEQ/L (5-15); BLOOD UREA NITROGEN 7 mg/dL (7-17); CHLORIDE 105 mmol/L (98-107); Calcium 9.2 mg/dL (8.4-10.2); Carbon Dioxide 23 mmol/L (22-30); EST GLOMERULAR FILTRATION RATE > 60.0 ML/MIN; Glucose 106 mg/dL (74-106); Potassium 3.9 mmol/L (3.5-5.1); SGOT/AST 50 U/L (14-36); SGPT/ALT 42 U/L (0-35); SODIUM 140 mmol/L (137-145); Total Protein 7.9 g/dL (6.3-8.2)
[2022-08-25] MEDS ORDERED: MORPHINE SULFATE 4 MG INJ ONE (10:53)
[2022-08-25] MEDS ORDERED: Sodium Chloride 0.9% 1000 ML 1,000 ML ONE (10:53)
[2022-08-25] MEDS ORDERED: Zofran 4 MG/2 ML VIAL ONE (10:53)
[2022-08-25 13:12] LABS: Appearance Clear (Clear); Bacteria None Seen /HPF (None Seen); Bilirubin Negative (Negative); Blood Negative (Negative); Epithelial Cells None Seen /HPF (None Seen); Glucose, Urine Negative (Negative); Ketones 15 (Negative); Leukocyte Esterase Moderate (Negative); Nitrite Negative (Negative); Ph 5.5 (4.6-8.0); Protein,Urine Dip 30 (Negative); RBC 0-2 /HPF (0-5); Specific Gravity >=1.030 (1.005-1.030); Urobilinogen 0.2 mg/dL (0.2); WBC 21-50 /HPF (0-5)
[2022-08-25 13:13] LABS: ADD URINE CULTURE? ORDERED SEPARATELY (NO)
[2022-08-25] MEDS ORDERED: ROCEPHIN 1 Gm-D5w 50 ml Bag** 1 G/50 ML IVPB IV STA (13:31)
[2022-08-25] MEDS ORDERED: ROCEPHIN 1 Gm-D5w 50 ml Bag** 1 G/50 ML IVPB IV ONE (13:34)
[2022-08-25] MEDS ORDERED: LOPRESSOR INJECTION IV ONE ×2 (13:58→14:02)
[2022-08-25] MEDS ORDERED: Hydromorphone 1 mg/ml Injection IV ONE (14:10)
[2022-08-25] MEDS ORDERED: Hydromorphone 1 mg/ml Injection ONE (14:12)
[2022-08-25] MEDS ORDERED: TYLENOL 325 MG PO ONE (15:56)
[2022-08-25] MEDS ORDERED: TYLENOL 325 MG ONE (16:11)
--- NOTE | 2022-08-25 16:26 | XRAY ---
Indication: Elevated d-dimer. Multiple contiguous axial images obtained through the chest using 80 cc Isovue 370 contrast and PE protocol. Comparison: CT chest without contrast July 24, 2019. Adequate opacification of the pulmonary arteries. No pulmonary embolus. Heart not enlarged again with coronary calcifications. 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 No pathologic mediastinal/hilar lymphadenopathy. Stable distal paraesophageal surgical clips. Lungs again demonstrates mild bilateral dependent atelectasis. No suspicious pulmonary mass/nodule, infiltrate, effusion, or pneumothorax. Bony thorax intact again with osteopenia, mild degenerative changes throughout spine, old right posterior rib fractures, and old left humerus fracture. Limited upper abdomen again demonstrates gastric bypass surgery. Impression: 1. Negative pulmonary embolus. No new/acute cardiopulmonary abnormalities. 2. Again chronic bony findings and postsurgical changes.
[2022-08-25 18:01] LABS: INFLUENZA A NEGATIVE (NEGATIVE); INFLUENZA B NEGATIVE (NEGATIVE); RESPIRATORY SYNCTIAL VIRUS NEGATIVE (Negative); SARS-CoV-2 Xpert Express NEGATIVE (NEGATIVE)
[2022-08-25] MEDS: Sodium Chloride 0.9% 1000 ML 1,000 ML IV SCH (18:26)
[2022-08-25] MEDS: Hydromorphone 1 mg/ml Injection IV PRN ×2 (18:27→22:40)
[2022-08-25] MEDS: Advair Hfa 115/21 Common canister IH SCH (18:30)
[2022-08-25] MEDS ORDERED: VENTOLIN COMMON CANISTER IH PRN (18:59)
[2022-08-25] MEDS: Robaxin PO SCH (22:56)
[2022-08-26] MEDS: TYLENOL 325 MG PO PRN ×2 (03:55→11:16)
[2022-08-26] MEDS: Hydromorphone 1 mg/ml Injection IV PRN ×4 (04:20→19:06)
[2022-08-26 04:56] LABS: Absolute Neutrophil Ct (ANC) 7.93 x10^3/uL (1.4-6.9); BASOPHIL % 0.3 % (0.0-0.4); Basophil (Absolute #) 0.03 x10^3/uL (0-0.4); Eosinophil % 0.1 % (0.00-5.0); Eosinophil (Absolute #) 0.01 x10^3/uL (0-0.5); Hematocrit 34.2 % (35-47); Hemoglobin 10.6 g/dL (12.0-16.0); IMMATURE GRAN # 0.11 x10^3u/L (0.00-0.03); Lymphocyte (Absolute #) 1.24 x10^3/uL (1.0-4.6); Lymphocytes % 11.6 % (24.0-44.0); Mean Cell Volume 96.6 fL (78-100); Mean Corpuscular Hemoglobin 29.9 pg (26-32); Mean Platelet Volume 8.9 fL (7.5-11.0); Monocyte (Absolute #) 1.37 x10^3/uL (0.0-1.3); Monocytes % 12.8 % (0.0-12.0); Neutrophil % 74.2 % (36.0-66.0); Platelet Count 261 x10^3/uL (150-450); Red Blood Count 3.54 x10^6/uL (4.1-5.4); Red Cell Distribution Width 15.2 % (11.5-14.0); White Blood Count 10.7 x10^3/uL (4.0-10.5)
[2022-08-26 05:11] LABS: ALBUMIN 3.5 g/dL (3.5-5.0); ALKALINE PHOSPHATASE 64 U/L (38-126); ANION GAP 9.9 MEQ/L (5-15); BLOOD UREA NITROGEN 4 mg/dL (7-17); CHLORIDE 104 mmol/L (98-107); Calcium 7.6 mg/dL (8.4-10.2); Carbon Dioxide 20 mmol/L (22-30); Creatinine 1 0.25 mg/dL (0.52-1.04); EST GLOMERULAR FILTRATION RATE > 60.0 ML/MIN; Glucose 99 mg/dL (74-106); Potassium 3.4 mmol/L (3.5-5.1); SGOT/AST 38 U/L (14-36); SGPT/ALT 36 U/L (0-35); SODIUM 130 mmol/L (137-145); Total Protein 6.6 g/dL (6.3-8.2)
[2022-08-26] MEDS: Advair Hfa 115/21 Common canister IH SCH ×2 (07:05→18:58)
[2022-08-26] MEDS: Robaxin PO SCH ×2 (09:28→14:58)
[2022-08-26] MEDS: Sodium Chloride 0.9% 1000 ML 1,000 ML IV SCH (09:28)
[2022-08-26] MEDS: ROCEPHIN 1 Gm-D5w 50 ml Bag** 1 G/50 ML IVPB IV SCH (09:28)
--- NOTE | 2022-08-26 13:18 | PCM.HP ---
History of Present Illness - Chief Complaint Chief Complaint: UTI History of Present Illness: is a 67 year old female patient of mine who presented to ER by EMS c/o nausea and loss of appetite generalized weakness and low abdominal pain .Patient has multiple medical issues including HTN,COPD,sleep apnea,Liver dz from chronic use of pain meds,OA,DDD,fibromyalgia,osteoporosis ,curvature of spine,Seizure,Hx,Macular degeneration,GERD. ER evaluation dg UTI and volume depletion. Patient was admitted to [facility] and started on IV antibiotics and IV fluids. - Review of Systems Constitutional: Lethargy Eyes: No Symptoms Ears, Nose, & Throat: No Symptoms Respiratory: No Symptoms Cardiac: No Symptoms Abdominal/Gastrointestinal: Abdominal Pain (low), Nausea, Appetite Changes Genitourinary Symptoms: Frequency Musculoskeletal: Arthralgias, Back Pain (chronic), Myalgias Skin: No Symptoms Psychological: Anxiety, Depression Endocrine: No Symptoms Hematologic/Lymphatic: Anemia Medications & Allergies Home Medications: Home Medication List RX: Dexlansoprazole [Dexilant] 60 mg PO DAILY 08/08/16 [History Confirmed 08/25/22] RX: Metoprolol Succinate [Toprol Xl] 25 mg PO DAILY 01/09/18 [History Confirmed 08/25/22] RX: Albuterol 2 puffs IH Q4H PRN PRN 08/21/19 [History Confirmed 08/25/22] RX: Escitalopram Oxalate [Lexapro] 10 mg PO DAILY 07/17/20 [History Confirmed 08/25/22] RX: Meloxicam 7.5 mg PO DAILY 07/17/20 [History Confirmed 08/25/22] RX: Cyanocobalamin 500 Mcg [Vitamin B-12 500 MCG] 1,000 mcg PO DAILY 09/25 [History Confirmed 08/25/22] RX: Fluticasone/Umeclidin/Vilanter [Trelegy Ellipta 100-62.5-25] 1 puff IH DAILY 08/08/22 [History Confirmed 08/25/22] RX: Mvit-Mins/Folic Acid/Soy Isofl [One-A-Day Menopause Formula Tb] 1 each PO BID 08/08/22 [History Confirmed 08/25/22] RX: Ondansetron [Ondansetron Odt] 8 mg PO Q6H PRN 08/08/22 [History Confirmed 08/25/22] RX: Vit A/Vit C/Vit E/Zinc/Copper [Preservision Areds Softgel] 1 each PO BID 08/08/22 [History Confirmed 08/25/22] RX: methocarbamoL [Methocarbamol] 500 mg PO TID 08/08/22 [History Confirmed 08/25/22] Nitrofurantoin Monohyd/M-Cryst [Nitrofurantoin [place]-Mcr 100 mg] 100 mg PO BID 08/25/22 [History Confirmed 08/25/22] RX: Metoclopramide HCl 5 mg PO BIDAC 08/25/22 [History Confirmed 08/25/22] Allergies/Adverse Reactions: Allergies Allergy/AdvReac Type Severity Reaction Status Date / Time amitriptyline [From Elavil] Allergy Severe aggitation/ Verified 08/25/22 08:51 angry duloxetine [From Cymbalta] Allergy Severe Nausea and Verified 08/25/22 08:51 Vomiting - Past Medical History Past Medical History: Yes Neurological History: Seizures ENT History: No Pertinent History, Macular Degeneration, Other Cardiac History: Hypertension Respiratory History: COPD, Sleep Apnea Endocrine Medical History: Liver Disease Musculoskelatal History: Arthritis, Degenerative Disk Disease, Fibromyalgia, Fractures, Osteoporosis GI Medical History: GERD History: No Pertinent History, Other Pyscho-Social History: Depression Reproductive Disorders: No Pertinent History Comment: Partial seizures, Brain bleed from fall on march - Past Surgical History Past Surgical History: Yes Neuro Surgical History: No Pertinent History Cardiac History: No Pertinent History Respiratory Surgery: No Pertinent History GI Surgical History: Cholecystectomy, Other Genitourinary Surgical Hx: No Pertinent History Musculskeletal Surgical Hx: Joint Replacement, Orthopedic Surgery Female Surgical History: Tubal Ligation Other Surgical History: gastroplasty, right shoulder, bilateral hip/knee surgeries, colonoscopy, LT and RT FOOT - Social History Smoking Status: Former smoker How long have you smoked: 30 years Exposure to second hand smoke: No Alcohol: None Drug Use: none Significant Family History: heart disease, hypertension - Physical Exam Vital Signs: Vital Signs - 24 hr Temp Pulse Resp BP Pulse Ox 08/26/22 11:22 100.7 F 122 H 16 132/61 97 08/26/22 07:18 98.0 F 118 H 16 144/67 95 08/26/22 07:06 112 H 18 97 08/26/22 04:00 98.9 F 134 H 18 104/69 93 L 08/25/22 23:02 99.6 F 126 H 126/67 96 08/25/22 21:54 99.6 F 126 H 126/67 96 08/25/22 19:06 98 08/25/22 18:40 98.9 F 124 H 18 130/60 98 08/25/22 18:30 119 H 20 98 08/25/22 18:00 120 H 16 92 L 08/25/22 17:00 120 H 22 92 L 08/25/22 15:53 101.2 F 96 08/25/22 14:00 120 H 16 147/71 96 General Appearance: lethargy Neurologic Exam: oriented x 3, cooperative (decreased affect) Eye Exam: other (nonicteric) Ears, Nose, Throat Exam: normal ENT inspection, moist mucous membranes Neck Exam: normal inspection Respiratory Exam: diminished breath sounds (bases) Cardiovascular Exam: regular rate/rhythm Gastrointestinal/Abdomen Exam: soft, tenderness (LLQ) Pelvic Exam: not done Rectal Exam: not done Back Exam: muscle spasm Extremity Exam: normal inspection Skin Exam: warm, diaphoresis, pale Results - Labs Lab/Micro Results: Lab Results-Last 24 Hours 08/25/22 08/25/22 08/25/22 Range/Units 13:55 13:55 16:55 WBC (4.0-10.5) x10^3/uL RBC (4.1-5.4) x10^6/uL Hgb (12.0-16.0) g/dL Hct (35-47) % MCV (78-100) fL MCH (26-32) pg MCHC (32-36) g/dL RDW (11.5-14.0) % Plt Count (150-450) x10^3/uL MPV (7.5-11.0) fL Gran % (36.0-66.0) % Immature Gran % (Auto) (0.00-0.4) % Nucleat RBC Rel Count (0.00-0.1) % Eos # (Auto) (0-0.5) x10^3/uL Immature Gran # (Auto) (0.00-0.03) x10^3u/L Absolute Lymphs (auto) (1.0-4.6) x10^3/uL Absolute Monos (auto) (0.0-1.3) x10^3/uL Absolute Nucleated RBC (0.00-0.01) x10^3u/L Lymphocytes % (24.0-44.0) % Monocytes % (0.0-12.0) % Eosinophils % (0.00-5.0) % Basophils % (0.0-0.4) % Absolute Granulocytes (1.4-6.9) x10^3/uL Basophils # (0-0.4) x10^3/uL D-Dimer 0.55 H (0.0-0.50) mg/L Sodium (137-145) mmol/L Potassium (3.5-5.1) mmol/L Chloride (98-107) mmol/L Carbon Dioxide (22-30) mmol/L Anion Gap (5-15) MEQ/L BUN (7-17) mg/dL Creatinine (0.52-1.04) mg/dL Estimated GFR ML/MIN Glucose (74-106) mg/dL Calcium (8.4-10.2) mg/dL Total Bilirubin (0.2-1.3) mg/dL AST (14-36) U/L ALT (0-35) U/L Alkaline Phosphatase (38-126) U/L Troponin I < 0.012 0.013 (0.000-0.034) ng/mL Serum Total Protein (6.3-8.2) g/dL Albumin (3.5-5.0) g/dL Influenza Type A Ag (NEGATIVE) Influenza Type B Ag (NEGATIVE) RSV (PCR) (Negative) SARS-CoV-2 (PCR) (NEGATIVE) 08/25/22 08/26/22 08/26/22 Range/Units Unknown 04:45 04:45 WBC 10.7 H (4.0-10.5) x10^3/uL RBC 3.54 L (4.1-5.4) x10^6/uL Hgb 10.6 L (12.0-16.0) g/dL Hct 34.2 L (35-47) % MCV 96.6 (78-100) fL MCH 29.9 (26-32) pg MCHC 31.0 L (32-36) g/dL RDW 15.2 H (11.5-14.0) % Plt Count 261 (150-450) x10^3/uL MPV 8.9 (7.5-11.0) fL Gran % 74.2 H (36.0-66.0) % Immature Gran % (Auto) 1.0 H (0.00-0.4) % Nucleat RBC Rel Count 0.0 (0.00-0.1) % Eos # (Auto) 0.01 (0-0.5) x10^3/uL Immature Gran # (Auto) 0.11 H (0.00-0.03) x10^3u/L Absolute Lymphs (auto) 1.24 (1.0-4.6) x10^3/uL Absolute Monos (auto) 1.37 H (0.0-1.3) x10^3/uL Absolute Nucleated RBC 0.00 (0.00-0.01) x10^3u/L Lymphocytes % 11.6 L (24.0-44.0) % Monocytes % 12.8 H (0.0-12.0) % Eosinophils % 0.1 (0.00-5.0) % Basophils % 0.3 (0.0-0.4) % Absolute Granulocytes 7.93 H (1.4-6.9) x10^3/uL Basophils # 0.03 (0-0.4) x10^3/uL D-Dimer (0.0-0.50) mg/L Sodium 130 L D (137-145) mmol/L Potassium 3.4 L (3.5-5.1) mmol/L Chloride 104 (98-107) mmol/L Carbon Dioxide 20 L (22-30) mmol/L Anion Gap 9.9 (5-15) MEQ/L BUN 4 L (7-17) mg/dL Creatinine 0.25 L (0.52-1.04) mg/dL Estimated GFR > 60.0 ML/MIN Glucose 99 (74-106) mg/dL Calcium 7.6 L D (8.4-10.2) mg/dL Total Bilirubin 0.50 (0.2-1.3) mg/dL AST 38 H (14-36) U/L ALT 36 H (0-35) U/L Alkaline Phosphatase 64 (38-126) U/L Troponin I (0.000-0.034) ng/mL Serum Total Protein 6.6 (6.3-8.2) g/dL Albumin 3.5 (3.5-5.0) g/dL Influenza Type A Ag NEGATIVE (NEGATIVE) Influenza Type B Ag NEGATIVE (NEGATIVE) RSV (PCR) NEGATIVE (Negative) SARS-CoV-2 (PCR) NEGATIVE (NEGATIVE) Microbiology 08/25/22 12:54 Urine Culture - Preliminary Catherized NO GROWTH TO DATE - Radiology Impressions Radiology Exams & Impressions: Radiology Procedures Category Date Time Status CHEST WITH CONTRAST [CT] Stat Exams 08/25/22 15:27 Completed - Other Procedures and Tests Respiratory Therapy 08/25/22 18:58 Respiratory Therapy Assessment DAILY Assessment/Plan (1) UTI (urinary tract infection) Status: Acute Code(s): N39.0 - URINARY TRACT INFECTION, SITE NOT SPECIFIED (2) Volume depletion Status: Acute Code(s): E86.9 - VOLUME DEPLETION, UNSPECIFIED
[2022-08-26] MEDS ORDERED: solu-MEDROL 80 MG, Sterile H2O 10 ml 2 ML IV ONE ×2 (14:47)
[2022-08-26] MEDS ORDERED: ONDANSETRON 8 MG PO PRN (15:39)
[2022-08-26] MEDS ORDERED: NON-FORMULARY ITEM (Albuterol [Albuterol] 17 GM Aerosol) IH PRN (15:39)
[2022-08-26] MEDS ORDERED: ZOFRAN ODT 4 MG PO PRN (16:09)
[2022-08-26] MEDS ORDERED: MEDICATION INTERVENTION MC SCH (16:15)
[2022-08-26] MEDS: Reglan 10 MG PO SCH (16:17)
[2022-08-26] MEDS: Toprol-Xl 25MG Tablets PO SCH (16:17)
[2022-08-26] MEDS: Lexapro PO SCH (16:17)
[2022-08-26] MEDS: MELOXICAM PO SCH (16:17)
[2022-08-26] MEDS ORDERED: NON-FORMULARY ITEM (Metoclopramide Hcl [Metoclopramide Hcl] 5 MG Tablet) PO SCH (16:30)
--- NOTE | 2022-08-26 16:36 | XRAY ---
Indication: Pain and erythema. Comparison: None 2 view right elbow demonstrates osteopenia. No other bony, articular, or soft tissue abnormalities.
--- NOTE | 2022-08-26 16:38 | XRAY ---
Indication: Pain and erythema. Comparison: None 2 view right wrist demonstrates osteopenia. No other bony, articular, or soft tissue abnormalities.
[2022-08-26] MEDS ORDERED: Sodium Chloride 0.9% W/ 20 mEq KCl/LITER 1,000 ML IV ONE (17:33)
[2022-08-26] MEDS: Sodium Chloride 0.9% W/ 20 mEq KCl/LITER 1,000 ML IV SCH (17:33)
[2022-08-26] MEDS ORDERED: [UNRECOGNIZED DRUG - OTHER] PO SCH (22:00)
[2022-08-26] MEDS ORDERED: FOLIC ACID PO SCH (22:00)
[2022-08-26] MEDS ORDERED: NON-FORMULARY ITEM (Vit A/Vit C/Vit E/Zinc/Copper [Preservision Areds Softgel] 1 EACH Caps PO SCH (22:00)
[2022-08-26] MEDS: solu-MEDROL 80 MG, Sterile H2O 10 ml 2 ML IV SCH ×2 (22:03)
[2022-08-27] MEDS: Hydromorphone 1 mg/ml Injection IV PRN ×4 (01:44→19:03)
[2022-08-27] MEDS: Zofran 4 MG/2 ML VIAL IV PRN ×3 (01:57→19:02)
[2022-08-27] MEDS: Sodium Chloride 0.9% W/ 20 mEq KCl/LITER 1,000 ML IV SCH ×3 (02:36→21:16)
[2022-08-27] MEDS: TYLENOL 325 MG PO PRN ×2 (04:52→16:34)
[2022-08-27 04:58] LABS: Absolute Neutrophil Ct (ANC) 10.67 x10^3/uL (1.4-6.9); BASOPHIL % 0.2 % (0.0-0.4); Basophil (Absolute #) 0.02 x10^3/uL (0-0.4); Eosinophil (Absolute #) 0 x10^3/uL (0-0.5); Hematocrit 30.9 % (35-47); IMMATURE GRAN # 0.15 x10^3u/L (0.00-0.03); IMMATURE GRAN % 1.2 % (0.00-0.4); Lymphocyte (Absolute #) 0.64 x10^3/uL (1.0-4.6); Lymphocytes % 5.2 % (24.0-44.0); Mean Cell Volume 93.4 fL (78-100); Mean Corpuscular Hemoglobin 30.2 pg (26-32); Mean Corpuscular Hgb Concent. 32.4 g/dL (32-36); Mean Platelet Volume 8.6 fL (7.5-11.0); Monocyte (Absolute #) 0.74 x10^3/uL (0.0-1.3); Monocytes % 6.1 % (0.0-12.0); Neutrophil % 87.3 % (36.0-66.0); Platelet Count 294 x10^3/uL (150-450); Red Blood Count 3.31 x10^6/uL (4.1-5.4); Red Cell Distribution Width 15.1 % (11.5-14.0); White Blood Count 12.2 x10^3/uL (4.0-10.5)
[2022-08-27 05:26] LABS: ALBUMIN 3.2 g/dL (3.5-5.0); ALKALINE PHOSPHATASE 90 U/L (38-126); ANION GAP 11.7 MEQ/L (5-15); BLOOD UREA NITROGEN 6 mg/dL (7-17); CHLORIDE 103 mmol/L (98-107); Calcium 7.5 mg/dL (8.4-10.2); Carbon Dioxide 23 mmol/L (22-30); Creatinine 1 0.24 mg/dL (0.52-1.04); EST GLOMERULAR FILTRATION RATE > 60.0 ML/MIN; Glucose 139 mg/dL (74-106); Potassium 3.7 mmol/L (3.5-5.1); SGOT/AST 63 U/L (14-36); SGPT/ALT 52 U/L (0-35); SODIUM 134 mmol/L (137-145); Total Protein 6.3 g/dL (6.3-8.2)
[2022-08-27] MEDS: Advair Hfa 115/21 Common canister IH SCH ×2 (06:52→19:42)
[2022-08-27] MEDS: THERAGRAN MULTIVITAMIN PO SCH ×3 (07:08→21:02)
[2022-08-27] MEDS: Robaxin PO SCH ×4 (07:08→21:02)
[2022-08-27] MEDS: Ocuvite Tablet PO SCH ×3 (07:08→21:02)
[2022-08-27] MEDS: solu-MEDROL 80 MG, Sterile H2O 10 ml 2 ML IV SCH ×2 (07:11)
[2022-08-27] MEDS: Reglan 10 MG PO SCH ×3 (08:09→16:30)
[2022-08-27] MEDS: Toprol-Xl 25MG Tablets PO SCH (09:39)
[2022-08-27] MEDS: ROCEPHIN 1 Gm-D5w 50 ml Bag** 1 G/50 ML IVPB IV SCH (09:39)
[2022-08-27] MEDS: Vitamin B-12 500 MCG PO SCH (09:39)
[2022-08-27] MEDS: MELOXICAM PO SCH (09:40)
[2022-08-27] MEDS: Lexapro PO SCH (09:40)
[2022-08-27] MEDS ORDERED: DEXLANSOPRAZOLE 60 MG PO SCH (10:00)
[2022-08-27] MEDS ORDERED: Protonix 40MG Tablet PO SCH (10:00)
[2022-08-27] MEDS ORDERED: Toprol Xl 50 MG PO SCH (10:00)
[2022-08-27] MEDS ORDERED: NON-FORMULARY ITEM (Fluticasone/Umeclidin/Vilanter [Trelegy Ellipta 100-62.5-25] 1 EACH Bl IH SCH (10:00)
[2022-08-27] MEDS ORDERED: solu-MEDROL 80 MG, Sterile H2O 10 ml 2 ML IV SCH ×2 (14:00)
[2022-08-27] MEDS ORDERED: ZOFRAN ODT 4 MG PO PRN (17:30)
[2022-08-28] MEDS: Hydromorphone 1 mg/ml Injection IV PRN ×5 (00:41→20:08)
[2022-08-28] MEDS: Zofran 4 MG/2 ML VIAL IV PRN ×3 (00:42→20:08)
[2022-08-28 05:12] LABS: Hematocrit 27.2 % (35-47); Hemoglobin 8.7 g/dL (12.0-16.0); Mean Cell Volume 94.4 fL (78-100); Mean Corpuscular Hemoglobin 30.2 pg (26-32); Mean Platelet Volume 8.9 fL (7.5-11.0); Platelet Count 269 x10^3/uL (150-450); Red Blood Count 2.88 x10^6/uL (4.1-5.4); Red Cell Distribution Width 14.6 % (11.5-14.0)
[2022-08-28 05:45] LABS: ANION GAP 9.1 MEQ/L (5-15); BLOOD UREA NITROGEN 9 mg/dL (7-17); CHLORIDE 107 mmol/L (98-107); Calcium 7.2 mg/dL (8.4-10.2); Carbon Dioxide 24 mmol/L (22-30); Creatinine 1 0.27 mg/dL (0.52-1.04); EST GLOMERULAR FILTRATION RATE > 60.0 ML/MIN; Glucose 118 mg/dL (74-106); Potassium 4.1 mmol/L (3.5-5.1); SODIUM 135 mmol/L (137-145)
[2022-08-28] MEDS: Advair Hfa 115/21 Common canister IH SCH ×2 (07:11→19:45)
[2022-08-28] MEDS: DELTASONE 20 MG PO SCH (07:31)
[2022-08-28] MEDS: MELOXICAM PO SCH (07:31)
[2022-08-28] MEDS: Vitamin B-12 500 MCG PO SCH (07:31)
[2022-08-28] MEDS: Lexapro PO SCH (07:31)
[2022-08-28] MEDS: ROCEPHIN 1 Gm-D5w 50 ml Bag** 1 G/50 ML IVPB IV SCH (07:31)
[2022-08-28] MEDS: Toprol-Xl 25MG Tablets PO SCH (07:31)
[2022-08-28] MEDS: THERAGRAN MULTIVITAMIN PO SCH ×2 (07:31→22:23)
[2022-08-28] MEDS: TYLENOL 325 MG PO PRN ×2 (07:31→16:30)
[2022-08-28] MEDS: Robaxin PO SCH ×3 (07:32→22:24)
[2022-08-28] MEDS: Ocuvite Tablet PO SCH ×2 (07:32→22:23)
[2022-08-28] MEDS: Reglan 10 MG PO SCH ×2 (07:32→16:31)
[2022-08-28] MEDS: Sodium Chloride 0.9% W/ 20 mEq KCl/LITER 1,000 ML IV SCH (07:32)
[2022-08-28] MEDS: PATIENT OWN MEDICATION PO SCH (08:09)
[2022-08-28] MEDS ORDERED: NON-FORMULARY ITEM PO SCH ×2 (10:00)
[2022-08-28] MEDS ORDERED: PATIENT OWN MEDICATION PO SCH (10:00)
[2022-08-29] MEDS: Zofran 4 MG/2 ML VIAL IV PRN (02:30)
[2022-08-29] MEDS: Hydromorphone 1 mg/ml Injection IV PRN (02:30)
[2022-08-29 04:58] LABS: Absolute Neutrophil Ct (ANC) 6.63 x10^3/uL (1.4-6.9); BASOPHIL % 0.2 % (0.0-0.4); Basophil (Absolute #) 0.02 x10^3/uL (0-0.4); Eosinophil % 0.3 % (0.00-5.0); Eosinophil (Absolute #) 0.03 x10^3/uL (0-0.5); Hematocrit 28.9 % (35-47); Hemoglobin 9.4 g/dL (12.0-16.0); IMMATURE GRAN # 0.09 x10^3u/L (0.00-0.03); Lymphocyte (Absolute #) 1.62 x10^3/uL (1.0-4.6); Lymphocytes % 17.9 % (24.0-44.0); Mean Cell Volume 93.8 fL (78-100); Mean Corpuscular Hemoglobin 30.5 pg (26-32); Mean Corpuscular Hgb Concent. 32.5 g/dL (32-36); Mean Platelet Volume 8.9 fL (7.5-11.0); Monocyte (Absolute #) 0.66 x10^3/uL (0.0-1.3); Monocytes % 7.3 % (0.0-12.0); Neutrophil % 73.3 % (36.0-66.0); Platelet Count 298 x10^3/uL (150-450); Red Blood Count 3.08 x10^6/uL (4.1-5.4); Red Cell Distribution Width 15.1 % (11.5-14.0); White Blood Count 9.1 x10^3/uL (4.0-10.5)
[2022-08-29] MEDS: TYLENOL 325 MG PO PRN (05:11)
[2022-08-29] MEDS: Advair Hfa 115/21 Common canister IH SCH (06:50)
[2022-08-29] MEDS ORDERED: NORCO 7.5/325 MG TAB PO PRN (08:11)
[2022-08-29] MEDS: Reglan 10 MG PO SCH (08:29)
[2022-08-29] MEDS: THERAGRAN MULTIVITAMIN PO SCH (08:31)
[2022-08-29] MEDS: Lexapro PO SCH (08:31)
[2022-08-29] MEDS: Vitamin B-12 500 MCG PO SCH (08:31)
[2022-08-29] MEDS: MELOXICAM PO SCH (08:31)
[2022-08-29] MEDS: ROCEPHIN 1 Gm-D5w 50 ml Bag** 1 G/50 ML IVPB IV SCH (08:31)
[2022-08-29] MEDS: Ocuvite Tablet PO SCH (08:31)
[2022-08-29] MEDS: Toprol-Xl 25MG Tablets PO SCH (08:31)
[2022-08-29] MEDS: DELTASONE 20 MG PO SCH (08:31)
[2022-08-29] MEDS: Robaxin PO SCH (08:32)
[2022-08-29] MEDS: PATIENT OWN MEDICATION PO SCH (08:39)
--- NOTE | 2022-08-29 11:14 | XRAY ---
Indication: Pain and swelling. Two-dimensional sonogram and color Doppler imaging of the major venous vessels of the right upper extremity performed. Comparison: None Visualized right internal jugular, subclavian, axillary, brachial, basilic, cephalic, radial, and ulnar veins are negative for thrombosis. Veins demonstrate normal compressibility and normal venous waveforms. Impression: Right upper extremity negative for venous thrombosis.
[2022-08-29 11:41] VITALS: BP 131/77; PULSE 75; O2SAT 96
--- NOTE | 2022-09-09 21:24 | PCM.DS ---
Discharge Summary Date of Admission: 08/26/22 13:17 Date of Discharge: 08/29/2022 Admitting Physician: PAMELA CABEZAS Primary Care Provider: JUDY WALDEN DO Allergies Allergies amitriptyline [From Elavil] Allergy (Severe, Verified 08/25/22 08:51) aggitation/angry duloxetine [From Cymbalta] Allergy (Severe, Verified 08/25/22 08:51) Nausea and Vomiting Hospital Summary - Hospital Course Hospital Course: Pt. admitted for generalized pain and UTI, uti treated with antibiotic, further evaluation of pain found osteoarthritis and no other etiology, uti had resolved and with no further obvious need for hospitalization pt will be discharged to home with home health services for aid, pt. will follow up with pcp for further evaluation and treatment of pain syndrome. - Vitals & Intake/Output Vital Signs: Vital Signs Temperature 97.8 F 08/29/22 11:40 Pulse Rate 75 08/29/22 11:40 Respiratory Rate 16 08/29/22 11:40 Blood Pressure 131/77 08/29/22 11:40 O2 Sat by Pulse Oximetry 96 08/29/22 11:40 - Lab Result Diagrams: 08/29/22 05:20 08/28/22 05:13 Micro Results-Entire Visit: Microbiology 08/26/22 15:30 Blood Culture Gram Stain - Final Blood Not Reportable Blood Culture - Final NO GROWTH 08/26/22 15:20 Blood Culture Gram Stain - Final Blood Not Reportable Blood Culture - Final NO GROWTH 08/25/22 12:54 Urine Culture - Final Catherized NO GROWTH - Procedures and Test Procedures and Tests throughout Hospitalization: Therapy Orders & Screens 08/25/22 18:58 Respiratory Therapy Assessment DAILY Comment: Diagnosis: UTI 08/25/22 18:59 Respiratory MDI BID Comment: Diagnosis: UTI Discharge Exam General Appearance: no apparent distress, alert Neurologic Exam: alert, oriented x 3, cooperative, normal mood/affect, nml cerebellar function, sensation nml, No motor deficits Eye Exam: PERRL, EOMI, eyes nml inspection Ears, Nose, Throat Exam: normal ENT inspection, pharynx normal, moist mucous membranes Neck Exam: normal inspection, non-tender, supple, full range of motion Respiratory Exam: normal breath sounds, lungs clear, No respiratory distress Cardiovascular Exam: regular rate/rhythm, normal heart sounds Gastrointestinal/Abdomen Exam: soft, No tenderness, No mass Pelvic Exam: deferred Rectal Exam: deferred Back Exam: normal inspection, normal range of motion, No CVA tenderness, No vertebral tenderness Extremity Exam: normal inspection, normal range of motion Skin Exam: normal color, warm, dry Final Diagnosis/Problem List - Final Discharge Diagnosis/Problem (1) Generalized pain Status: Acute Code(s): R52 - PAIN, UNSPECIFIED (2) Intractable pain Status: Acute Code(s): R52 - PAIN, UNSPECIFIED (3) UTI (urinary tract infection) Status: Acute Code(s): N39.0 - URINARY TRACT INFECTION, SITE NOT SPECIFIED - Discharge Discharge Date: 08/29/22 Disposition: HOME HEALTH SERVICE Condition: Stable Prescriptions: No Action Dexlansoprazole [Dexilant] 60 mg PO DAILY Metoprolol Succinate [Toprol Xl] 25 mg PO DAILY Albuterol 2 puffs IH Q4H PRN PRN PRN Reason: Shortness Of Breath Meloxicam 7.5 mg PO DAILY Escitalopram Oxalate [Lexapro] 10 mg PO DAILY Ondansetron [Ondansetron Odt] 8 mg PO Q6H PRN PRN Reason: Nausea Fluticasone/Umeclidin/Vilanter [Trelegy Ellipta 100-62.5-25] 1 puff IH DAILY methocarbamoL [Methocarbamol] 500 mg PO TID Cyanocobalamin 500 Mcg [Vitamin B-12 500 MCG] 1,000 mcg PO DAILY Vit A/Vit C/Vit E/Zinc/Copper [Preservision Areds Softgel] 1 each PO BID Mvit-Mins/Folic Acid/Soy Isofl [One-A-Day Menopause Formula Tb] 1 each PO BID Nitrofurantoin Monohyd/M-Cryst [Nitrofurantoin [place]-Mcr 100 mg] 100 mg PO BID Metoclopramide HCl 5 mg PO BIDAC Instructions: Osteoarthritis (DC) Additional Instructions: 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 YOU WILL NEED TO START THIS TOMORROW DR WALDEN HAS CALLED IN A REFILL ON YOUR TRAMADOL. C HAS BEEN SET UP WITH [facility]. THEY WILL CONTACT YOU TO ARRANGE A VISIT. THEIR PHONE NUMBER IS [phone] Follow up with: JUDY WALDEN DO [Primary Care Provider] - 09/08/22 10:30 am
== END 2022-08-29 12:50 | disposition home health service (06) | DRG 690 ==
LOC: ED 08:38 → MED SURG 18:15 → OBSVTOIN 08-26 13:17
PROVIDERS: ADMIT Family Medicine; ATTEND Family Medicine
DX: N39.0 Urinary tract infection, site not specified (principal); M19.90 Unspecified osteoarthritis, unspecified site; I10 Essential (primary) hypertension; J44.9 Chronic obstructive pulmonary disease, unspecified; Z79.899 Other long term (current) drug therapy; Z20.828 Contact with and (suspected) exposure to other viral communicable diseases
CPT/HCPCS: 0241U; 36410; 36415; 71260; 73070; 73100; 76942; 80048; 80053; 81001; 84484; 84550; 85025; 85027; 85379; 85652; 86430; 87040; 87086; 93005; 93971; 94640; 94760; 96365; 96374; 96375; 99285; G0378; P9612; J0696; J1170; J2270; J2405; J2930; A9270-GY

== ENCOUNTER 2023-07-15 20:05 | Emergency (ER) | payer MEDICARE ==
--- NOTE | 2023-07-15 20:15 | ERPHSYRPT ---
- History of Present Illness Time Seen by Provider: 07/15/23 20:15 Source: patient, family Exam Limitations: no limitations Physician History: This is a 68-year-old white female patient of Dr. Styles who presents with 1 day history of fatigue, weakness, shortness of breath, fevers, chills, body aches, mild cough and sore throat. Patient was having body aches today and took tramadol at approximately 1600 today. Patient denies chest pain. She denies abdominal pain. She has a history of seizures, hypertension, COPD, degenerative disc disease, arthritis, fibromyalgia's, chronic liver disease and gastroesophageal reflux disease. Timing/Duration: yesterday Severity: mild (To moderate) Associated Symptoms: nausea, vomiting, shortness of breath, cough, chills, fever, malaise, weakness, No abdominal pain, No heartburn, No diaphoresis, No chest pain Allergies/Adverse Reactions: amitriptyline [From Elavil] Allergy (Severe, Verified 07/15/23 20:19) aggitation/angry duloxetine [From Cymbalta] Allergy (Severe, Verified 07/15/23 20:19) Nausea and Vomiting Home Medications: Dexlansoprazole [Dexilant] 60 mg PO DAILY 08/08/16 [History] Metoprolol Succinate [Toprol Xl] 25 mg PO DAILY 01/09/18 [History] Albuterol 2 puffs IH Q4H PRN PRN 08/21/19 [History] Escitalopram Oxalate [Lexapro] 10 mg PO DAILY 07/17/20 [History] Meloxicam 7.5 mg PO DAILY 07/17/20 [History] Mvit-Mins/Folic Acid/Soy Isofl [One-A-Day Menopause Formula Tb] 1 each PO BID 08/08/22 [History] Ondansetron [Ondansetron Odt] 8 mg PO Q6H PRN 08/08/22 [History] methocarbamoL [Methocarbamol] 500 mg PO TID 08/08/22 [History] Metoclopramide HCl 5 mg PO BIDAC 08/25/22 [History] Cholecalciferol (Vitamin D3) [Vitamin D] 1 tablet PO DAILY 04/28/23 [History] Tramadol HCl 50 mg [Ultram 50 mg] 50 mg PO TID 04/28/23 [History] Tramadol HCl [Conzip] 200 mg PO DAILY 04/28/23 [History] Hx Tetanus, Diphtheria Vaccination/Date Given: Yes Hx Influenza Vaccination/Date Given: Yes Hx Pneumococcal Vaccination/Date Given: No Travel Risk - International Travel Have you traveled outside of the country in past 3 weeks: No - Coronavirus Screening Are you exhibiting any of the following symptoms?: Yes Symptoms: Fever, Cough: New Onset, Vomiting/Diarrhea, Headaches/Body Aches/Fatigue Close contact with a COVID-19 positive Pt in past 14-21 Days: No - Vaccine Status Have you recieved a Covid-19 vaccination: No - Review of Systems Constitutional: Fever, Chills Eyes: No Symptoms Ears, Nose, & Throat: No Symptoms Respiratory: Cough Cardiac: No Symptoms Abdominal/Gastrointestinal: Nausea, Vomiting, Diarrhea, No Abdominal Pain Genitourinary Symptoms: No Symptoms Musculoskeletal: Arthralgias, Myalgias Skin: No Symptoms Neurological: No Symptoms Psychological: No Symptoms Endocrine: No Symptoms Hematologic/Lymphatic: No Symptoms Immunological/Allergic: No Symptoms All Other Systems: Reviewed and Negative - Past Medical History Pertinent Past Medical History: Yes Neurological History: Seizures ENT History: No Pertinent History, Macular Degeneration, Other Cardiac History: Hypertension Respiratory History: COPD, Sleep Apnea Endocrine Medical History: Liver Disease Musculoskeletal History: Arthritis, Degenerative Disk Disease, Fibromyalgia, Fractures, Osteoporosis GI Medical History: GERD History: No Pertinent History, Other Psycho-Social History: Depression Female Reproductive Disorders: No Pertinent History Other Medical History: Partial seizures, Brain bleed from fall on march - Past Surgical History Past Surgical History: Yes Neuro Surgical History: No Pertinent History Cardiac: No Pertinent History Respiratory: No Pertinent History Gastrointestinal: Cholecystectomy, Other Genitourinary: No Pertinent History Musculoskeletal: Joint Replacement, Orthopedic Surgery Female Surgical History: Tubal Ligation Other Surgical History: gastroplasty, right shoulder, bilateral hip/knee surgeries, colonoscopy, LT and RT FOOT - Social History Smoking Status: Former smoker How long have you smoked: 30 years Exposure to second hand smoke: No Alcohol Use: None Drug Use: none Patient Lives Alone: No Significant Family History: heart disease, hypertension - Nursing Vital Signs Nursing Vital Signs: Initial Vital Signs Temperature 101.4 F 07/15/23 20:05 Pulse Rate 118 H 07/15/23 20:05 Respiratory Rate 18 01/10/24 20:05 Blood Pressure 124/78 07/15/23 20:05 O2 Sat by Pulse Oximetry 98 07/15/23 20:05 Pain Scale Pain Intensity 6 - Physical Exam General Appearance: no apparent distress, alert, anxiety, thin Eye Exam: PERRL/EOMI, eyes nml inspection Ears, Nose, Throat Exam: normal ENT inspection, moist mucous membranes Neck Exam: normal inspection, non-tender, supple, full range of motion Respiratory Exam: normal breath sounds, lungs clear, airway intact, No chest tenderness, No respiratory distress Cardiovascular Exam: normal peripheral pulses, tachycardia (Most likely secondary to fever) Gastrointestinal/Abdomen Exam: soft, normal bowel sounds, No tenderness Pelvic Exam: not done Rectal Exam: not done Back Exam: normal inspection, normal range of motion, No CVA tenderness, No vertebral tenderness Extremity Exam: normal inspection, normal range of motion, pelvis stable Neurologic Exam: alert, oriented x 3, 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, 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, normal mood/affect, nml cerebellar function, nml station & gait, sensation nml Skin Exam: normal color, warm, dry Lymphatic Exam: No adenopathy SpO2 Interpretation: normal O2 Delivery: Room Air - Course Nursing assessment & vital signs reviewed: Yes Ordered Tests: Active Orders 24 hr Category Date Time Status EKG-ER Only STAT Care 07/15/23 20:50 Active IV Insertion STAT Care 07/15/23 20:52 Active cath [Cath for Specimen-Straight] STAT Care 07/15/23 21:01 Active CHEST 1 VIEW (PORTABLE) Stat Exams 07/15/23 20:48 Taken AMYLASE Stat Lab 07/15/23 21:20 Completed BLOOD CULTURE Stat Lab 07/15/23 21:20 Received CBC W DIFF Stat Lab 07/15/23 21:20 Completed CMP Stat Lab 07/15/23 21:20 Completed CULTURE,URINE Stat Lab 07/15/23 21:03 Received LIPASE Stat Lab 07/15/23 21:20 Completed Lactic Acid Stat Lab 07/15/23 21:32 Completed MAGNESIUM Stat Lab 07/15/23 21:20 Completed MONO SCREEN Stat Lab 07/15/23 21:20 Completed TROPONIN Q4H Lab 07/15/23 21:20 Completed TROPONIN Q4H Lab 07/16/23 01:00 Ordered TROPONIN Q4H Lab 07/16/23 05:00 Ordered UA W/RFX UR CULTURE Stat Lab 07/15/23 21:01 Completed Medication Summary Generic Name Dose Route Start Last Admin Trade Name Jason PRN Reason Stop Dose Admin Sodium Chloride 1,000 mls @ 999 mls/hr 07/15/23 22:18 Sodium Chloride 0.9% 1000 Ml IV 07/15/23 23:18 .Q1H1M STA Ceftriaxone Sodium/Dextrose 1 g in 50 mls @ 100 mls/hr 07/15/23 22:18 Rocephin 1 Gm-D5w 50 Ml Bag IV 07/15/23 22:47 STAT STA Discontinued Medications Generic Name Dose Route Start Last Admin Trade Name Jason PRN Reason Stop Dose Admin Acetaminophen 650 mg 07/15/23 20:47 07/15/23 20:52 Acetaminophen 325 Mg Tablet PO 07/15/23 20:48 650 mg STAT STA Administration Acetaminophen Confirm 07/15/23 20:52 Acetaminophen 325 Mg Tablet Administered 07/15/23 20:53 Dose 650 mg .ROUTE .STK-MED ONE Sodium Chloride Confirm 07/15/23 22:26 Sodium Chloride 0.9% 1000 Ml Administered 07/15/23 22:27 Dose 1,000 mls @ ud .ROUTE .STK-MED ONE Ceftriaxone Sodium/Dextrose Confirm 07/15/23 22:27 Rocephin 1 Gm-D5w 50 Ml Bag Administered 07/15/23 22:28 Dose 1 g in 50 mls @ ud IV .STK-MED ONE Ibuprofen 600 mg 07/15/23 20:50 07/15/23 20:55 Ibuprofen 600 Mg Tablet PO 07/15/23 20:51 600 mg STAT ONE Administration Ibuprofen Confirm 07/15/23 20:54 Ibuprofen 600 Mg Tablet Administered 07/15/23 20:55 Dose 600 mg .ROUTE .STK-MED ONE Lab/Rad Data: Laboratory Result Diagrams 07/15/23 21:20 07/15/23 21:20 Laboratory Results 07/15/23 07/15/23 07/15/23 Range/Units 21:32 21:25 21:25 WBC (4.0-10.5) x10^3/uL RBC (4.1-5.4) x10^6/uL Hgb (12.0-16.0) g/dL Hct (35-47) % MCV (78-100) fL MCH (26-32) pg MCHC (32-36) g/dL RDW (11.5-14.0) % Plt Count (150-450) x10^3/uL MPV (7.5-11.0) fL Gran % (36.0-66.0) % Immature Gran % (Auto) (0.00-0.4) % Nucleat RBC Rel Count (0.00-0.1) % Eos # (Auto) (0-0.5) x10^3/uL Immature Gran # (Auto) (0.00-0.03) x10^3u/L Absolute Lymphs (auto) (1.0-4.6) x10^3/uL Absolute Monos (auto) (0.0-1.3) x10^3/uL Absolute Nucleated RBC (0.00-0.01) x10^3u/L Lymphocytes % (24.0-44.0) % Monocytes % (0.0-12.0) % Eosinophils % (0.00-5.0) % Basophils % (0.0-0.4) % Absolute Granulocytes (1.4-6.9) x10^3/uL Basophils # (0-0.4) x10^3/uL Sodium (137-145) mmol/L Potassium (3.5-5.1) mmol/L Chloride (98-107) mmol/L Carbon Dioxide (22-30) mmol/L Anion Gap (5-15) MEQ/L BUN (7-17) mg/dL Creatinine (0.52-1.04) mg/dL Estimated GFR ML/MIN Glucose (74-106) mg/dL Lactic Acid 1.1 (0.4-2.0) Calcium (8.4-10.2) mg/dL Magnesium (1.6-2.3) mg/dL Total Bilirubin (0.2-1.3) mg/dL AST (14-36) U/L ALT (0-35) U/L Alkaline Phosphatase (38-126) U/L Troponin I (0.000-0.034) ng/mL Serum Total Protein (6.3-8.2) g/dL Albumin (3.5-5.0) g/dL Amylase (30-110) U/L Lipase (23-300) U/L Urine Color (Yellow) Urine Appearance (Clear) Urine pH (4.6-8.0) Ur Specific [place] (1.005-1.030) Urine Protein (Negative) Urine Glucose (UA) (Negative) mg/dL Urine Ketones (Negative) Urine Blood (Negative) Urine Nitrite (Negative) Urine Bilirubin (Negative) Urine Urobilinogen (0.2) mg/dL Ur Leukocyte Esterase (Negative) U Hyaline Cast (Auto) (0-2) /LPF Urine Microscopic RBC (0-5) /HPF Urine Microscopic WBC (0-5) /HPF Ur Epithelial Cells (None Seen) /HPF Urine Bacteria (None Seen) /HPF Urine Culture Reflexed (NO) Monoscreen (NEGATIVE) Influenza Type A Ag NEGATIVE (NEGATIVE) Influenza Type B Ag NEGATIVE (NEGATIVE) RSV (PCR) NEGATIVE (NEGATIVE) SARS-CoV-2 (PCR) NEGATIVE (NEGATIVE) Group A Strep Antibody NOT DETECTED (NEGATIVE) 07/15/23 07/15/23 07/15/23 Range/Units 21:20 21:20 21:20 WBC (4.0-10.5) x10^3/uL RBC (4.1-5.4) x10^6/uL Hgb (12.0-16.0) g/dL Hct (35-47) % MCV (78-100) fL MCH (26-32) pg MCHC (32-36) g/dL RDW (11.5-14.0) % Plt Count (150-450) x10^3/uL MPV (7.5-11.0) fL Gran % (36.0-66.0) % Immature Gran % (Auto) (0.00-0.4) % Nucleat RBC Rel Count (0.00-0.1) % Eos # (Auto) (0-0.5) x10^3/uL Immature Gran # (Auto) (0.00-0.03) x10^3u/L Absolute Lymphs (auto) (1.0-4.6) x10^3/uL Absolute Monos (auto) (0.0-1.3) x10^3/uL Absolute Nucleated RBC (0.00-0.01) x10^3u/L Lymphocytes % (24.0-44.0) % Monocytes % (0.0-12.0) % Eosinophils % (0.00-5.0) % Basophils % (0.0-0.4) % Absolute Granulocytes (1.4-6.9) x10^3/uL Basophils # (0-0.4) x10^3/uL Sodium 125 L (137-145) mmol/L Potassium 3.7 (3.5-5.1) mmol/L Chloride 96 L (98-107) mmol/L Carbon Dioxide 21 L (22-30) mmol/L Anion Gap 12.7 (5-15) MEQ/L BUN 14 (7-17) mg/dL Creatinine 0.57 (0.52-1.04) mg/dL Estimated GFR 97.7 ML/MIN Glucose 98 (74-106) mg/dL Lactic Acid (0.4-2.0) Calcium 8.5 (8.4-10.2) mg/dL Magnesium 2.1 (1.6-2.3) mg/dL Total Bilirubin 1.20 (0.2-1.3) mg/dL AST 32 (14-36) U/L ALT 26 (0-35) U/L Alkaline Phosphatase 73 (38-126) U/L Troponin I 0.027 (0.000-0.034) ng/mL Serum Total Protein 6.6 (6.3-8.2) g/dL Albumin 3.5 (3.5-5.0) g/dL Amylase 31 (30-110) U/L Lipase 23 (23-300) U/L Urine Color (Yellow) Urine Appearance (Clear) Urine pH (4.6-8.0) Ur Specific [place] (1.005-1.030) Urine Protein (Negative) Urine Glucose (UA) (Negative) mg/dL Urine Ketones (Negative) Urine Blood (Negative) Urine Nitrite (Negative) Urine Bilirubin (Negative) Urine Urobilinogen (0.2) mg/dL Ur Leukocyte Esterase (Negative) U Hyaline Cast (Auto) (0-2) /LPF Urine Microscopic RBC (0-5) /HPF Urine Microscopic WBC (0-5) /HPF Ur Epithelial Cells (None Seen) /HPF Urine Bacteria (None Seen) /HPF Urine Culture Reflexed (NO) Monoscreen NEGATIVE (NEGATIVE) Influenza Type A Ag (NEGATIVE) Influenza Type B Ag (NEGATIVE) RSV (PCR) (NEGATIVE) SARS-CoV-2 (PCR) (NEGATIVE) Group A Strep Antibody (NEGATIVE) 07/15/23 07/15/23 Range/Units 21:20 21:01 WBC 12.4 H (4.0-10.5) x10^3/uL RBC 3.89 L (4.1-5.4) x10^6/uL Hgb 11.3 L (12.0-16.0) g/dL Hct 36.6 (35-47) % MCV 94.1 (78-100) fL MCH 29.0 (26-32) pg MCHC 30.9 L (32-36) g/dL RDW 15.0 H (11.5-14.0) % Plt Count 186 (150-450) x10^3/uL MPV 9.1 (7.5-11.0) fL Gran % 83.8 H (36.0-66.0) % Immature Gran % (Auto) 1.5 H (0.00-0.4) % Nucleat RBC Rel Count 0.0 (0.00-0.1) % Eos # (Auto) 0.02 (0-0.5) x10^3/uL Immature Gran # (Auto) 0.18 H (0.00-0.03) x10^3u/L Absolute Lymphs (auto) 0.65 L (1.0-4.6) x10^3/uL Absolute Monos (auto) 1.12 (0.0-1.3) x10^3/uL Absolute Nucleated RBC 0.00 (0.00-0.01) x10^3u/L Lymphocytes % 5.2 L (24.0-44.0) % Monocytes % 9.0 (0.0-12.0) % Eosinophils % 0.2 (0.00-5.0) % Basophils % 0.3 (0.0-0.4) % Absolute Granulocytes 10.39 H (1.4-6.9) x10^3/uL Basophils # 0.04 (0-0.4) x10^3/uL Sodium (137-145) mmol/L Potassium (3.5-5.1) mmol/L Chloride (98-107) mmol/L Carbon Dioxide (22-30) mmol/L Anion Gap (5-15) MEQ/L BUN (7-17) mg/dL Creatinine (0.52-1.04) mg/dL Estimated GFR ML/MIN Glucose (74-106) mg/dL Lactic Acid (0.4-2.0) Calcium (8.4-10.2) mg/dL Magnesium (1.6-2.3) mg/dL Total Bilirubin (0.2-1.3) mg/dL AST (14-36) U/L ALT (0-35) U/L Alkaline Phosphatase (38-126) U/L Troponin I (0.000-0.034) ng/mL Serum Total Protein (6.3-8.2) g/dL Albumin (3.5-5.0) g/dL Amylase (30-110) U/L Lipase (23-300) U/L Urine Color Yellow (Yellow) Urine Appearance Turbid A (Clear) Urine pH 5.5 (4.6-8.0) Ur Specific [place] 1.010 (1.005-1.030) Urine Protein 100 A (Negative) Urine Glucose (UA) Negative (Negative) mg/dL Urine Ketones 40 A (Negative) Urine Blood Moderate A (Negative) Urine Nitrite Positive A (Negative) Urine Bilirubin Negative (Negative) Urine Urobilinogen 1.0 A (0.2) mg/dL Ur Leukocyte Esterase Large A (Negative) U Hyaline Cast (Auto) None Seen (0-2) /LPF Urine Microscopic RBC 0-2 (0-5) /HPF Urine Microscopic WBC 51-100 A (0-5) /HPF Ur Epithelial Cells None Seen (None Seen) /HPF Urine Bacteria Moderate A (None Seen) /HPF Urine Culture Reflexed ORDERED SEPARATELY (NO) Monoscreen (NEGATIVE) Influenza Type A Ag (NEGATIVE) Influenza Type B Ag (NEGATIVE) RSV (PCR) (NEGATIVE) SARS-CoV-2 (PCR) (NEGATIVE) Group A Strep Antibody (NEGATIVE) - Progress Progress: improved, re-examined Progress Note: 07/15/23 21:14 This patient's medical issue is 1 of moderate complexity. The level of complexity and the workup performed is based on review of the patient's past medical history, review of the patient's medication list, review of the patient's drug allergy list, history present illness and physical findings on examination. The workup in this patient includes placement of intravenous line, infusion of normal saline solution, ibuprofen and Tylenol orally, COVID swab, mo no swab, group A strep, CBC, CMP, twelve-lead EKG, troponin level and urinalysis. 07/15/23 22:14 I interpreted the laboratory data results on this patient. The patient has a urinary tract infection. We will provide the patient with Rocephin intravenously followed by outpatient cefdinir. Counseled pt/family regarding: lab results, diagnosis, rad results Medical Desision Making - Independent Historian Additional History obtained from: Child, Family - Diagnostic Testing Diagnostic test were ordered, analyzed, and reviewed by me: Yes - Risk of complications The pt has a mod risk of morbidity or mortality based on: Need for prescription drug management - Departure Departure Disposition: Home Clinical Impression: Vomiting and diarrhea, Urinary tract infection, Mild dehydration Condition: Stable Critical Care Time: No Referrals: LOW STYLES DO [Primary Care Provider] - Follow up/PCP as directed Additional Instructions: Drink plenty of clear liquids before advancing your diet. Take your medications as prescribed. Call your primary care provider for further evaluation management and an appointment in the next 3 to 5 days. Use Tylenol and ibuprofen for fever control. Prescriptions: Cefdinir 300 mg PO BID #14 cap
[2023-07-15 20:45] VITALS: TEMP 101.4
[2023-07-15] MEDS ORDERED: TYLENOL 325 MG PO STA (20:47)
[2023-07-15] MEDS ORDERED: MOTRIN 600 MG PO ONE (20:50)
[2023-07-15] MEDS ORDERED: TYLENOL 325 MG ONE (20:52)
[2023-07-15] MEDS ORDERED: MOTRIN 600 MG ONE (20:54)
[2023-07-15 21:35] LABS: Absolute Neutrophil Ct (ANC) 10.39 x10^3/uL (1.4-6.9); BASOPHIL % 0.3 % (0.0-0.4); Basophil (Absolute #) 0.04 x10^3/uL (0-0.4); Eosinophil % 0.2 % (0.00-5.0); Eosinophil (Absolute #) 0.02 x10^3/uL (0-0.5); Hematocrit 36.6 % (35-47); Hemoglobin 11.3 g/dL (12.0-16.0); IMMATURE GRAN # 0.18 x10^3u/L (0.00-0.03); IMMATURE GRAN % 1.5 % (0.00-0.4); Lymphocyte (Absolute #) 0.65 x10^3/uL (1.0-4.6); Lymphocytes % 5.2 % (24.0-44.0); Mean Cell Volume 94.1 fL (78-100); Mean Corpuscular Hgb Concent. 30.9 g/dL (32-36); Mean Platelet Volume 9.1 fL (7.5-11.0); Monocyte (Absolute #) 1.12 x10^3/uL (0.0-1.3); Neutrophil % 83.8 % (36.0-66.0); Platelet Count 186 x10^3/uL (150-450); Red Blood Count 3.89 x10^6/uL (4.1-5.4); White Blood Count 12.4 x10^3/uL (4.0-10.5)
[2023-07-15 21:44] LABS: Appearance Turbid (Clear); Bilirubin Negative (Negative); Blood Moderate (Negative); Glucose, Urine Negative (Negative); Ketones 40 (Negative); Leukocyte Esterase Large (Negative); Nitrite Positive (Negative); Ph 5.5 (4.6-8.0); Protein,Urine Dip 100 (Negative)
[2023-07-15 21:49] LABS: RBC 0-2 /HPF (0-5)
[2023-07-15 21:49] LABS: ALBUMIN 3.5 g/dL (3.5-5.0); ANION GAP 12.7 MEQ/L (5-15); BILIRUBIN,TOTAL 1.2 mg/dL (0.2-1.3); Calcium 8.5 mg/dL (8.4-10.2); Creatinine 1 0.57 mg/dL (0.52-1.04); EST GLOMERULAR FILTRATION RATE 97.7 ML/MIN; MAGNESIUM 2.1 mg/dL (1.6-2.3); Potassium 3.7 mmol/L (3.5-5.1); Total Protein 6.6 g/dL (6.3-8.2)
[2023-07-15 22:10] LABS: WBC 51-100 /HPF (0-5)
[2023-07-15 22:11] LABS: ADD URINE CULTURE? ORDERED SEPARATELY (NO); Bacteria Moderate /HPF (None Seen); Epithelial Cells None Seen /HPF (None Seen); Hyaline Casts None Seen /LPF (0-2)
[2023-07-15 22:12] LABS: INFLUENZA A NEGATIVE (NEGATIVE); INFLUENZA B NEGATIVE (NEGATIVE); RESPIRATORY SYNCTIAL VIRUS NEGATIVE (NEGATIVE); SARS-CoV-2 Xpert Express NEGATIVE (NEGATIVE)
[2023-07-15] MEDS ORDERED: ROCEPHIN 1 Gm-D5w 50 ml Bag** 1 G/50 ML IVPB IV STA (22:18)
[2023-07-15] MEDS ORDERED: Sodium Chloride 0.9% 1000 ML 1,000 ML IV STA (22:18)
[2023-07-15] MEDS ORDERED: Sodium Chloride 0.9% 1000 ML 1,000 ML ONE (22:26)
[2023-07-15] MEDS ORDERED: ROCEPHIN 1 Gm-D5w 50 ml Bag** 1 G/50 ML IVPB IV ONE (22:27)
[2023-07-15 23:21] VITALS: PULSE 84
[2023-07-15 23:57] VITALS: BP 128/57; RESP 20; O2SAT 98
--- NOTE | 2023-07-16 08:45 | XRAY ---
Indication: Fever. Comparison: August 08, 2022 Portable chest less inflated with new minimal left base linear opacities, probable discoid atelectasis/scarring. Remaining heart and lungs unremarkable. Bony thorax intact again with osteopenia, degenerative changes, and old left humerus fracture with intact hardware.
== END 2023-07-16 00:05 | disposition home or self-care (01) ==
LOC: ED 20:05
DX: N39.0 Urinary tract infection, site not specified (principal); R11.2 Nausea with vomiting, unspecified; R19.7 Diarrhea, unspecified; E86.0 Dehydration; R50.9 Fever, unspecified; R53.83 Other fatigue; R06.02 Shortness of breath; M79.10 Myalgia, unspecified site; R05.1 Acute cough; J02.9 Acute pharyngitis, unspecified; I10 Essential (primary) hypertension; Z79.891 Long term (current) use of opiate analgesic; Z79.899 Other long term (current) drug therapy; Z28.310 Unvaccinated for COVID-19
CPT/HCPCS: 0241U; 36000; 36415; 71045; 80053; 81001; 82150; 83605; 83690; 83735; 84484; 85025; 86308; 87040; 87086; 87651; 93005; 96360; 96365; 99284; P9612; J0696; A9270-GY

== ENCOUNTER 2023-11-09 17:55 | Emergency (ER) | payer MEDICARE ==
--- NOTE | 2023-11-09 18:02 | ERPHSYRPT ---
- History of Present Illness Time Seen by Provider: 11/09/23 18:02 Source: patient Exam Limitations: no limitations Physician History: This is a 68-year-old white female patient of Dr. Styles who arrives to the emergency department by private vehicle. Patient was brought to the emergency department by her grandson. Patient states she did fall a month ago. However, in the last day or 2 she had been packing and unpacking boxes and doing a lot of bending and twisting because she is moving this weekend. This morning, at 4 AM, she suddenly had low back pain. She is on meloxicam and methocarbamol. That combination is not helping her pain. The pain was significant enough to wake her up from the sleep. Patient has a history of seizure disorder, hypertension, COPD, degenerative disc disease, fibromyalgia, gastroesophageal reflux disease and chronic liver disease. Timing/Duration: today Method of Injury: bending, twisted, turning Quality: sharp, stabbing Back Pain Location: lumbar spine, paraspinous muscles (Right paraspinous muscle area) Back Pain Radiation: buttocks (Right hip and buttock) Severity of Pain-Max: moderate Severity of Pain-Current: moderate Modifying Factors: Improves With: movement Associated Symptoms: lower back pain, muscle spasms, No urinary incontinence, No loss of bowel control, No problems urinating, No dizziness, No numbness in legs/feet, No sensory/motor loss, No tingling in legs/feet Previous symptoms: no prior history, no recent treatment Allergies/Adverse Reactions: amitriptyline [From Elavil] Allergy (Severe, Verified 07/15/23 20:19) aggitation/angry duloxetine [From Cymbalta] Allergy (Severe, Verified 07/15/23 20:19) Nausea and Vomiting Home Medications: Dexlansoprazole [Dexilant] 60 mg PO DAILY 08/08/16 [History] Metoprolol Succinate [Toprol Xl] 25 mg PO DAILY 01/09/18 [History] Albuterol 2 puffs IH Q4H PRN PRN 08/21/19 [History] Escitalopram Oxalate [Lexapro] 10 mg PO DAILY 07/17/20 [History] Meloxicam 7.5 mg PO DAILY 07/17/20 [History] Mvit-Mins/Folic Acid/Soy Isofl [One-A-Day Menopause Formula Tb] 1 each PO BID 08/08/22 [History] Ondansetron [Ondansetron Odt] 8 mg PO Q6H PRN 08/08/22 [History] methocarbamoL [Methocarbamol] 500 mg PO TID 08/08/22 [History] Metoclopramide HCl 5 mg PO BIDAC 08/25/22 [History] Cholecalciferol (Vitamin D3) [Vitamin D] 1 tablet PO DAILY 04/28/23 [Hi story] Tramadol HCl 50 mg [Ultram 50 mg] 50 mg PO TID 04/28/23 [History] Tramadol HCl [Conzip] 200 mg PO DAILY 04/28/23 [History] Hx Tetanus, Diphtheria Vaccination/Date Given: Yes Hx Influenza Vaccination/Date Given: Yes Hx Pneumococcal Vaccination/Date Given: No Travel Risk - International Travel Have you traveled outside of the country in past 3 weeks: No - Emerging Infectious Disease Are you exhibiting symptoms associated with any current EIDs: No - Review of Systems Constitutional: No Symptoms Eyes: No Symptoms Ears, Nose, & Throat: No Symptoms Respiratory: No Symptoms Cardiac: No Symptoms Abdominal/Gastrointestinal: No Symptoms Genitourinary Symptoms: No Symptoms Musculoskeletal: Back Pain (Right of midline lumbar spine level) Skin: No Symptoms Neurological: No Symptoms Psychological: No Symptoms Endocrine: No Symptoms Hematologic/Lymphatic: No Symptoms Immunological/Allergic: No Symptoms All Other Systems: Reviewed and Negative - Past Medical History Pertinent Past Medical History: Yes Neurological History: Seizures ENT History: No Pertinent History, Macular Degeneration, Other Cardiac History: Hypertension Respiratory History: COPD, Sleep Apnea Endocrine Medical History: Liver Disease Musculoskeletal History: Arthritis, Degenerative Disk Disease, Fibromyalgia, Fractures, Osteoporosis GI Medical History: GERD History: No Pertinent History, Other Psycho-Social History: Depression Female Reproductive Disorders: No Pertinent History Other Medical History: Partial seizures, Brain bleed from fall on march - Past Surgical History Past Surgical History: Yes Neuro Surgical History: No Pertinent History Cardiac: No Pertinent History Respiratory: No Pertinent History Gastrointestinal: Cholecystectomy, Other Genitourinary: No Pertinent History Musculoskeletal: Joint Replacement, Orthopedic Surgery Female Surgical History: Tubal Ligation Other Surgical History: gastroplasty, right shoulder, bilateral hip/knee surgeries, colonoscopy, LT and RT FOOT Significant Family History: heart disease, hypertension - Social History Smoking Status: Former smoker How long have you smoked: 30 years Exposure to second hand smoke: No Alcohol Use: None Drug Use: none Patient Lives Alone: No - Nursing Vital Signs Nursing Vital Signs: Initial Vital Signs Blood Pressure 164/74 11/09/23 18:04 Pain Scale Pain Intensity 7 - Physical Exam General Appearance: no apparent distress, alert, anxiety Eye Exam: PERRL/EOMI, eyes nml inspection Ears, Nose, Throat Exam: normal ENT inspection, moist mucous membranes Neck Exam: normal inspection, non-tender, supple, full range of motion Respiratory Exam: normal breath sounds, lungs clear, airway intact, No chest tenderness, No respiratory distress Gastrointestinal Exam: soft, normal bowel sounds, No tenderness Pelvic Exam: not done Rectal Exam: not done Back Exam: normal inspection, decreased range of motion, muscle spasm Extremity Exam: normal inspection, normal range of motion, pelvis stable Neurologic Exam: alert, oriented x 3, cooperative, braider operator II-XII nml as tested, normal mood/affect Skin Exam: normal color, warm, dry Lymphatic Exam: No adenopathy SpO2 Interpretation: normal O2 Delivery: Room Air - Course Nursing assessment & vital signs reviewed: Yes Ordered Tests: Active Orders 24 hr Category Date Time Status ABDOMEN AND PELVIS W/0 CONTRAS [CT] Stat Exams 11/09/23 18:23 Taken RECONSTRUCTION [CT] Stat Exams 11/09/23 18:25 Taken Medication Summary Discontinued Medications Generic Name Dose Route Start Last Admin Trade Name Freq PRN Reason Stop Dose Admin Methylprednisolone Sodium 0 mg 11/09/23 18:47 11/09/23 18:55 Succinate 125 mg/ Sterile IM 11/09/23 18:48 125 mg Water 2 ml STAT ONE Administration Hydromorphone HCl 0.5 mg 11/09/23 18:47 11/09/23 18:55 Hydromorphone 1 Mg/1ml Inj IM 11/09/23 18:48 0.5 mg STAT ONE Administration Hydromorphone HCl Confirm 11/09/23 18:51 Hydromorphone 1 Mg/1ml Inj Administered 11/09/23 18:52 Dose 1 mg .ROUTE .STK-MED ONE Methylprednisolone Sodium Succinate Confirm 11/09/23 18:52 Methylprednis Sod Succ 125 Mg/2 Ml Vial Administered 11/09/23 18:53 Dose 125 mg .ROUTE .STK-MED ONE Ondansetron HCl 4 mg 11/09/23 18:47 11/09/23 18:54 Zofran 4 Mg/Udtablet Orally Disintegrating PO 11/09/23 18:48 4 mg STAT ONE Administration Ondansetron HCl Confirm 11/09/23 18:51 Zofran 4 Mg/Udtablet Orally Disintegrating Administered 11/09/23 18:52 Dose 4 mg .ROUTE .STK-MED ONE Orphenadrine Citrate 60 mg 11/09/23 18:46 11/09/23 18:55 Orphenadrine Citrate 60 Mg/2 Ml Vial IM 11/09/23 18:47 60 mg STAT ONE Administration Orphenadrine Citrate Confirm 11/09/23 18:51 Orphenadrine Citrate 60 Mg/2 Ml Vial Administered 11/09/23 18:52 Dose 60 mg .ROUTE .STK-MED ONE Sterile Water Confirm 11/09/23 18:51 Water For Injection,Sterile 10 Ml Vial Administered 11/09/23 18:52 Dose 10 ml IJ .STK-MED ONE - Progress Progress: improved, pain not gone completely Progress Note: 11/09/23 18:31 My medical decision making and the assignment of low complexity to this patient's medical issue today is based on review of the patient's past medical history, review of the patient's medication list, review of the patient drug allergy list, history present illness and physical findings on examination. The workup in this patient includes CT scan of the abdomen pelvis to evaluate the aorta as well as hips bilaterally. In addition we will do a lumbar reconstruction CT scan to evaluate the lumbar spine. Differential diagnoses include sciatica, lumbar spine fracture and or subluxation, aortic abnormality, paraspinous muscle spasms 11/09/23 20:26 CT scan of the abdomen pelvis was interpreted by the radiologist and I reviewed the impression. Impression states stable hiatal hernia. Diffuse fecal stasis. Arterial sclerotic disease and chronic bony findings. No new/acute findings. CT scan lumbar reconstruction study was interpreted by the radiologist and I reviewed the impression. Impression states stable osteopenia mild to moderate degenerative spondylosis greatest at L3 and L4. There is old bilateral proximal femur fracture and old right lower rib fractures. No new or acute findings. Counseled pt/family regarding: diagnosis, need for follow-up, rad results Medical Desision Making - Independent Historian Additional History obtained from: Family - Diagnostic Testing Diagnostic test were ordered, analyzed, and reviewed by me: Yes Radiological Interpretation: Reviewed by me, Teleradiologist Report - Risk of complications The pt has a mod risk of morbidity or mortality based on: Need for prescription drug management - Departure Departure Disposition: Home Clinical Impression: Acute exacerbation of chronic low back pain Condition: Stable Critical Care Time: No Referrals: LOW STYLES DO [Primary Care Provider] - Follow up/PCP as directed Additional Instructions: Stop your meloxicam and your methocarbamol medication. May restart them once your prednisone and orphenadrine have been completed. Call your primary care provider tomorrow, 11/10/2023, to make arrangements for further evaluation management and to be seen in the next 3 to 5 days Prescriptions: Oxycodone HCl/Acetaminophen [Percocet 5-325 mg Tablet] 1 each PO Q12H PRN PRN #4 tablet MDD 2 PRN Reason: Moderate To Severe Pain Prednisone 10 mg [Deltasone 10 mg] 10 mg PO TID #12 tablet Orphenadrine Citrate 100 mg [Norflex 100 MG Tablet] 100 mg PO BID #10 tab
[2023-11-09 18:15] VITALS: TEMP 97.7
[2023-11-09] MEDS ORDERED: Norflex 60 MG/2 ML ONE (18:51)
[2023-11-09] MEDS ORDERED: ZOFRAN ODT 4 MG ONE (18:51)
[2023-11-09] MEDS ORDERED: Hydromorphone 1 mg/ml Injection ONE (18:51)
[2023-11-09] MEDS ORDERED: Sterile H2O 10 ml IJ ONE (18:51)
[2023-11-09] MEDS ORDERED: solu-MEDROL ONE (18:52)
[2023-11-09] MEDS: ZOFRAN ODT 4 MG PO ONE (18:54)
[2023-11-09] MEDS: solu-MEDROL 125 MG, Sterile H2O 10 ml 2 ML IM ONE (18:55)
[2023-11-09] MEDS: Norflex 60 MG/2 ML IM ONE (18:55)
[2023-11-09] MEDS: Hydromorphone 1 mg/ml Injection IM ONE (18:55)
[2023-11-09 19:45] VITALS: O2SAT 96
[2023-11-09 20:06] VITALS: PULSE 66; RESP 18
[2023-11-09] MEDS ORDERED: PERCOCET TABLET 5/325MG ONE (20:32)
[2023-11-09] MEDS: PERCOCET TABLET 5/325MG PO STA (20:35)
[2023-11-09 20:44] VITALS: BP 193/85
--- NOTE | 2023-11-10 08:32 | XRAY ---
Indication: Back and flank pain. Multiple contiguous axial images obtained through the abdomen and pelvis without contrast. Comparison: May 22, 2023 Lung bases demonstrates mild dependent atelectasis. No infiltrate or effusion. Heart not enlarged. Stable small hiatal hernia. Again previous gastric bypass surgery. Noncontrasted stomach and bowel loops appear nonobstructed. Appendix not visualized. There remains mild diffuse scattered colonic fecal debris throughout including rectum. Again cholecystectomy and hysterectomy. No free fluid/air. Remaining liver, pancreas, spleen, adrenal glands, kidneys, ureters, and bladder are unremarkable for noncontrast exam. There remains moderate scattered aortoiliac calcifications without AAA. Osseous structures intact again with osteopenia, mild/moderate multilevel thoracolumbar degenerative spondylosis greatest at L3-L4, mild dextrorotoscoliosis, old bilateral proximal femur fractures, and old right lower rib fractures. Impression: 1. Again mild diffuse fecal stasis without obstruction. 2. Chronic findings including hiatal hernia, arteriosclerotic disease, and chronic bony findings. 3. Remaining CT abdomen/pelvis without contrast exam continues to be negative.
--- NOTE | 2023-11-10 08:35 | XRAY ---
Indication: Back and flank pain. Axial, coronal, and sagittal reformatted images lumbar spine obtained using right data from same day CT abdomen/pelvis exam. Comparison: May 22, 2023 Osseous structures again demonstrates age-related osteopenia and mild dextrorotoscoliosis centered at L2. Grossly stable mild/moderate multilevel thoracolumbar degenerative spondylosis again greatest at L3-L4 where there remains spinal canal narrowing and marked right foraminal stenosis. Otherwise no acute fracture or suspicious bony lesions. CT abdomen/pelvis reported separately. Impression: Again osteopenia, dextrorotoscoliosis, and multilevel degenerative spondylosis greatest at L3-L4. No new/acute findings.
== END 2023-11-09 20:51 | disposition home or self-care (01) ==
LOC: ED 17:55
DX: G89.29 Other chronic pain (principal); M54.50 Low back pain, unspecified; I10 Essential (primary) hypertension; Z79.52 Long term (current) use of systemic steroids; Z79.891 Long term (current) use of opiate analgesic; Z79.899 Other long term (current) drug therapy
CPT/HCPCS: 74176; 76376; 96372; 99284; J1170; J2360; J2919; Q0162; A9270-GY

== ENCOUNTER 2024-02-28 20:02 | Emergency (ER) | payer MEDICARE, OTHER ==
--- NOTE | 2024-02-28 20:06 | ERPHSYRPT ---
- History of Present Illness Time Seen by Provider: 02/28/24 20:06 Source: patient, family Exam Limitations: no limitations Physician History: This is a 69-year-old right-handed white female patient who was brought into the emergency department by private vehicle by family member. She is a patient of Dr. Styles. Prior to arrival patient was cutting tape off of hand when the knife slipped and cut her left index finger. Patient's tetanus status is not up-to-date. Occurred: just prior to arrival Method of Injury: other (Accidental knife laceration) Severity of Pain-Max: mild Severity of Pain-Current: mild Extremities Pain Location: 2nd finger: left Modifying Factors: Improves With: nothing Associated Symptoms: none Allergies/Adverse Reactions: amitriptyline [From Elavil] Allergy (Severe, Verified 02/28/24 20:12) aggitation/angry duloxetine [From Cymbalta] Allergy (Severe, Verified 02/28/24 20:12) Nausea and Vomiting Home Medications: Dexlansoprazole [Dexilant] 60 mg PO DAILY 08/08/16 [History] Metoprolol Succinate [Toprol Xl] 25 mg PO DAILY 01/09/18 [History] Albuterol 2 puffs IH Q4H PRN PRN 08/21/19 [History] Escitalopram Oxalate [Lexapro] 10 mg PO DAILY 07/17/20 [History] Meloxicam 7.5 mg PO DAILY 07/17/20 [History] Mvit-Mins/Folic Acid/Soy Isofl [One-A-Day Menopause Formula Tb] 1 each PO BID 08/08/22 [History] Ondansetron [Ondansetron Odt] 8 mg PO Q6H PRN 08/08/22 [History] methocarbamoL [Methocarbamol] 500 mg PO TID 08/08/22 [History] Metoclopramide HCl 5 mg PO BIDAC 08/25/22 [History] Cholecalciferol (Vitamin D3) [Vitamin D] 1 tablet PO DAILY 04/28/23 [History] Tramadol HCl 50 mg [Ultram 50 mg] 50 mg PO TID 04/28/23 [History] Tramadol HCl [Conzip] 200 mg PO DAILY 04/28/23 [History] Hx Tetanus, Diphtheria Vaccination/Date Given: Yes Hx Influenza Vaccination/Date Given: Yes Hx Pneumococcal Vaccination/Date Given: No Travel Risk - International Travel Have you traveled outside of the country in past 3 weeks: No - Emerging Infectious Disease Are you exhibiting symptoms associated with any current EIDs: No - Review of Systems Constitutional: No Symptoms Eyes: No Symptoms Ears, Nose, & Throat: No Symptoms Respiratory: No Symptoms Cardiac: No Symptoms Abdominal/Gastrointestinal: No Symptoms Genitourinary Symptoms: No Symptoms Musculoskeletal: No Symptoms Skin: Other (0.5 cm transverse oriented dorsal aspect left index finger) Neurological: No Symptoms Psychological: No Symptoms Endocrine: No Symptoms Hematologic/Lymphatic: No Symptoms Immunological/Allergic: No Symptoms All Other Systems: Reviewed and Negative - Past Medical History Pertinent Past Medical History: Yes Neurological History: Seizures ENT History: No Pertinent History, Macular Degeneration, Other Cardiac History: Hypertension Respiratory History: COPD, Sleep Apnea Endocrine Medical History: Liver Disease Musculoskeletal History: Arthritis, Degenerative Disk Disease, Fibromyalgia, Fractures, Osteoporosis GI Medical History: GERD History: No Pertinent History, Other Psycho-Social History: Depression Female Reproductive Disorders: No Pertinent History Other Medical History: Partial seizures, Brain bleed from fall on march - Past Surgical History Past Surgical History: Yes Neuro Surgical History: No Pertinent History Cardiac: No Pertinent History Respiratory: No Pertinent History Gastrointestinal: Cholecystectomy, Other Genitourinary: No Pertinent History Musculoskeletal: Joint Replacement, Orthopedic Surgery Female Surgical History: Tubal Ligation Other Surgical History: gastroplasty, right shoulder, bilateral hip/knee surgeries, colonoscopy, LT and RT FOOT Significant Family History: heart disease, hypertension - Social History Smoking Status: Former smoker How long have you smoked: 30 years Exposure to second hand smoke: No Alcohol Use: None Drug Use: none Patient Lives Alone: No - Social Determinants of Health Will the patient participate in the screening: Declined to provide - Nursing Vital Signs Nursing Vital Signs: Initial Vital Signs Pulse Rate 64 02/28/24 20:12 Blood Pressure 153/77 02/28/24 20:12 O2 Sat by Pulse Oximetry 99 02/28/24 20:12 Pain Scale Pain Intensity 9 - Physical Exam General Appearance: no apparent distress, alert Eyes, Ears, Nose, Throat Exam: normal ENT inspection, moist mucous membranes Neck Exam: normal inspection, non-tender, supple, full range of motion Cardiovascular/Respiratory Exam: chest non-tender, no respiratory distress Abdominal Exam: non-tender Back Exam: normal inspection Shoulder Exam: normal inspection, non-tender, no evidence of injury, normal ROM Elbow/Forearm Exam: normal inspection, non-tender, no evidence of injury, normal ROM Wrist Exam: normal inspection, non-tender, no evidence of injury, normal ROM Hand Exam: normal inspection, normal ROM, laceration (Second digit left hand skin laceration measuring 0.5 cm. No active bleeding. No foreign body. Tendon function intact. Neurovascularly intact) Neuro/Tendon Exam: normal sensation, normal motor functions, normal tendon functions, responds to pain, no evidence tendon injury Mental Status Exam: alert, oriented x 3, cooperative Skin Exam: laceration (See above and section) SpO2 Interpretation: normal O2 Delivery: Room Air Procedures - Laceration/Wound Repair Left Dorsal Finger Time of Procedure: 20:35 Wound Location: Left, hand Wound Length (cm): 0.5 Wound's Depth, Shape: superficial, linear Wound Explored: clean (Wound was explored. It is clean. Exploration and bloodless field to the base and no foreign body are noted) Irrigated: Yes Hibiclens Prep: Yes Wound Repaired With: Steri-strips, Dermabond - Course Nursing assessment & vital signs reviewed: Yes Ordered Tests: Active Orders 24 hr Category Date Time Status Wound Care STAT Care 02/28/24 20:25 Active Medication Summary Discontinued Medications Generic Name Dose Route Start Last Admin Trade Name Jason PRN Reason Stop Dose Admin Diphtheria/Tetanus/Acell Pertussis 0.5 ml 02/28/24 20:21 02/28/24 20:25 Tdap --Diph,Pertuss(Acell),Tet Vac/Pf 0.5 Ml Vial IM 02/28/24 20:22 0.5 ml .ONCE ONE Administration Diphtheria/Tetanus/Acell Pertussis Confirm 02/28/24 20:24 Tdap --Diph,Pertuss(Acell),Tet Vac/Pf 0.5 Ml Vial Administered 02/28/24 20:25 Dose 0.5 ml IM .STK-MED ONE - Progress Progress: improved Progress Note: 02/28/24 20:41 My medical decision making and the assignment of low complexity to this patient's medical issue today is based on review of the patient's past medical history, review the patient's medication list, review patient drug allergy list, history present illness and physical findings on examination. No radiographic or laboratory studies are necessary in this patient's workup. Counseled pt/family regarding: diagnosis Medical Desision Making - Independent Historian Additional History obtained from: Family - Diagnostic Testing Diagnostic test were ordered, analyzed, and reviewed by me: No - Risk of complications Minimal Risk: Minimal risk of morbidity - Departure Departure Disposition: Home Clinical Impression: Laceration of left index finger Condition: Stable Critical Care Time: No Referrals: LOW STYLES DO [Primary Care Provider] - Follow up/PCP as directed Additional Instructions: Keep the left finger repair site dry until the evening of 02/29/2024. At that time you may allow soap and water to flow over the site. Do not rub. Blot dry or use a dehairing machine tender. Keep the Steri-Strips in place until they start curling up on their own and trim the Steri-Strips. Do not pull them off. Use Tylenol and ibuprofen for pain control if there are no contraindications to do so.
[2024-02-28 20:22] VITALS: RESP 20; TEMP 97.9
[2024-02-28] MEDS ORDERED: Adacel Vial IM ONE (20:24)
[2024-02-28] MEDS: Adacel Vial IM ONE (20:25)
[2024-02-28 20:43] VITALS: BP 148/97; PULSE 62; O2SAT 97
== END 2024-02-28 20:50 | disposition home or self-care (01) ==
LOC: ED 20:02
DX: S61.211A Laceration without foreign body of left index finger without damage to nail, initial encounter (principal); W26.0XXA Contact with knife, initial encounter; I10 Essential (primary) hypertension; Z79.899 Other long term (current) drug therapy; Z23 Encounter for immunization
CPT/HCPCS: 12001; 90471; 90715; 99282

== ENCOUNTER 2024-05-10 18:29 | Observation (INO) | payer MEDICARE, OTHER ==
--- NOTE | 2024-05-10 19:01 | ERPHSYRPT ---
- History of Present Illness Time Seen by Provider: 05/10/24 19:00 Source: patient, family Exam Limitations: no limitations Physician History: This is a 69-year-old white female patient of Dr. Styles who presents by private vehicle with a history of flulike symptoms including headache, body aches painful deep respiration. The patient states the symptoms came on yest erday and was worse today. However, the daughter states that milder symptoms were present for a few days. Patient has associated shortness of breath. There is no abdominal pain. There is no nausea vomiting or diarrhea symptoms and there is no chest pain. Patient has a history of seizure disorder, COPD, hypertension, gastroesophageal reflux disease, degenerative disc disease, fibromyalgia, osteoporosis and depression. Cough Quality/Degree: no cough Allergies/Adverse Reactions: amitriptyline [From Elavil] Allergy (Severe, Verified 05/10/24 19:06) aggitation/angry duloxetine [From Cymbalta] Allergy (Severe, Verified 05/10/24 19:06) Nausea and Vomiting Home Medications: Dexlansoprazole [Dexilant] 60 mg PO DAILY 08/08/16 [History] Metoprolol Succinate [Toprol Xl] 25 mg PO DAILY 01/09/18 [History] Albuterol 2 puffs IH Q4H PRN PRN 08/21/19 [History] Escitalopram Oxalate [Lexapro] 10 mg PO DAILY 07/17/20 [History] Meloxicam 7.5 mg PO DAILY 07/17/20 [History] Mvit-Mins/Folic Acid/Soy Isofl [One-A-Day Menopause Formula Tb] 1 each PO BID 08/08/22 [History] Ondansetron [Ondansetron Odt] 8 mg PO Q6H PRN 08/08/22 [History] methocarbamoL [Methocarbamol] 500 mg PO TID 08/08/22 [History] Metoclopramide HCl 5 mg PO BIDAC 08/25/22 [History] Cholecalciferol (Vitamin D3) [Vitamin D] 1 tablet PO DAILY 04/28/23 [History] Tramadol HCl 50 mg [Ultram 50 mg] 50 mg PO TID 04/28/23 [History] Tramadol HCl [Conzip] 200 mg PO DAILY 04/28/23 [History] Hx Tetanus, Diphtheria Vaccination/Date Given: Yes Hx Influenza Vaccination/Date Given: Yes Hx Pneumococcal Vaccination/Date Given: No Travel Risk - International Travel Have you traveled outside of the country in past 3 weeks: No - Emerging Infectious Disease Are you exhibiting symptoms associated with any current EIDs: No Symptoms: Headaches/Body Aches/, Shortness of Breath - Review of Systems Constitutional: No Symptoms Eyes: No Symptoms Ears, Nose, & Throat: No Symptoms Respiratory: Dyspnea Cardiac: No Symptoms Abdominal/Gastrointestinal: No Symptoms Genitourinary Symptoms: No Symptoms Musculoskeletal: Arthralgias, Myalgias Skin: No Symptoms Neurological: No Symptoms Psychological: No Symptoms Endocrine: No Symptoms Hematologic/Lymphatic: No Symptoms Immunological/Allergic: No Symptoms All Other Systems: Reviewed and Negative - Past Medical History Pertinent Past Medical History: Yes Neurological History: Seizures ENT History: No Pertinent History, Macular Degeneration, Other Cardiac History: Hypertension Respiratory History: COPD, Sleep Apnea Endocrine Medical History: Liver Disease Musculoskeletal History: Arthritis, Degenerative Disk Disease, Fibromyalgia, Fractures, Osteoporosis GI Medical History: GERD History: No Pertinent History, Other Psycho-Social History: Depression Female Reproductive Disorders: No Pertinent History Other Medical History: Partial seizures, Brain bleed from fall on march - Past Surgical History Past Surgical History: Yes Neuro Surgical History: No Pertinent History Cardiac: No Pertinent History Respiratory: No Pertinent History Gastrointestinal: Cholecystectomy, Other Genitourinary: No Pertinent History Musculoskeletal: Joint Replacement, Orthopedic Surgery Female Surgical History: Tubal Ligation Other Surgical History: gastroplasty, right shoulder, bilateral hip/knee surgeries, colonoscopy, LT and RT FOOT Significant Family History: heart disease, hypertension - Social History Smoking Status: Former smoker How long have you smoked: 30 years Exposure to second hand smoke: No Alcohol Use: None Drug Use: none Patient Lives Alone: No - Social Determinants of Health Will the patient participate in the screening: Declined to provide - Nursing Vital Signs Nursing Vital Signs: Initial Vital Signs Pulse Rate 99 H 05/10/24 19:01 Respiratory Rate 20 05/10/24 19:01 Blood Pressure 152/89 05/10/24 19:01 O2 Sat by Pulse Oximetry 91 L 05/10/24 19:01 Pain Scale Pain Intensity 0 - Physical Exam General Appearance: no apparent distress, alert Eye Exam: PERRL/EOMI, eyes nml inspection Ears, Nose, Throat Exam: normal ENT inspection, moist mucous membranes Neck Exam: normal inspection, non-tender, supple, full range of motion Respiratory Exam: airway intact, diminished breath sounds (Lower lobe), No chest tenderness, No respiratory distress Cardiovascular Exam: regular rate/rhythm, normal heart sounds, normal peripheral pulses Gastrointestinal/Abdomen Exam: soft, normal bowel sounds, No tenderness Pelvic Exam: not done Rectal Exam: not done Back Exam: normal inspection, normal range of motion, No CVA tenderness, No vertebral tenderness Extremity Exam: normal inspection, normal range of motion, pelvis stable Neurologic Exam: alert, oriented x 3, cooperative, packager or packer and weigher II-XII nml as tested, normal mood/affect, nml cerebellar function, nml station & gait, sensation nml Skin Exam: normal color, warm, dry Lymphatic Exam: No adenopathy SpO2 Interpretation: borderline oxygenation O2 Delivery: Room Air - Course Nursing assessment & vital signs reviewed: Yes Ordered Tests: Active Orders 24 hr Category Date Time Status Heel Gummer STAT Care 05/10/24 19:59 Active EKG-ER Only STAT Care 05/10/24 19:58 Active IV Insertion STAT Care 05/10/24 19:58 Active Pulse Oximetry (ED) STAT Care 05/10/24 19:58 Active CHEST 1 VIEW (PORTABLE) Stat Exams 05/10/24 19:58 Taken BLOOD CULTURE Stat Lab 05/10/24 19:35 Received CBC W DIFF Stat Lab 05/10/24 19:35 Completed CMP Stat Lab 05/10/24 19:35 Completed MAGNESIUM Stat Lab 05/10/24 19:35 Completed MONO SCREEN Stat Lab 05/10/24 19:35 Completed NT PRO BNPII Stat Lab 05/10/24 19:35 Completed TROPONIN Q4H Lab 05/10/24 19:35 Completed TROPONIN Q4H Lab 05/10/24 22:30 Ordered TROPONIN Q4H Lab 05/11/24 00:00 Ordered TROPONIN Q4H Lab 05/11/24 04:00 Ordered Lab/Rad Data: Laboratory Result Diagrams 05/10/24 19:35 05/10/24 19:35 Laboratory Results 05/10/24 05/10/24 05/10/24 Range/Units 20:15 19:35 19:35 WBC (3.98-10.04) x10^3/uL RBC (3.93-5.22) x10^6/uL Hgb (11.2-15.7) g/dL Hct (34.1-44.9) % MCV (79.4-94.8) fL MCH (25.6-32.2) pg MCHC (32.2-35.5) g/dL RDW (11.7-14.4) % Plt Count (182-369) x10^3/uL MPV (9.4-12.3) fL Gran % (34.0-71.1) % Immature Gran % (Auto) (0.001-0.429) % Nucleat RBC Rel Count (0.00-0.2) % Eos # (Auto) (0.04-0.36) x10^3/uL Immature Gran # (Auto) (0.001-0.031) x10^3u/L Absolute Lymphs (auto) (1.18-3.74) x10^3/uL Absolute Monos (auto) (0.24-0.86) x10^3/uL Absolute Nucleated RBC (0.00-0.012) x10^3u/L Lymphocytes % (19.3-51.7) % Monocytes % (4.7-12.5) % Eosinophils % (0.7-5.8) % Basophils % (0.1-1.2) % Absolute Granulocytes (1.56-6.13) x10^3/uL Basophils # (0.01-0.08) x10^3/uL Sodium (135-145) mmol/L Potassium (3.5-5.1) mmol/L Chloride (98-107) mmol/L Carbon Dioxide (22-30) mmol/L Anion Gap (5-15) MEQ/L BUN (7-17) mg/dL Creatinine (0.52-1.04) mg/dL Estimated GFR ML/MIN Glucose (74-106) mg/dL Calcium (8.4-10.2) mg/dL Magnesium (1.6-2.3) mg/dL Total Bilirubin (0.2-1.3) mg/dL AST (14-36) U/L ALT (0-35) U/L Alkaline Phosphatase (38-126) U/L Troponin I (0.000-0.033) ng/mL NT-Pro-B Natriuret Pep 725 (<300) pg/mL Serum Total Protein (6.3-8.2) g/dL Albumin (3.5-5.0) g/dL Monoscreen NEGATIVE (NEGATIVE) Influenza Type A Ag NEGATIVE (NEGATIVE) Influenza Type B Ag NEGATIVE (NEGATIVE) RSV (PCR) NEGATIVE (NEGATIVE) SARS-CoV-2 (PCR) NEGATIVE (NEGATIVE) 05/10/24 05/10/24 05/10/24 Range/Units 19:35 19:35 19:35 WBC 8.6 (3.98-10.04) x10^3/uL RBC 3.96 (3.93-5.22) x10^6/uL Hgb 11.1 L (11.2-15.7) g/dL Hct 35.2 (34.1-44.9) % MCV 88.9 (79.4-94.8) fL MCH 28.0 (25.6-32.2) pg MCHC 31.5 L (32.2-35.5) g/dL RDW 14.4 (11.7-14.4) % Plt Count 331 (182-369) x10^3/uL MPV 8.8 L (9.4-12.3) fL Gran % 75.6 H (34.0-71.1) % Immature Gran % (Auto) 0.5 H (0.001-0.429) % Nucleat RBC Rel Count 0.0 (0.00-0.2) % Eos # (Auto) 0.16 (0.04-0.36) x10^3/uL Immature Gran # (Auto) 0.04 H (0.001-0.031) x10^3u/L Absolute Lymphs (auto) 1.30 (1.18-3.74) x10^3/uL Absolute Monos (auto) 0.56 (0.24-0.86) x10^3/uL Absolute Nucleated RBC 0.00 (0.00-0.012) x10^3u/L Lymphocytes % 15.2 L (19.3-51.7) % Monocytes % 6.5 (4.7-12.5) % Eosinophils % 1.9 (0.7-5.8) % Basophils % 0.3 (0.1-1.2) % Absolute Granulocytes 6.49 H (1.56-6.13) x10^3/uL Basophils # 0.03 (0.01-0.08) x10^3/uL Sodium 136 (135-145) mmol/L Potassium 3.4 L (3.5-5.1) mmol/L Chloride 99 (98-107) mmol/L Carbon Dioxide 26 (22-30) mmol/L Anion Gap 14.0 (5-15) MEQ/L BUN 7 (7-17) mg/dL Creatinine 0.49 L (0.52-1.04) mg/dL Estimated GFR 100.7 ML/MIN Glucose 104 (74-106) mg/dL Calcium 9.0 (8.4-10.2) mg/dL Magnesium 1.7 (1.6-2.3) mg/dL Total Bilirubin 0.70 (0.2-1.3) mg/dL AST 26 (14-36) U/L ALT 17 (0-35) U/L Alkaline Phosphatase 87 (38-126) U/L Troponin I 0.015 (0.000-0.033) ng/mL NT-Pro-B Natriuret Pep (<300) pg/mL Serum Total Protein 6.3 (6.3-8.2) g/dL Albumin 3.5 (3.5-5.0) g/dL Monoscreen (NEGATIVE) Influenza Type A Ag (NEGATIVE) Influenza Type B Ag (NEGATIVE) RSV (PCR) (NEGATIVE) SARS-CoV-2 (PCR) (NEGATIVE) - Progress Progress: improved, re-examined Air Movement: fair Progress Note: 05/10/24 22:38 My medical decision making and the assignment of moderate complexity to this patient's medical issue today is based on review of the patient's past medical history, review of the patient's medication list, reviewed patient drug allergy list, history present illness and physical findings on examination. The workup in this patient includes placement of intravenous line, CBC, CMP, troponin level, twelve-lead EKG, blood cultures, viral swabs, strep test, chest x-ray. Differential diagnosis includes but is not limited to pneumonia, viral illness, myocardial infarction, arrhythmias 05/10/24 22:43 I interpreted the preliminary chest x-ray report. When compared to similar study dated 07/15/2023, the patient appears to have a left lower lobe infiltr ates/atelectasis/effusion Blood Culture(s) Obtained: Yes Antibiotics given: Yes Counseled pt/family regarding: lab results, diagnosis, need for follow-up, rad results Medical Desision Making - Independent Historian Additional History obtained from: Family - Diagnostic Testing Diagnostic test were ordered, analyzed, and reviewed by me: Yes Radiological Interpretation: Interpreted by me - Risk of complications The pt has a mod risk of morbidity or mortality based on: Need for prescription drug management - Departure Departure Disposition: Home Clinical Impression: Left lower lobe pulmonary infiltrate Condition: Stable Critical Care Time: No Referrals: LOW STYLES DO [Primary Care Provider] - Follow up/PCP as directed Additional Instructions: Drink plenty of fluids. Take your medications as prescribed. Use your inhalers or nebulizers every 4 hours while you are awake for the next 72 hours. Take your antibiotics and steroids as prescribed. Call your primary care provider tomorrow, 05/11/2024 to make arrangements for follow-up appointment for further evaluation management. Prescriptions: Prednisone 10 mg [Deltasone 10 mg] 10 mg PO TID #12 tablet Azithromycin 250 mg [Zithromax 250 MG TABLET] 250 mg PO ZPACK #6 tablet
[2024-05-10 20:06] LABS: Absolute Neutrophil Ct (ANC) 6.49 x10^3/uL (1.56-6.13); BASOPHIL % 0.3 % (0.1-1.2); Basophil (Absolute #) 0.03 x10^3/uL (0.01-0.08); Eosinophil % 1.9 % (0.7-5.8); Eosinophil (Absolute #) 0.16 x10^3/uL (0.04-0.36); Hematocrit 35.2 % (34.1-44.9); Hemoglobin 11.1 g/dL (11.2-15.7); IMMATURE GRAN # 0.04 x10^3u/L (0.001-0.031); IMMATURE GRAN % 0.5 % (0.001-0.429); Lymphocytes % 15.2 % (19.3-51.7); Mean Cell Volume 88.9 fL (79.4-94.8); Mean Corpuscular Hgb Concent. 31.5 g/dL (32.2-35.5); Mean Platelet Volume 8.8 fL (9.4-12.3); Monocyte (Absolute #) 0.56 x10^3/uL (0.24-0.86); Monocytes % 6.5 % (4.7-12.5); Neutrophil % 75.6 % (34.0-71.1); Platelet Count 331 x10^3/uL (182-369); Red Blood Count 3.96 x10^6/uL (3.93-5.22); Red Cell Distribution Width 14.4 % (11.7-14.4); White Blood Count 8.6 x10^3/uL (3.98-10.04)
[2024-05-10 20:12] LABS: ALBUMIN 3.5 g/dL (3.5-5.0); BILIRUBIN,TOTAL 0.7 mg/dL (0.2-1.3); Creatinine 1 0.49 mg/dL (0.52-1.04); EST GLOMERULAR FILTRATION RATE 100.7 ML/MIN; MAGNESIUM 1.7 mg/dL (1.6-2.3); Potassium 3.4 mmol/L (3.5-5.1); Total Protein 6.3 g/dL (6.3-8.2)
[2024-05-10 21:19] LABS: INFLUENZA A NEGATIVE (NEGATIVE); INFLUENZA B NEGATIVE (NEGATIVE); RESPIRATORY SYNCTIAL VIRUS NEGATIVE (NEGATIVE); SARS-CoV-2 Xpert Express NEGATIVE (NEGATIVE)
[2024-05-10] MEDS ORDERED: solu-MEDROL ONE (22:39)
[2024-05-10] MEDS ORDERED: ROCEPHIN 1 GM / 100 ML NaCl 1 GM/100 ML IVPB IV ONE (22:39)
[2024-05-10] MEDS ORDERED: Sterile H2O 10 ml IJ ONE (22:39)
[2024-05-10] MEDS: ROCEPHIN 1 GM / 100 ML NaCl 1 GM/100 ML IVPB IV ONE (22:43)
[2024-05-10] MEDS: solu-MEDROL 125 MG, Sterile H2O 10 ml 2 ML IV ONE (22:43)
[2024-05-11] MEDS ORDERED: Zofran 4 MG/2 ML VIAL IV PRN (00:22)
[2024-05-11] MEDS ORDERED: PROVENTIL 2.5 MG/3 ML NEB IH PRN (01:34)
[2024-05-11] MEDS ORDERED: PERCOCET TABLET 5/325MG PO PRN (01:42)
--- NOTE | 2024-05-11 03:06 | PCM.HP ---
History of Present Illness - Chief Complaint Chief Complaint: chest pain, muscle aches Date: 05/11/24 History of Present Illness: is a 69 year old female with h/o COPD, hypertension, and GERD, who presents with 4 to 5 days of progressive headache, myalgias, and overall malaise. For the last 2 days, she has developed severe left-sided pleuritic chest pain. She has had minimal cough, but has had some nausea and dyspnea, with increasing use of her home inhaler. Denies any sick contacts. On arrival to the ED, she was noted to have an SpO2 of 91% on room air, improving to 95% on room air with good inspiration. However, she remained in low-grade tachycardia. - Review of Systems All Other Systems: Reviewed and Negative Medications & Allergies Home Medications: Home Medication List Dexlansoprazole [Dexilant] 60 mg PO DAILY 08/08/16 [History Confirmed 05/11/24] Metoprolol Succinate [Toprol Xl] 25 mg PO DAILY 01/09/18 [History Confirmed 05/11/24] Albuterol 2 puffs IH Q4H PRN PRN 08/21/19 [History Confirmed 05/11/24] Escitalopram Oxalate [Lexapro] 10 mg PO DAILY 07/17/20 [History Confirmed 05/11/24] Meloxicam 7.5 mg PO DAILY 07/17/20 [History Confirmed 05/11/24] Mvit-Mins/Folic Acid/Soy Isofl [One-A-Day Menopause Formula Tb] 1 each PO BID 08/08/22 [History Confirmed 05/11/24] Ondansetron [Ondansetron Odt] 8 mg PO Q6H PRN 08/08/22 [History Confirmed 05/11/24] methocarbamoL [Methocarbamol] 500 mg PO TID 08/08/22 [History Confirmed 05/11/24] Metoclopramide HCl 5 mg PO BIDAC 08/25/22 [History Confirmed 05/11/24] Cholecalciferol (Vitamin D3) [Vitamin D] 1 tablet PO DAILY 04/28/23 [History Confirmed 05/11/24] Cefdinir 300 mg PO BID #14 cap 07/15/23 [Rx Confirmed 05/11/24] Orphenadrine Citrate 100 mg [Norflex 100 MG Tablet] 100 mg PO BID #10 tab 11/09/23 [Rx Confirmed 05/11/24] Oxycodone HCl/Acetaminophen [Percocet 5-325 mg Tablet] 1 each PO Q12H PRN PRN #4 tablet MDD 2 11/09/23 [Rx Confirmed 05/11/24] Azithromycin 250 mg [Zithromax 250 MG TABLET] 250 mg PO ZPACK #6 tablet 05/10/24 [Rx] Prednisone 10 mg [Deltasone 10 mg] 10 mg PO TID #12 tablet 05/10/24 [Rx] Prednisone 10 mg [Deltasone 10 mg] 5 mg PO TID 05/11/24 [History Confirmed 05/11/24] Allergies/Adverse Reactions: Allergies Allergy/AdvReac Type Severity Reaction Status Date / Time amitriptyline [From Elavil] Allergy Severe aggitation/ Verified 05/10/24 19:06 angry duloxetine [From Cymbalta] Allergy Severe Nausea and Verified 05/10/24 19:06 Vomiting - Past Medical History Past Medical History: Yes Neurological History: Seizures ENT History: No Pertinent History, Macular Degeneration, Other Cardiac History: Hypertension Respiratory History: COPD (Not on oxygen at home), Sleep Apnea (Not on CPAP) Endocrine Medical History: Liver Disease Musculoskelatal History: Arthritis, Degenerative Disk Disease, Fibromyalgia, Fractures, Osteoporosis GI Medical History: GERD History: No Pertinent History, Other Pyscho-Social History: Depression Reproductive Disorders: No Pertinent History Comment: Partial seizures, Brain bleed from fall on march, macualr degenetation - Past Surgical History Past Surgical History: Yes Neuro Surgical History: No Pertinent History Cardiac History: No Pertinent History Respiratory Surgery: No Pertinent History GI Surgical History: Cholecystectomy, Other Genitourinary Surgical Hx: No Pertinent History Musculskeletal Surgical Hx: Joint Replacement, Orthopedic Surgery Female Surgical History: Tubal Ligation Other Surgical History: gastroplasty, right shoulder, bilateral hip/knee surgeries, colonoscopy, LT and RT FOOT Significant Family History: heart disease, hypertension - Social History Smoking Status: Former smoker How long have you smoked: 30 years Exposure to second hand smoke: No Alcohol: None Drug Use: none - Social Determinants of Health Will the patient participate in the screening: Yes Do you worry about a steady place to live?: No Do you have any problems with any of the following?: No known problems In the past 12 months,have you had to go without utilities?: No Have you or anyone in your house had to go without enough: No Transportation Issues: No Has anyone in your support network made you feel unsafe?: No Does the patient want assistance with any of the above?: No - Physical Exam Vital Signs: Vital Signs - 24 hr Temp Pulse Resp BP BP Pulse Ox 05/11/24 01:31 106 H 18 93 L 05/11/24 00:41 98.2 F 114 H 19 132/60 91 L 05/10/24 23:30 116 H 19 149/87 91 L 05/10/24 22:46 114 H 22 135/99 93 L 05/10/24 22:30 117 H 24 134/70 81 L 05/10/24 22:00 110 H 19 150/70 94 L 05/10/24 21:30 109 H 17 120/73 94 L 05/10/24 21:00 101 H 26 H 142/69 90 L 05/10/24 20:30 102 H 18 122/82 05/10/24 20:28 100 H 20 134/74 05/10/24 20:05 95 05/10/24 20:01 107 H 25 H 134/74 93 L 05/10/24 19:07 98.5 F 102 H 20 152/89 96 05/10/24 19:01 99 H 20 152/89 91 L GEN: Lying in bed in no acute distress NEURO: No focal deficits, face symmetric HENT: Normocephalic, atraumatic EYES: Extraocular movements intact, pupils round and reactive CV: Regular rate & rhythm, no murmurs, no edema PULM: Clear to auscultation bilaterally, no work of breathing, on room air ABD: Soft, non-distended, normoactive bowel sounds MSK: No joint effusions, full range of motion SKIN: No rashes, no skin discoloration PSYCH: Alert, oriented x3 Results - Labs Lab/Micro Results: Lab Results-Last 24 Hours 05/10/24 05/10/24 05/10/24 Range/Units 19:35 19:35 19:35 WBC 8.6 (3.98-10.04) x10^3/uL RBC 3.96 (3.93-5.22) x10^6/uL Hgb 11.1 L (11.2-15.7) g/dL Hct 35.2 (34.1-44.9) % MCV 88.9 (79.4-94.8) fL MCH 28.0 (25.6-32.2) pg MCHC 31.5 L (32.2-35.5) g/dL RDW 14.4 (11.7-14.4) % Plt Count 331 (182-369) x10^3/uL MPV 8.8 L (9.4-12.3) fL Gran % 75.6 H (34.0-71.1) % Immature Gran % (Auto) 0.5 H (0.001-0.429) % Nucleat RBC Rel Count 0.0 (0.00-0.2) % Eos # (Auto) 0.16 (0.04-0.36) x10^3/uL Immature Gran # (Auto) 0.04 H (0.001-0.031) x10^3u/L Absolute Lymphs (auto) 1.30 (1.18-3.74) x10^3/uL Absolute Monos (auto) 0.56 (0.24-0.86) x10^3/uL Absolute Nucleated RBC 0.00 (0.00-0.012) x10^3u/L Lymphocytes % 15.2 L (19.3-51.7) % Monocytes % 6.5 (4.7-12.5) % Eosinophils % 1.9 (0.7-5.8) % Basophils % 0.3 (0.1-1.2) % Absolute Granulocytes 6.49 H (1.56-6.13) x10^3/uL Basophils # 0.03 (0.01-0.08) x10^3/uL Sodium 136 (135-145) mmol/L Potassium 3.4 L (3.5-5.1) mmol/L Chloride 99 (98-107) mmol/L Carbon Dioxide 26 (22-30) mmol/L Anion Gap 14.0 (5-15) MEQ/L BUN 7 (7-17) mg/dL Creatinine 0.49 L (0.52-1.04) mg/dL Estimated GFR 100.7 ML/MIN Glucose 104 (74-106) mg/dL Calcium 9.0 (8.4-10.2) mg/dL Magnesium 1.7 (1.6-2.3) mg/dL Total Bilirubin 0.70 (0.2-1.3) mg/dL AST 26 (14-36) U/L ALT 17 (0-35) U/L Alkaline Phosphatase 87 (38-126) U/L Troponin I 0.015 (0.000-0.033) ng/mL NT-Pro-B Natriuret Pep (<300) pg/mL Serum Total Protein 6.3 (6.3-8.2) g/dL Albumin 3.5 (3.5-5.0) g/dL Monoscreen (NEGATIVE) Influenza Type A Ag (NEGATIVE) Influenza Type B Ag (NEGATIVE) RSV (PCR) (NEGATIVE) SARS-CoV-2 (PCR) (NEGATIVE) 05/10/24 05/10/24 05/10/24 Range/Units 19:35 19:35 20:15 WBC (3.98-10.04) x10^3/uL RBC (3.93-5.22) x10^6/uL Hgb (11.2-15.7) g/dL Hct (34.1-44.9) % MCV (79.4-94.8) fL MCH (25.6-32.2) pg MCHC (32.2-35.5) g/dL RDW (11.7-14.4) % Plt Count (182-369) x10^3/uL MPV (9.4-12.3) fL Gran % (34.0-71.1) % Immature Gran % (Auto) (0.001-0.429) % Nucleat RBC Rel Count (0.00-0.2) % Eos # (Auto) (0.04-0.36) x10^3/uL Immature Gran # (Auto) (0.001-0.031) x10^3u/L Absolute Lymphs (auto) (1.18-3.74) x10^3/uL Absolute Monos (auto) (0.24-0.86) x10^3/uL Absolute Nucleated RBC (0.00-0.012) x10^3u/L Lymphocytes % (19.3-51.7) % Monocytes % (4.7-12.5) % Eosinophils % (0.7-5.8) % Basophils % (0.1-1.2) % Absolute Granulocytes (1.56-6.13) x10^3/uL Basophils # (0.01-0.08) x10^3/uL Sodium (135-145) mmol/L Potassium (3.5-5.1) mmol/L Chloride (98-107) mmol/L Carbon Dioxide (22-30) mmol/L Anion Gap (5-15) MEQ/L BUN (7-17) mg/dL Creatinine (0.52-1.04) mg/dL Estimated GFR ML/MIN Glucose (74-106) mg/dL Calcium (8.4-10.2) mg/dL Magnesium (1.6-2.3) mg/dL Total Bilirubin (0.2-1.3) mg/dL AST (14-36) U/L ALT (0-35) U/L Alkaline Phosphatase (38-126) U/L Troponin I (0.000-0.033) ng/mL NT-Pro-B Natriuret Pep 725 (<300) pg/mL Serum Total Protein (6.3-8.2) g/dL Albumin (3.5-5.0) g/dL Monoscreen NEGATIVE (NEGATIVE) Influenza Type A Ag NEGATIVE (NEGATIVE) Influenza Type B Ag NEGATIVE (NEGATIVE) RSV (PCR) NEGATIVE (NEGATIVE) SARS-CoV-2 (PCR) NEGATIVE (NEGATIVE) 05/10/24 Range/Units 22:45 WBC (3.98-10.04) x10^3/uL RBC (3.93-5.22) x10^6/uL Hgb (11.2-15.7) g/dL Hct (34.1-44.9) % MCV (79.4-94.8) fL MCH (25.6-32.2) pg MCHC (32.2-35.5) g/dL RDW (11.7-14.4) % Plt Count (182-369) x10^3/uL MPV (9.4-12.3) fL Gran % (34.0-71.1) % Immature Gran % (Auto) (0.001-0.429) % Nucleat RBC Rel Count (0.00-0.2) % Eos # (Auto) (0.04-0.36) x10^3/uL Immature Gran # (Auto) (0.001-0.031) x10^3u/L Absolute Lymphs (auto) (1.18-3.74) x10^3/uL Absolute Monos (auto) (0.24-0.86) x10^3/uL Absolute Nucleated RBC (0.00-0.012) x10^3u/L Lymphocytes % (19.3-51.7) % Monocytes % (4.7-12.5) % Eosinophils % (0.7-5.8) % Basophils % (0.1-1.2) % Absolute Granulocytes (1.56-6.13) x10^3/uL Basophils # (0.01-0.08) x10^3/uL Sodium (135-145) mmol/L Potassium (3.5-5.1) mmol/L Chloride (98-107) mmol/L Carbon Dioxide (22-30) mmol/L Anion Gap (5-15) MEQ/L BUN (7-17) mg/dL Creatinine (0.52-1.04) mg/dL Estimated GFR ML/MIN Glucose (74-106) mg/dL Calcium (8.4-10.2) mg/dL Magnesium (1.6-2.3) mg/dL Total Bilirubin (0.2-1.3) mg/dL AST (14-36) U/L ALT (0-35) U/L Alkaline Phosphatase (38-126) U/L Troponin I 0.024 (0.000-0.033) ng/mL NT-Pro-B Natriuret Pep (<300) pg/mL Serum Total Protein (6.3-8.2) g/dL Albumin (3.5-5.0) g/dL Monoscreen (NEGATIVE) Influenza Type A Ag (NEGATIVE) Influenza Type B Ag (NEGATIVE) RSV (PCR) (NEGATIVE) SARS-CoV-2 (PCR) (NEGATIVE) - Radiology Impressions Radiology Exams & Impressions: Radiology Procedures Category Date Time Status CHEST 1 VIEW (PORTABLE) Stat Exams 11/05/24 19:58 Taken CXR: Left lower lobe consolidation. No pulmonary edema. (Images personally reviewed) - Other Procedures and Tests Respiratory Therapy 05/11/24 01:34 Respiratory Therapy Assessment DAILY 05/11/24 01:46 Incentive Spirometry ROUTINE Assessment/Plan (1) Left lower lobe pneumonia Current Visit: Yes Status: Acute Assessment & Plan: 69-year-old woman with a history of COPD, seizures, hypertension, and GERD, here with left lower lobe pneumonia. ## Left lower lobe pneumonia although no cough, patient has relative hypoxia (see below regarding pleuritic chest pain) and left lower lobe infiltrate. Her report score is relatively low, mainly advanced due to her age. Start Rocephin and azithromycin Follow-up blood culture results ## Pleuritic chest pain, hypoxia hypoxia primarily driven by poor inspiratory effort secondary to pleuritic chest pain. Nature of pain (not exertional, worse with inspiration, worse with palpation) and normal troponins argue against coronary cause of pain. PRN acetaminophen and Percocet Incentive spirometer to encourage deep inspiration ## COPD not requiring oxygen at home. Does not seem to be in a significant flare currently, with no wheezing noted on exam. PRN albuterol CODE STATUS: Full code Prophylaxis: Heparin subcu Diet: Regular Dispo: Place in observation, expect to be able to return home in 1 to 2 days Code(s): J18.9 - PNEUMONIA, UNSPECIFIED ORGANISM Telemedicine Encounter - Telemedicine Encounter Telemedicine Encounter: "The entirety of this encounter was performed via Telemedicine" This visit was performed using real-time audio and video connection between my location and thepatients locationwith the assistance of a surrogateat the patients location. Written or verbal consent was obtained from the patie nt/guardian to perform this visit using[employer]lemedicine technology. Any patient questions regarding the telemedicine interaction were answered.
[2024-05-11 05:12] LABS: Hematocrit 33.5 % (34.1-44.9); Hemoglobin 10.7 g/dL (11.2-15.7); Mean Cell Volume 87.9 fL (79.4-94.8); Mean Corpuscular Hemoglobin 28.1 pg (25.6-32.2); Mean Corpuscular Hgb Concent. 31.9 g/dL (32.2-35.5); Mean Platelet Volume 9.3 fL (9.4-12.3); Platelet Count 314 x10^3/uL (182-369); Red Blood Count 3.81 x10^6/uL (3.93-5.22); Red Cell Distribution Width 14.1 % (11.7-14.4); White Blood Count 7.3 x10^3/uL (3.98-10.04)
[2024-05-11 05:58] LABS: ANION GAP 13.1 MEQ/L (5-15); Calcium 9.2 mg/dL (8.4-10.2); Creatinine 1 0.39 mg/dL (0.52-1.04); EST GLOMERULAR FILTRATION RATE 106.4 ML/MIN; Potassium 3.1 mmol/L (3.5-5.1)
[2024-05-11] MEDS: HEPARIN 5000 UNITS/0.5 ML (HIGH RISK MED) SQ SCH (07:51)
[2024-05-11] MEDS: Reglan 10 MG PO SCH (07:52)
[2024-05-11] MEDS: TYLENOL 325 MG PO PRN (08:25)
--- NOTE | 2024-05-11 08:35 | XRAY ---
Indication: Short of breath. Comparison: March 25, 2024 Portable chest demonstrates new moderate left base infiltrate/atelectasis/effusion. Right lung clear. Heart not enlarged. Bony thorax intact again with osteopenia, degenerative changes, and old left humerus fracture with intact orthopedic hardware.
[2024-05-11] MEDS: K-LYTE PO SCH (08:47)
[2024-05-11] MEDS: Zithromax 500 MG/ 250 ML NaCl Premix 500 MG/250 ML IVPB IV SCH (08:48)
[2024-05-11] MEDS: Lexapro PO SCH (08:48)
[2024-05-11] MEDS: Protonix 40MG Tablet PO SCH (08:48)
[2024-05-11] MEDS: Toprol-Xl 25MG Tablets PO SCH (08:48)
[2024-05-11] MEDS: Robaxin PO SCH (08:49)
[2024-05-11] MEDS ORDERED: DELTASONE 10 MG PO SCH (10:00)
--- NOTE | 2024-05-11 11:41 | PCM.DS ---
Discharge Summary Date of Admission: 05/11/24 00:18 Date of Discharge: 05/11/24 Admitting Physician: RASHARD MONTILLA MD Primary Care Provider: LOW STYLES DO Allergies Allergies amitriptyline [From Elavil] Allergy (Severe, Verified 05/10/24 19:06) aggitation/angry duloxetine [From Cymbalta] Allergy (Severe, Verified 05/10/24 19:06) Nausea and Vomiting Hospital Summary - Hospital Course Hospital Course: is a 69 year old female with h/o COPD, hypertension, and GERD. She presented on 05/10/24 with 4 to 5 days of progressive headache, myalgias, and overall malaise. For the last 2 days, she has developed severe left-sided pleuritic chest pain. She has had minimal cough, but has had some nausea and dyspnea, with increasing use of her home inhaler. Denies any sick contacts. On arrival to the ED, she was noted to have an SpO2 of 91% on room air, improving to 95% on room air with good inspiration. However, she remained in low-grade t achycardia. She was dx with pneumonia and IV antibiotics started. She is RA 93%. SOB and pain have improved. She is wanting to go home later today as she has a dog at home she needs to take care of. K+ is 3.1 and being replaced. Will D/C with K+ replacement and PO antibiotics. She denies CP, SOB, weakness, Abd pain, N/V/D. - Vitals & Intake/Output Vital Signs: Vital Signs Temperature 96.2 F 05/11/24 11:22 Pulse Rate 73 05/11/24 11:22 Respiratory Rate 18 05/11/24 11:22 Blood Pressure 137/65 05/11/24 11:22 O2 Sat by Pulse Oximetry 93 L 05/11/24 11:22 Intake & Output: Intake & Output 05/08/24 05/09/24 05/10/24 05/11/24 11:59 11:59 11:59 11:59 Intake Total 240 Balance 240 Weight 58.3 kg - Lab Result Diagrams: 05/11/24 04:35 05/11/24 04:35 Lab Results-Last 24 Hrs: Lab Results-Last 24 Hours 05/10/24 05/10/24 05/10/24 Range/Units 19:35 19:35 19:35 WBC 8.6 (3.98-10.04) x10^3/uL RBC 3.96 (3.93-5.22) x10^6/uL Hgb 11.1 L (11.2-15.7) g/dL Hct 35.2 (34.1-44.9) % MCV 88.9 (79.4-94.8) fL MCH 28.0 (25.6-32.2) pg MCHC 31.5 L (32.2-35.5) g/dL RDW 14.4 (11.7-14.4) % Plt Count 331 (182-369) x10^3/uL MPV 8.8 L (9.4-12.3) fL Gran % 75.6 H (34.0-71.1) % Immature Gran % (Auto) 0.5 H (0.001-0.429) % Nucleat RBC Rel Count 0.0 (0.00-0.2) % Eos # (Auto) 0.16 (0.04-0.36) x10^3/uL Immature Gran # (Auto) 0.04 H (0.001-0.031) x10^3u/L Absolute Lymphs (auto) 1.30 (1.18-3.74) x10^3/uL Absolute Monos (auto) 0.56 (0.24-0.86) x10^3/uL Absolute Nucleated RBC 0.00 (0.00-0.012) x10^3u/L Lymphocytes % 15.2 L (19.3-51.7) % Monocytes % 6.5 (4.7-12.5) % Eosinophils % 1.9 (0.7-5.8) % Basophils % 0.3 (0.1-1.2) % Absolute Granulocytes 6.49 H (1.56-6.13) x10^3/uL Basophils # 0.03 (0.01-0.08) x10^3/uL Sodium 136 (135-145) mmol/L Potassium 3.4 L (3.5-5.1) mmol/L Chloride 99 (98-107) mmol/L Carbon Dioxide 26 (22-30) mmol/L Anion Gap 14.0 (5-15) MEQ/L BUN 7 (7-17) mg/dL Creatinine 0.49 L (0.52-1.04) mg/dL Estimated GFR 100.7 ML/MIN Glucose 104 (74-106) mg/dL Calcium 9.0 (8.4-10.2) mg/dL Magnesium 1.7 (1.6-2.3) mg/dL Total Bilirubin 0.70 (0.2-1.3) mg/dL AST 26 (14-36) U/L ALT 17 (0-35) U/L Alkaline Phosphatase 87 (38-126) U/L Troponin I 0.015 (0.000-0.033) ng/mL NT-Pro-B Natriuret Pep (<300) pg/mL Serum Total Protein 6.3 (6.3-8.2) g/dL Albumin 3.5 (3.5-5.0) g/dL Monoscreen (NEGATIVE) Influenza Type A Ag (NEGATIVE) Influenza Type B Ag (NEGATIVE) RSV (PCR) (NEGATIVE) SARS-CoV-2 (PCR) (NEGATIVE) 05/10/24 05/10/24 05/10/24 Range/Units 19:35 19:35 20:15 WBC (3.98-10.04) x10^3/uL RBC (3.93-5.22) x10^6/uL Hgb (11.2-15.7) g/dL Hct (34.1-44.9) % MCV (79.4-94.8) fL MCH (25.6-32.2) pg MCHC (32.2-35.5) g/dL RDW (11.7-14.4) % Plt Count (182-369) x10^3/uL MPV (9.4-12.3) fL Gran % (34.0-71.1) % Immature Gran % (Auto) (0.001-0.429) % Nucleat RBC Rel Count (0.00-0.2) % Eos # (Auto) (0.04-0.36) x10^3/uL Immature Gran # (Auto) (0.001-0.031) x10^3u/L Absolute Lymphs (auto) (1.18-3.74) x10^3/uL Absolute Monos (auto) (0.24-0.86) x10^3/uL Absolute Nucleated RBC (0.00-0.012) x10^3u/L Lymphocytes % (19.3-51.7) % Monocytes % (4.7-12.5) % Eosinophils % (0.7-5.8) % Basophils % (0.1-1.2) % Absolute Granulocytes (1.56-6.13) x10^3/uL Basophils # (0.01-0.08) x10^3/uL Sodium (135-145) mmol/L Potassium (3.5-5.1) mmol/L Chloride (98-107) mmol/L Carbon Dioxide (22-30) mmol/L Anion Gap (5-15) MEQ/L BUN (7-17) mg/dL Creatinine (0.52-1.04) mg/dL Estimated GFR ML/MIN Glucose (74-106) mg/dL Calcium (8.4-10.2) mg/dL Magnesium (1.6-2.3) mg/dL Total Bilirubin (0.2-1.3) mg/dL AST (14-36) U/L ALT (0-35) U/L Alkaline Phosphatase (38-126) U/L Troponin I (0.000-0.033) ng/mL NT-Pro-B Natriuret Pep 725 (<300) pg/mL Serum Total Protein (6.3-8.2) g/dL Albumin (3.5-5.0) g/dL Monoscreen NEGATIVE (NEGATIVE) Influenza Type A Ag NEGATIVE (NEGATIVE) Influenza Type B Ag NEGATIVE (NEGATIVE) RSV (PCR) NEGATIVE (NEGATIVE) SARS-CoV-2 (PCR) NEGATIVE (NEGATIVE) 05/10/24 05/11/24 05/11/24 Range/Units 22:45 04:35 04:35 WBC 7.3 (3.98-10.04) x10^3/uL RBC 3.81 L (3.93-5.22) x10^6/uL Hgb 10.7 L (11.2-15.7) g/dL Hct 33.5 L (34.1-44.9) % MCV 87.9 (79.4-94.8) fL MCH 28.1 (25.6-32.2) pg MCHC 31.9 L (32.2-35.5) g/dL RDW 14.1 (11.7-14.4) % Plt Count 314 (182-369) x10^3/uL MPV 9.3 L (9.4-12.3) fL Gran % (34.0-71.1) % Immature Gran % (Auto) (0.001-0.429) % Nucleat RBC Rel Count (0.00-0.2) % Eos # (Auto) (0.04-0.36) x10^3/uL Immature Gran # (Auto) (0.001-0.031) x10^3u/L Absolute Lymphs (auto) (1.18-3.74) x10^3/uL Absolute Monos (auto) (0.24-0.86) x10^3/uL Absolute Nucleated RBC (0.00-0.012) x10^3u/L Lymphocytes % (19.3-51.7) % Monocytes % (4.7-12.5) % Eosinophils % (0.7-5.8) % Basophils % (0.1-1.2) % Absolute Granulocytes (1.56-6.13) x10^3/uL Basophils # (0.01-0.08) x10^3/uL Sodium 139 (135-145) mmol/L Potassium 3.1 L (3.5-5.1) mmol/L Chloride 102 (98-107) mmol/L Carbon Dioxide 27 (22-30) mmol/L Anion Gap 13.1 (5-15) MEQ/L BUN 6 L (7-17) mg/dL Creatinine 0.39 L (0.52-1.04) mg/dL Estimated GFR 106.4 ML/MIN Glucose 144 H (74-106) mg/dL Calcium 9.2 (8.4-10.2) mg/dL Magnesium (1.6-2.3) mg/dL Total Bilirubin (0.2-1.3) mg/dL AST (14-36) U/L ALT (0-35) U/L Alkaline Phosphatase (38-126) U/L Troponin I 0.024 (0.000-0.033) ng/mL NT-Pro-B Natriuret Pep (<300) pg/mL Serum Total Protein (6.3-8.2) g/dL Albumin (3.5-5.0) g/dL Monoscreen (NEGATIVE) Influenza Type A Ag (NEGATIVE) Influenza Type B Ag (NEGATIVE) RSV (PCR) (NEGATIVE) SARS-CoV-2 (PCR) (NEGATIVE) - Radiology Exams Ordered Rad Exams-Entire Visit: Radiology Procedures Category Date Time Status CHEST 1 VIEW (PORTABLE) Stat Exams 05/10/24 19:58 Completed - Procedures and Test Procedures and Tests throughout Hospitalization: Therapy Orders & Screens 05/11/24 00:22 Respiratory Therapy Consult ONCE Comment: Reason For Exam: 05/11/24 01:34 Respiratory Therapy Assessment DAILY Comment: Diagnosis: left lobe pneumonia 05/11/24 01:46 Incentive Spirometry ROUTINE Comment: Diagnosis: left lobe pneumonia 05/11/24 08:00 ST Screen per Nursing Assess ONCE Comment: Protocol Order Physician Instructions: Greater than [address] Admission Screening Reason For Exam: Triggered on Admission Diagnosis: left lobe pneumonia CVA/Dyshpagia/Aphasia: No Cognitive Deficits: No Dehydration/Nutrition Deficit: No Reflux: No Oral-Motor Difficulties: No Pneumonia: Yes Care Home Resident: No Total Points: 5 Discharge Exam General Appearance: no apparent distress, alert Neurologic Exam: alert, oriented x 3, cooperative, normal mood/affect, nml cerebellar function, sensation nml, No motor deficits Eye Exam: PERRL, EOMI, eyes nml inspection Ears, Nose, Throat Exam: normal ENT inspection, pharynx normal, moist mucous membranes Neck Exam: normal inspection, non-tender, supple, full range of motion Respiratory Exam: normal breath sounds, lungs clear, other (rib pain with inspiration), No respiratory distress Cardiovascular Exam: regular rate/rhythm, normal heart sounds Gastrointestinal/Abdomen Exam: soft, No tenderness, No mass Pelvic Exam: deferred Rectal Exam: deferred Back Exam: normal inspection, normal range of motion, No CVA tenderness, No vertebral tenderness Extremity Exam: normal inspection, normal range of motion Skin Exam: normal color, warm, dry Final Diagnosis/Problem List - Final Discharge Diagnosis/Problem (1) Left lower lobe pneumonia Current Visit: Yes Status: Acute Assessment & Plan: although no cough, patient has relative hypoxia (see below regarding pleuritic chest pain) and left lower lobe infiltrate. Her report score is relatively low, mainly advanced due to her age. Start Rocephin and azithromycin Follow-up blood culture results - CBC, CMP reviewed - Will d/c with PO antibiotics - RA 93% Code(s): J18.9 - PNEUMONIA, UNSPECIFIED ORGANISM (2) Hypokalemia Current Visit: Yes Status: Acute Assessment & Plan: - K+ 3.1- replaced- trend - will d/c with PO K+ replacement Code(s): E87.6 - HYPOKALEMIA (3) COPD (chronic obstructive pulmonary disease) Current Visit: Yes Status: Chronic Assessment & Plan: not requiring oxygen at home. Does not seem to be in a significant flare currently, with no wheezing noted on exam. PRN albuterol (4) Depression Current Visit: Yes Status: Chronic Assessment & Plan: - Continue Lexapro Code(s): F32.A - DEPRESSION, UNSPECIFIED (5) Hypertension Current Visit: No Status: Chronic Assessment & Plan: - Continue BP meds - BP stable Code(s): I10 - ESSENTIAL (PRIMARY) HYPERTENSION - Discharge Discharge Date: 05/11/24 Disposition: Home, Self-Care Condition: Stable Prescriptions: New Prednisone 10 mg [Deltasone 10 mg] 10 mg PO TID #12 tablet Azithromycin 250 mg [Zithromax 250 MG TABLET] 250 mg PO ZPACK #6 tablet Continue Dexlansoprazole [Dexilant] 60 mg PO DAILY Metoprolol Succinate [Toprol Xl] 25 mg PO DAILY Albuterol 2 puffs IH Q4H PRN PRN PRN Reason: Shortness Of Breath Meloxicam 7.5 mg PO DAILY Escitalopram Oxalate [Lexapro] 10 mg PO DAILY Ondansetron [Ondansetron Odt] 8 mg PO Q6H PRN PRN Reason: Nausea methocarbamoL [Methocarbamol] 500 mg PO TID Mvit-Mins/Folic Acid/Soy Isofl [One-A-Day Menopause Formula Tb] 1 each PO BID Metoclopramide HCl 5 mg PO BIDAC Cholecalciferol (Vitamin D3) [Vitamin D] 1 tablet PO DAILY Cefdinir 300 mg PO BID #14 cap Oxycodone HCl/Acetaminophen [Percocet 5-325 mg Tablet] 1 each PO Q12H PRN PRN #4 tablet MDD 2 PRN Reason: Moderate To Severe Pain Orphenadrine Citrate 100 mg [Norflex 100 MG Tablet] 100 mg PO BID #10 tab Prednisone 10 mg [Deltasone 10 mg] 5 mg PO TID Instructions: Pneumonia in adults - Discharge instructions Additional Instructions: Do not take potassium on an empty stomach. Follow up with PCP for repeat labs. Follow up with: LOW STYLES DO [Primary Care Provider] - 05/18/24 3:00 pm
[2024-05-11 14:36] LABS: MAGNESIUM 2.1 mg/dL (1.6-2.3)
[2024-05-11 14:39] LABS: Potassium 4.8 mmol/L (3.5-5.1)
[2024-05-11 16:32] VITALS: BP 142/82; PULSE 68; RESP 16; TEMP 96; O2SAT 94
[2024-05-11] MEDS ORDERED: ROCEPHIN 1 GM / 100 ML NaCl 1 GM/100 ML IVPB IV SCH (22:00)
== END 2024-05-11 15:53 | disposition home or self-care (01) ==
LOC: ED 18:29 → MED SURG 05-11 00:18
PROVIDERS: ADMIT Internal Medicine; ATTEND Internal Medicine
DX: J18.9 Pneumonia, unspecified organism (principal); E87.6 Hypokalemia; J44.9 Chronic obstructive pulmonary disease, unspecified; F32.A Depression, unspecified; I10 Essential (primary) hypertension; K21.9 Gastro-esophageal reflux disease without esophagitis; R09.02 Hypoxemia; R07.9 Chest pain, unspecified; R51.9 Headache, unspecified; Z79.899 Other long term (current) drug therapy; Z87.891 Personal history of nicotine dependence
CPT/HCPCS: 0241U; 36000; 36415; 71045; 80048; 80053; 83735; 83880; 84132; 84484; 85025; 85027; 86308; 87040; 93005; 93041; 94760; 96365; 96374; 99285; J0456; J0696; J1644; J2919; Q3014; A9270-GY